=== PATIENT | male | born 1945 | race Caucasian/White ===

== ENCOUNTER 2019-11-30 15:22 | Observation (INO) | payer MEDICARE, OTHER ==
[~2019-11-30] VITALS: Ht 172.7 cm; Wt 75.8 kg
[~2019-11-30 15:22] MED LIST: ALLOPURINOL300 MG PO; ASPIRIN325 MG PO; DIOVAN HCT 1601 EAC1 PO; THERAGRAN-M PR1 EAC1 PO
--- NOTE | 2019-11-30 15:49 | Emergency Department Note ---
History of Present Illnes History of Present Illness Chief Complaint: Fever History of Present Illness This is a 74 year old male, with a history of hypertension, hyperlipidemia, history of hemorrhagic CVA with left hemiparesis, and gout who presents with a 2 day history of intermittent fevers. His last temp was 102 this morning, but patient nor his can recall whether or not he took any medication for the fever. His current temp is 99.2. Patient's , who is his primary caregiver, noted what appeared to be blood in his urine yesterday, on the diaper. However, patient has been taking OTC "Azo" daily for the past month, as he was having some inconvenient urinary incontinence, and the Azo seemed to help with the incontinence issue. He denies ever having had any dysuria, but he was having frequency and urgency. He has had no previous history of UTI, pyelonephritis, or nephrolithiasis. Patient denies any abdominal pain, chest pain, shortness of breath, cough, upper respiratory symptoms, diarrhea, nausea, or vomiting. He has had some decreased appetite for the past 2 days. He denies any known sick contacts or exposure to Covid 19. Historian: Patient, Family Member () Arrival Mode: Car History limited by: condition of the patient (Pt has dysarthria and speaks very slowly and somewhat difficult to understand; provides most of history;) Netbackup Administrator Required: No Onset (how long ago): day(s) (2) Location: general Quality: fever Radiation: Reports non-radiation Severity: moderate Onset quality: sudden Duration (how long): day(s) (2) Timing of current episode: constant Progression: waxing and waning Chronicity: new Context: Denies recent illness, Denies recent surgery, Denies trauma/injury Relieving factors: medication (He took Advil yesterday;) Exacerbating factors: none Associated symptoms: Reports fever/chills, Reports headaches (chronic, frequent headaches), Reports loss of appetite, Reports malaise; Denies confusion, Denies chest pain, Denies cough, Denies nausea/vomiting, Denies rash, Denies shortness of breath, Denies weakness Treatments prior to arrival: none Risk factors: age, general debility, due to hx of CVA with left hemiparesis Past Medical/Family History Physician Review I have reviewed the patient's past medical and family history. Any updates have been documented here. Past Medical History Recent Fever: Yes Clinical Suspicion of Infectio: Yes New/Unexplained Change in Ment: No Past Medical History: Hypertension, CVA (Hemorrhaghic CVA in 2016;), Hyperlipedemia Other Medical History: Gout Past Surgical History: Hernia Repair (Left inguinal ) Social History Smoking Cessation: Never Smoker Alcohol Use: None Any Illegal Drug Use: No TB Exposure/Symptoms: No Physically hurt or threatened: No Other Last Tetanus: < 5 years; Any Pre-Existing Lines (PICC,: No Is patient up to date on immun: Yes Review of Systems Review of Systems Constitutional: Reports chills, Reports fever, Reports malaise EENTM: Reports no symptoms Cardiovascular: Denies chest pain, Denies edema Respiratory: Denies chest congestion, Denies cough, Denies pain on inspiration, Denies dyspnea Gastrointestinal: Denies abdominal pain, Denies diarrhea, Denies nausea, Denies vomiting Genitourinary: Reports frequency, Reports hematuria; Denies dysuria, Denies pain Musculoskeletal: Denies back pain, Denies joint pain, Denies muscle pain, Denies neck pain Integumentary: Denies change in color, Denies rash Neurological: Reports headache (frequent, intermittent, no worse than usual;), Reports pre-existing deficit (Left hemiparesis;) Psychological: Reports no symptoms Hematological/Lymphatic: Reports no symptoms Review of other systems: All other systems negative Physical Exam Related Data Allergies: Coded Allergies: No Known Allergies (Unverified , 11/19/13) Vital signs reviewed: Yes Physical Exam CONSTITUTIONAL Constitutional: Present well-developed, Present well-nourished, Present other (LLE in a splint for foot drop; ); Absent ill appearing HENT HENT: Present normocephalic, Present atraumatic, Present oropharynx normal, Present mucosae dry, Present nose normal; Absent nasal congestion, Absent rhinorrhea, Absent oropharyngeal exudate HENT L/R: Present left ext ear normal, Present right ext ear normal EYES Eyes: Reports PERRL, Reports conjunctivae normal NECK Neck: Present ROM normal, Present supple; Absent cervical adenopathy PULMONARY Pulmonary: Present effort normal, Present breath sounds normal CARDIOVASCULAR Cardiovascular: Present regular rhythm, Present heart sounds normal, Present capillary refill normal, Present normal rate GASTROINTESTINAL Abdominal: Present soft, Present nontender, Present bowel sounds normal; Absent distension, Absent guarding, Absent rebound GENITOURINARY Genitourinary: Present exam deferred SKIN Skin: Present warm, Present dry; Absent erythema MUSCULOSKELETAL Musculoskeletal: Present deformity (LUE - contracted and unable to use much;); Absent edema, Absent tenderness, Absent swelling NEUROLOGICAL Neurological: Present alert, Present oriented x 3, Present abnormal coordination, Present abnormal gait, Present weakness (LUE/LLE hemiparesis; left facial droop; ) PSYCHOLOGICAL Psychological: Present mood/affect normal, Present behavior normal Results Laboratory Lab results reviewed: Yes Laboratory comments WBC = 12.3, no anemia, nl platelets' MetLac - glu = 167; Lactic Acid = 2.92; PT = 13.4, INR = 1.1; PTT - to be done at hospital, as cannot be run at [facility]. UA - blo - moderate, pro = 100 mg/dl, uro = 2.0, nit - neg., Leuk - Large; 2nd Lactic Acid 19:30 - 1.08; Blood cx x 2 - drawn and pend; Urine culture - pend; Imaging Imaging results reviewed: Yes Impressions [place] [address] Patient Name: KERLINE MORAN MR #: [id number] : 1945 Age/Sex: 74/M Req #: [id number] Adm Physician: Ordered by: AMBER GREY MD Report #: [id number] Location: [facility] Room/Bed: Procedure: [id number] HOPD/CXR 1 VEW - HOPD Exam Date: 11/30/19 Exam Time: 1637 REPORT STATUS: Signed EXAMINATION: CXR 1 VEW - HOPD INDICATION: fever COMPARISON: None FINDINGS: AP view TUBES and LINES: None. . LUNGS/PLEURA: Lungs are well inflated. There is no evidence of pneumonia or pulmonary edema.. There is no pleural effusion or pneumothorax. HEART AND MEDIASTINUM: The cardiomediastinal silhouette is unremarkable. BONES AND SOFT TISSUES: No acute osseous lesion. Soft tissues are unremarkable. UPPER ABDOMEN: No free air under the diaphragm. IMPRESSION: No acute thoracic abnormality. Signed by: Evgeny Avery MD on 11/30/2019 4:39 PM Dictated By: EVGENY AVERY MD 38 Transcribed By: SUDHEER on 11/30/191638 COPY TO: AMBER GREY MD~ Diagnostics Tests Diagnostic test(s) reviewed: Yes Assessment & Plan Medical Decision Making MDM - Discussed results with patient and , along with need for admission for treatment of Sepsis and UTI. They are agreeable. - Pt taking "Azo" DAILY x 1 month for urinary incontinence, which likely masked his symptoms for quite some time, until he developed fever 2 days ago. 17:50 - case discussed with Dr. Dax Centeno, who was agreeable to admission. He requested "Admit" status. 19:30 - second Lactic acid = 1.08, following 1L of IV NS; Vital Signs remain stable with NO evidence of septic shock. Bed assigned and awaiting transport to [facility], via EMS. Assessment & Plan Final Impression: (1) Sepsis (2) UTI (urinary tract infection) (3) Hypertension (4) Hyperlipidemia (5) History of CVA with residual deficit Depart Disposition: ADMITTED (to [facility] by Dr. Dax Centeno) Home Meds Reported Medications Aspirin (ASPIRIN) 325 Mg Tablet, 325 MG PO PRN, TAB 11/19/13 Valsartan/Hydrochlorothiazide (DIOVAN HCT 160-25 MG TABLET) 1 Each Tablet, MG PO DAILY 11/19/13 Allopurinol (ALLOPURINOL) 300 Mg Tablet, 300 MG PO DAILY, #30 TAB 11/19/13 AMBER GREY MD Nov 30, 2019 15:49
--- NOTE | 2019-11-30 16:43 | Diagnostic Imaging Report ---
EXAMINATION: CXR 1 VEW - HOP INDICATION: fever COMPARISON: None FINDINGS: AP view TUBES and LINES: None. . LUNGS/PLEURA: Lungs are well inflated. There is no evidence of pneumonia or pulmonary edema.. There is no pleural effusion or pneumothorax. HEART AND MEDIASTINUM: The cardiomediastinal silhouette is unremarkable. BONES AND SOFT TISSUES: No acute osseous lesion. Soft tissues are unremarkable. UPPER ABDOMEN: No free air under the diaphragm. IMPRESSION: No acute thoracic abnormality. Signed by: Evgeny Frederick MD on 11/30/2019 4:39 PM
[2019-11-30] MEDS ORDERED: SODIUM CHLORIDE 0.9% 1000ML 1,000 ML IV SCH (17:00)
[2019-11-30] MEDS ORDERED: CEFTRIAXONE SOD 1 GM VIAL ONE (17:10)
[2019-11-30] MEDS ORDERED: SODIUM CHLORIDE 0.9% 1000ML 1,000 ML ONE ×2 (17:10→20:32)
[2019-11-30] MEDS ORDERED: CEFTRIAXONE SOD 1 GM/NS 50 ML 50 ML IV ONE (17:10)
[2019-11-30] MEDS: CEFTRIAXONE SOD 2 GM/NS 100 ML 100 ML IV SCH (17:15)
[2019-11-30] MEDS ORDERED: ONDANSETRON HCL INJ 2MG/ML 2ML 2 MG/ML VIAL IV PRN (18:00)
[2019-11-30] MEDS ORDERED: SODIUM CHLORIDE FLUSH 10 ML SYR INJ PRN (18:00)
--- OUTSIDE RECORDS SUMMARY | 2019-11-30 18:06 | XMS REPORT | Continuity of Care Document ---
Author Author [facility] [employer] Jaramillo [employer] Address Unknown Phone Unavailable Care Team Providers Care Sheet Turner Name Role Phone [employer] Unavailable Un available Problems Problem Status Onset Date Classification Date Reported Comments Source G81.94 Active 10/05/2016 [facility] STROKE, LT SIDE Active 06/22/2016 [facility] STROKE LEFT SIDE Active 03/27/2016 [facility] LEFT LEG WEAKNESS Active 03/27/2016 [facility] CVA Active 0 09/17/2015 [facility] LEFT LEG/STROKE Active 08/13/2015 [facility] STROKE Active 2014 [facility] LIFE FLIGHT Active 2014 [facility] Foot-drop (finding) Active Problem 08/11/2017 [facility] Gout (disorder) Active Problem 08/11/2017 [facility] History of cerebrovascular accident with residual deficit (situation) Active Prob mandy 08/11/2017 [facility] Hypertensive disorder, systemic arterial (disorder) Active Problem 08/11/2017 [facility] Impaired fasting glycaemia (disorder) Active Problem [facility] Left hemiplegia (disorder) [facility] hyperlipidemia (disorder) Active Problem [facility] Recurrent major depressive episodes, mod erate (disorder) Active Prob mandy 08/11/2017 [facility] Shoulder pain (finding) Active Problem 08/11/2017 [facility] [place] CVA Active [facility] STROKE LT SIDE Active [facility] sadena Medications Medication Details Route Status Patient Instructions Ordering Provider Order Date Source Triamcinolone Acetonide 1 MG/ML Topical Cream See Instructions, APPLY EXTERNALLY TO THE AFFECTED AREA DAILY NEEDED, # 60 gm, 1 Refill(s), Pharmacy: [id number] Active 05/05/2017 [facility] Lisinopril 10 mg, Route: PO, D rug form: TAB, Daily, Dosing Weight 78.239, kg, Start date: 11/06/14 9:00:00, Duration: 30 day, Stop date: 12/05/14 9:00:00 No Longer Active 11/06/2014 [facility] losartan 25 mg oral tablet 25 mg = 1 tab, PO, Daily, # 90 tab, 0 Refill(s) Active 11/06/2014 [facility] lisinopril 20 mg oral tablet 2 0 mg, PO, Daily, # 90 tab, 2 Refill(s) Inactive 11/06/2014 [facility] Aspirin 81 MG Enteric Coated Tablet 81 mg = 1 tab, PO, Daily, # 30 tab, 0 Refill(s) Active 11/06/2014 [facility] lisinopril 10 mg oral tablet 1 0 mg = 1 tab, PO, Daily, # 30 tab, 0 Refill(s) Inactive 11/06/2014 [facility] atorvastatin 80 mg oral tablet 80 mg = 1 tab, PO, Bedtime, # 30 tab, 0 Refill(s) Active 11/06/2014 [facility] atorvastatin 80 mg, Route: PO, Drug form: TAB, Bedtime, Dosing Weight 78.239, kg, Start date: 11/05/14 21:00:00, Duration: 30 day, Stop date: 12/04/14 21:00:00 Inactive 11/06/2014 [facility] heparin Notes: porcine heparin No Longer Active 11/05/2014 [facility] Aspirin Notes: Do not crush or chew. (Same As: Ecotrin) No Longer Active 11/05/2014 [facility] Zyloprim Notes: (Same as: Zylo prim) No Longer Active 11/05/2014 [facility] Allopurinol Notes: (Same as: Z yloprim) Inactive 11/05/2014 [facility] Lisinopril Notes: (Same as: Pr inivil, Zestril) No Longer Active 11/05/2014 [facility] lansoprazole 30 mg, Route: NG, Drug form: SUSP, Daily, Dosing Weight 79.091, kg, Start date: 11/05/14 9:00:00, Duration: 30 day, Stop date: 12/04/14 9:00:00 No Longer Active 11/05/2014 [facility] pantoprazole 40 mg, Route: IVP , Drug form: INJ, Daily, Dosing Weight 79.091, kg, Start date: 11/05/14 9:00:00, Duration: 30 day, Stop date: 12/04/14 9:00:00 Inactiv e 11/05/2014 [facility] Folic Acid Notes: (Same as: Fo lvite) No Longer Active 11/05/2014 [facility] Thiamine Notes: (Same As: Mechelle min B1) No Longer Active 11/05/2014 [facility] multivitamin Notes: (Same as:T marcus) Take with food. No Longer Active 11/05/2014 [facility] Famotidine Notes: (Same as: Pe pcid) No Longer Active 11/05/2014 [facility] Docusate 100 mg, 1 cap, Route: PO, Drug form: CAP, Q12H, Dosing Weight 79.091, kg, Start date: 11/04/14 21:00:00, Duration: 30 day, Stop date: 12/04/14 9:00:00 No Longer Active 11/05/2014 [facility] Lipitor Notes: Same as Lipitor No Longer Active 11/05/2014 [facility] allopurinol 300 mg oral tablet 300 mg = 1 tab, PO, Daily, 0 Refill(s) Active 11/05/2014 [facility] Regular Insulin, Human 100 UNT/ML Injectable Solution 60 units) Stable for 28 days at room temperature Expires in days from Date No Longer Active 11/05/2014 [facility] Dextrose 50% Syringe 25 gm, 50 mL, Route: IVP, Drug Form: INJ, Dosing Weight 79.091, kg, PRN, PRN Abnormal Lab Result, Start date: 11/04/14 19:36:00, Duration: 30 day, Stop date: 12/04/14 19:35:00 No Longer Active 11/05/2014 [facility] iodixanol Special Instructions : Dose = 2.2ml/kg, Max dose = 150ml -- "To be infused by Radiology Staff ONLY" Inactive 11/05/2014 [facility] enalapril Notes: (Same as: Vas otec-IV) No Longer Active 11/05/2014 [facility] Labetalol 105 mmHg, Priority: Routine, Start date: 11/04/14 19:02:00, Duration: 3 doses or times, Stop date: Limited # of times No Longer Active 11/05/2014 [facility] Acetaminophen Notes: Do not ex ceed 4 gm/day. (Same as: Tylenol) No Longer Active 11/05/2014 [facility] Bisacodyl Notes: (Same As: Dul colax, Bisco-Lax) No Longer Active 11/05/2014 [facility] Saline Flush 0.9% Notes: (Same as: BD Posiflush) No Longer Active 2014 [facility] Allergies, Adverse Reactions, Alerts Substance Category Reaction Severity Reaction type Status Date Reported Comments Source REINA Inhibitors Assertion Drug allergy Active [facility] Immunizations Immunization Date Given Site Status Last Updated Comments Source influenza virus vaccine, inactivated<sup>1</sup> 11/17/2016 Right Deltoid completed Mikey Result Comment: patient waited 15 min with no reaction [facility] Hx influenza vaccine-unspecified 01/26/2016 completed C rfeeman [facility] Hx pneumococcal vaccine 2014 completed C freeman [facility] Results Order Name Results Value Reference Range Date Interpretation Comments Source LIPIDS LDL Direct 108 <=99 mg/dL 11/06/2014 [facility] SPECIAL CHEMISTRY Hgb A1C 5.8 <=5.6 % 11/06/2014 [facility] ELECTROLYTES AGAP 14.1 10.0 - 20.0 11/06/2014 [facility] ELECTROLYTES Bili Total 1.1 0.2 - 1.3 11/06/2014 [facility] ELECTROLYTES AST 57 0 - 37 11/06/2014 [facility] ELECTROLYTES ALT 26 0 - 65 11/06/2014 [facility] ELECTROLYTES Alk Phos 55 39 - 136 11/06/2014 [facility] ELECTROLYTES Albumin Lvl 4.0 3.5 - 5.0 11/06/2014 [facility] ELECTROLYTES Potassium Lvl 4.1 3.5 - 5.1 11/06/2014 [facility] ELECTROLYTES BUN 8 7 - 22 11/06/2014 [facility] ELECTROLYTES Glucose Lvl 104 70 - 99 11/06/2014 [facility] ELECTROLYTES Sodium Lvl 139 135 - 145 11/06/2014 [facility] ELECTROLYTES Creatinine Lvl 1.1 0.5 - 1.4 11/06/2014 [facility] ELECTROLYTES A/G Ratio 1.2 0.7 - 1.6 11/06/2014 [facility] ELECTROLYTES B/C Ratio 7 6 - 25 11/06/2014 [facility] ELECTROLYTES Globulin 3.2 2.0 - 4.0 11/06/2014 [facility] ELECTROLYTES CO2 27 24 - 32 11/06/2014 [facility] ELECTROLYTES Chloride Lvl 102 95 - 109 11/06/2014 [facility] ELECTROLYTES Total Protein 7.2 6.4 - 8.4 11/06/2014 [facility] ELECTROLYTES Calcium Lvl 8.9 8.5 - 10.5 11/06/2014 [facility] ELECTROLYTES eGFR 68 11/06/2014 Result Comment: The eGFR is calculated using the CKD-EPI formula. In most young, healthy individuals the eGFR will be >90 mL/min/1.73m2. The eGFR declines with age. An eGFR of 60-89 may be normal in some populations, particularly the elderly, for whom the CKD-EPI formula has not been extensively validated. Use of the eGFR is not recommended in the following populations:

Individuals with unstable creatinine concentrations, including patients and those with serious co-morbid conditions.

Patients with extremes in muscle mass or diet.

The data above are obtained from the National Kidney Disease Education Program (NKDEP) which additionally recommends that when the eGFR is used in patients with extremes of body mass index for purposes of drug dosing, the eGFR should be multiplied by the estimated BMI. [facility] CHEM PANEL eGFR 76 11/05/2014 Result Comment: The eGFR is calculated using the CKD-EPI formula. In most young, healthy individuals the eGFR will be >90 mL/min/1.73m2. The eGFR declines with age. An eGFR of 60-89 may be normal in some populations, particularly the elderly, for whom the CKD-EPI formula has not been extensively validated. Use of the eGFR is not recommended in the following populations:

Individuals with unstable creatinine concentrations, including patients and those with serious co-morbid conditions.

Patients with extremes in muscle mass or diet.

The data above are obtained from the National Kidney Disease Education Program (NKDEP) which additionally recommends that when the eGFR is used in patients with extremes of body mass index for purposes of drug dosing, the eGFR should be multiplied by the estimated BMI. [facility] CHEM PANEL Calcium Lvl 8.7 8.5 - 10.5 11/05/2014 [facility] CHEM PANEL CO2 20 24 - 32 11/05/2014 [facility] CHEM PANEL AGAP 16.7 10.0 - 20.0 11/05/2014 [facility] CHEM PANEL Creatinine Lvl 1.0 0.5 - 1.4 11/05/2014 [facility] CHEM PANEL Sodium Lvl 137 135 - 145 11/05/2014 [facility] CHEM PANEL B/C Ratio 6 6 - 25 11/05/2014 [facility] CHEM PANEL Total Protein 7.6 6.4 - 8.4 11/05/2014 [facility] CHEM PANEL Albumin Lvl 4.1 3.5 - 5.0 11/05/2014 [facility] CHEM PANEL Glucose Lvl 111 70 - 99 11/05/2014 [facility] CHEM PANEL BUN 6 7 - 22 11/05/2014 [facility] CHEM PANEL Potassium Lvl 3.7 3.5 - 5.1 11/05/2014 [facility] CHEM PANEL Chloride Lvl 104 95 - 109 11/05/2014 [facility] CHEM PANEL AST 44 0 - 37 11/05/2014 [facility] CHEM PANEL Alk Phos 53 39 - 136 11/05/2014 [facility] CHEM PANEL Bili Total 0.9 0.2 - 1.3 11/05/2014 [facility] CHEM PANEL ALT 31 0 - 65 11/05/2014 [facility] CHEM PANEL Globulin 3.5 2.0 - 4.0 11/05/2014 [facility] CHEM PANEL A/G Ratio 1.2 0.7 - 1.6 11/05/2014 [facility] CHEM PANEL Bili Direct 0.2 0.0 - 0.3 11/05/2014 [facility] HEMATOLOGY INR 1.83 0.85 - 1.17 11/05/2014 [facility] HEMATOLOGY PT 21.6 12.0 - 14.7 11/05/2014 [facility] HEMATOLOGY PTT 37.1 22.9 - 35.8 11/05/2014 [facility] HEMATOLOGY Hct 42.6 42.0 - 54.0 11/05/2014 [facility] HEMATOLOGY RBC 4.32 4.70 - 6.10 11/05/2014 [facility] HEMATOLOGY WBC 11.5 3.7 - 10.4 11/05/2014 [facility] HEMATOLOGY Hgb 14.1 14.0 - 18.0 11/05/2014 [facility] HEMATOLOGY RDW 13.0 11.5 - 14.5 11/05/2014 [facility] HEMATOLOGY MPV 7.6 7.4 - 10.4 11/05/2014 [facility] HEMATOLOGY Platelet 255 133 - 450 11/05/2014 [facility] HEMATOLOGY MCHC 33.1 32.0 - 36.0 11/05/2014 [facility] HEMATOLOGY MCH 32.6 27.0 - 31.0 11/05/2014 [facility] HEMATOLOGY MCV 98.6 80.0 - 94.0 11/05/2014 [facility] HEMATOLOGY Sed Rate 3 0 - 15 11/05/2014 [facility] HEMATOLOGY Monocytes # 1.1 0.0 - 0.8 11/05/2014 [facility] HEMATOLOGY Lymphocytes # 1.3 1.0 - 5.5 11/05/2014 [facility] HEMATOLOGY Segs-Bands # 9.1 1.5 - 8.1 11/05/2014 [facility] HEMATOLOGY Lymphocytes 11.0 20.0 - 40.0 11/05/2014 [facility] HEMATOLOGY Segs 79.2 45.0 - 75.0 11/05/2014 [facility] HEMATOLOGY Eosinophils 0.2 0.0 - 4.0 11/05/2014 [facility] HEMATOLOGY Basophils 0.3 0.0 - 1.0 11/05/2014 [facility] HEMATOLOGY Monocytes 9.3 2.0 - 12.0 11/05/2014 [facility] LIPIDS LDL (Calculated) 107 <=99 mg/dL 11/05/2014 [facility] LIPIDS VLDL 26 11/05/2014 [facility] LIPIDS HDL 72 >=61 mg/dL 11/05/2014 [facility] LIPIDS CHD Risk 2.85 4.00 - 7.30 11/05/2014 [facility] LIPIDS Chol 205 <=199 mg/dL 11/05/2014 [facility] LIPIDS Trig 132 <=149 mg/dL 11/05/2014 [facility] DRUG SCREEN U Cannab Scr Nega tive *NA* (11/04/14 9:27 PM) Negative 11/05/2014 [facility] DRUG SCREEN U Opiate Scr Nega tive *NA* (11/04/14 9:27 PM) Negative 11/05/2014 [facility] DRUG SCREEN U Phencyc Scr Nega tive *NA* (11/04/14 9:27 PM) Negative 11/05/2014 [facility] DRUG SCREEN UDS Note See Note (11/04/14 9:27 PM) 11/05/2014 [facility] DRUG SCREEN U Benzodia Scr Posi tive *ABN* (11/04/14 9:27 PM) Negative 11/05/2014 [facility] DRUG SCREEN U Cocaine Scr Nega tive *NA* (11/04/14 9:27 PM) Negative 11/05/2014 [facility] DRUG SCREEN U Amph Scr Nega tive *NA* (11/04/14 9:27 PM) Negative 11/05/2014 [facility] DRUG SCREEN U Ana Scr Nega tive *NA* (11/04/14 9:27 PM) Negative 11/05/2014 [facility] URINE AND STOOL UA Bacteria Rare 11/05/2014 [facility] URINE AND STOOL UA RBC 6-10 /HPF 0 - 2 11/05/2014 [facility] URINE AND STOOL UA Urobilinogen 0.2 0.1 - 1.0 11/05/2014 [facility] URINE AND STOOL UA Nitrite Negative (11/04/14 9:27 PM) Negative 11/05/2014 [facility] URINE AND STOOL UA Leuk Est Negative (11/04/14 9:27 PM) Negative 11/05/2014 [facility] URINE AND STOOL UA WBC 1 11/05/2014 [facility] URINE AND STOOL UA Sq Epi Rare /LPF Few /LPF 11/05/2014 [facility] URINE AND STOOL UA Color Yellow *NA* (11/04/14 9:27 PM) Yellow 11/05/2014 [facility] URINE AND STOOL UA Protein 100 mg/dL Negative mg/dL 11/05/2014 [facility] URINE AND STOOL UA pH 6.0 5.0 - 8.0 11/05/2014 [facility] URINE AND STOOL UA Spec Grav 1.010 <=1.030 11/05/2014 [facility] URINE AND STOOL UA Turbidity Clear (11/04/14 9:27 PM) Clear 11/05/2014 [facility] URINE AND STOOL UA Ketones Negative *NA* (11/04/14 9:27 PM) Negative 11/05/2014 [facility] URINE AND STOOL UA Blood Large *ABN* (11/04/14 9:27 PM) Negative 11/05/2014 [facility] URINE AND STOOL UA Bili Negative *NA* (11/04/14 9:27 PM) Negative 11/05/2014 [facility] URINE AND STOOL UA Glucose Negative (11/04/14 9:27 PM) Negative 11/05/2014 [facility] CHEM PANEL eGFR 76 11/05/2014 Result Comment: The eGFR is calculated using the CKD-EPI formula. In most young, healthy individuals the eGFR will be >90 mL/min/1.73m2. The eGFR declines with age. An eGFR of 60-89 may be normal in some populations, particularly the elderly, for whom the CKD-EPI formula has not been extensively validated. Use of the eGFR is not recommended in the following populations:

Individuals with unstable creatinine concentrations, including patients and those with serious co-morbid conditions.

Patients with extremes in muscle mass or diet.

The data above are obtained from the National Kidney Disease Education Program (NKDEP) which additionally recommends that when the eGFR is used in patients with extremes of body mass index for purposes of drug dosing, the eGFR should be multiplied by the estimated BMI. [facility] CHEM PANEL POC Creatinine 1.0 0.5 - 1.4 11/05/2014 [facility] CARDIAC ENZYMES CK MB Index 1.1 0.0 - 2.5 2014 [facility] CARDIAC ENZYMES CK MB 3.2 0.5 - 3.6 2014 [facility] CARDIAC ENZYMES Total CK 299 12 - 191 2014 [facility] CARDIAC ENZYMES Troponin-I <0.02 0.00 - 0.40 2014 [facility] ELECTROLYTES AGAP 22.1 10.0 - 20.0 2014 [facility] ELECTROLYTES Potassium Lvl 4.1 3.5 - 5.1 2014 [facility] ELECTROLYTES Calcium Lvl 9.2 8.5 - 10.5 2014 [facility] ELECTROLYTES Chloride Lvl 100 95 - 109 2014 [facility] ELECTROLYTES CO2 16 24 - 32 2014 [facility] ELECTROLYTES Glucose Lvl 207 70 - 99 2014 [facility] ELECTROLYTES BUN 7 7 - 22 2014 [facility] ELECTROLYTES Creatinine Lvl 1.3 0.5 - 1.4 2014 [facility] ELECTROLYTES Sodium Lvl 134 135 - 145 2014 [facility] HEMATOLOGY Eosinophils 0.3 0.0 - 4.0 2014 [facility] HEMATOLOGY Monocytes 3.7 2.0 - 12.0 2014 [facility] HEMATOLOGY Basophils 0.2 0.0 - 1.0 2014 [facility] HEMATOLOGY Segs-Bands # 12.5 1.5 - 8.1 2014 [facility] HEMATOLOGY Lymphocytes 5.7 20.0 - 40.0 2014 [facility] HEMATOLOGY Macrocyte 1+ *ABN* (11/04/14 6:50 PM) None Seen 2014 [facility] HEMATOLOGY Monocytes # 0.5 0.0 - 0.8 2014 [facility] HEMATOLOGY Lymphocytes # 0.8 1.0 - 5.5 2014 [facility] HEMATOLOGY Segs 90.1 45.0 - 75.0 2014 [facility] HEMATOLOGY PTT 23.5 22.9 - 35.8 2014 [facility] HEMATOLOGY INR 1.24 0.85 - 1.17 2014 [facility] HEMATOLOGY PT 15.7 12.0 - 14.7 2014 [facility] HEMATOLOGY Hct 43.1 42.0 - 54.0 2014 [facility] HEMATOLOGY MCV 100.2 80.0 - 94.0 2014 [facility] HEMATOLOGY MPV 7.4 7.4 - 10.4 2014 [facility] HEMATOLOGY Platelet 268 133 - 450 2014 [facility] HEMATOLOGY WBC 13.9 3.7 - 10.4 2014 [facility] HEMATOLOGY MCH 32.8 27.0 - 31.0 2014 [facility] HEMATOLOGY MCHC 32.8 32.0 - 36.0 2014 [facility] HEMATOLOGY RDW 13.1 11.5 - 14.5 2014 [facility] HEMATOLOGY RBC 4.30 4.70 - 6.10 2014 [facility] HEMATOLOGY Hgb 14.1 14.0 - 18.0 2014 [facility] Pathology Reports No Data Provided for This Section Diagnostic Reports Report Value Date Source Brain wo contrast CT EXAM: CT BRAIN WITHOUT CONTRAST DATE: Nov 05, 2014 08:30:00 PM INDICATION: Aphasia COMPARISON: November 05, 2014 4:16 a.m., brain MRI 2014 TECHNIQUE: Contiguous axial images of the brain are obtained from the skull base to the vertex without administration of intravenous contrast material. Bone and soft tissue algorithms are provided. FINDINGS: No recent cortical infarct is evident. There is no interval change in the remote lacunar infarcts involving the deep dailey matter nuclei specifically the thalami bilaterally and left putamen. Multiple white matter remote lacunar infarcts are present coexisting with patchy areas of diffuse white matter attenuation abnormality indicative of advanced chronic microvascular ischemia. The appearance of the remainder of the brain parenchyma is also unchanged. Incidental imaging of the orbits, paranasal sinuses, skull, and skull base also demonstrates no interval change. IMPRESSION: No recent cortical infarct or hemorrhage. CT examination of the brain is unchanged. 11/05/2014 [facility] Brain wo contrast CT EXAM: CT of the brain without contrast. DATE: 11/05/2014 CLINICAL HISTORY: Acute cognitive change. COMPARISON: MRI 2014. TECHNIQUE: Axial images of the brain were obtained in a helical scanner from the skullbase through the vertex without contrast material administration. DISCUSSION: Hyperintense T2 lesions in the supratentorial white matter consistent with small vessel disease. No acute intracranial hemorrhage, hydrocephalus or midline shift. Old lacunar infarcts in the thalami and basal ganglia bilaterally. No acute bony lesions and the paranasal sinuses are clear. IMPRESSION: No early signs of brain ischemia. 11/05/2014 [facility] Brain wo contrast MRI EXAM: MR I BRAIN WITHOUT CONTRAST DATE: Nov 05, 2014 12:10:00 AM INDICATION: Acute cognitive change TECHNIQUE: Multiplanar multisequence MRI images of the head were obtained without intravenous contrast administration. COMPARISON: CT angiogram the head and neck dated 2014 FINDINGS: Diffusion-weighted images do not demonstrate any evidence of ischemic change. There is generalized moderate cerebral volume loss causing [id number] ex vacuo dilatation of the ventricular system as well as prominence of extra-axial fluid spaces. Multiple confluent as well as scattered foci of T2 hyperintensity in periventricular, deep and subcortical white matter, likely related to sequela of chronic microvascular ischemic changes. Note is made of bilateral basal ganglia and thalamic lacunar infarcts with areas of susceptibility within them suggestive of old microhemorrhages. There is no evidence of mass effect or midline shift. No evidence of intracranial hemorrhage is seen. Basal cisterns are preserved. No pathological extra-axial fluid collection is seen. Visualized paranasal sinuses are clear. Bilateral mastoid air cells are clear. Both orbits appear unremarkable. IMPRESSION: 1. No acute intracranial abnormality. 2. Diffuse moderate cerebral volume loss with sequela of moderate chronic microvascular ischemic changes as detailed above. 3. Bilateral basal ganglia and thalamic lacunar infarcts with few areas of susceptibility within them suggestive of old microhemorrhages. These findings are in agreement with preliminary report made by appraiser irrigation tax Technical Operations Specialist. Creator:Ariana Connelly Date:Nov 05, 2014 01:36:56 Subject: No evidence of recent ischemia. 2014 [facility] Chest 1view DX EXAM: XR CHEST 1 VIEW DATE: 2014 07:31:00 PM. INDICATION: Weakness. COMPARISON: None available. TECHNIQUE: Single AP view of the chest. DISCUSSION: There is mild right basilar subsegmental atelectasis. There is no focal consolidation, pleural effusion, or pneumothorax. The cardiomediastinal silhouette is normal for technique. There is mild calcification of the aortic knob. No acute skeletal abnormality is identified. IMPRESSION: Mild right basilar subsegmental atelectasis, otherwise no acute abnormality. 2014 [facility] Brain/Neck Stroke perfusion CTA CT ANGIOGRAM OF THE HEAD AND NECK AND CT PERFUSION DATE: 2014 at 7:07 p.m. Comparison studies: Outside imaging from [facility] stroke team 2014 at 5:55 p.m. CLINICAL INFORMATION: Weakness. Aphasia. TECHNIQUE: Axial images were obtained from the vertex through the upper thorax at 1.5 mm intervals in the enhanced mode. 3-D maximum intensity projection, MIP images were also created. Dynamic images on limited area of the brain parenchyma are performed during bolus injection of iodinated contrast material. Cerebral perfusion analysis using computed tomography with contrast administration including post-processing of parametric maps with determination of cerebral blood flow, cerebral blood volume, time to peak and mean transit time. FINDINGS: Atherosclerotic calcification is noted within the wall of the aortic arch and proximal left subclavian artery without stenosis. There is normal contrast- enhancement of the aortic arch and proximal great vessels. The right innominate, left common carotid, and left subclavian arteries arise normal anatomic configuration. There are no proximal stenoses. Calcified atherosclerotic plaque is noted within the bilateral carotid bulbs without stenosis. There is normal contrast-enhancement of the bilateral common, internal, and external carotid arteries. There is normal contrast-enhancement of the bilateral vertebral arteries. Linear filling defects are noted within the made left vertebral artery at the approximate C4 to C6 level likely representing streak artifact and quantum mottle. Intracranially there is normal contrast-enhancement of the bilateral intracranial internal carotid arteries, the bilateral distal vertebral arteries, and the basilar artery. Atherosclerotic calcification is noted within the krishnan of the bilateral cavernous internal carotid arteries without stenosis.There is normal contrast enhancement of the bilateral anterior, middle, and posterior cerebral arteries. There is normal contrast-enhancement of the superior cerebellar, and posterior inferior cerebellar arteries bilaterally. There are no intracranial branch occlusions. There is normal contrast-enhancement of the venous structures. Perfusion imaging is limited due to poor contrast bolus. There is grossly no evidence of cerebral ischemia. IMPRESSION: 1. Calcified atherosclerotic plaque of t he aortic arch, proximal left subclavian artery, bilateral carotid bulbs, bilateral cavernous internal carotid arteries without stenosis. 2. No intracranial branch occlusions. 3. Limited perfusion study without evide nce of cerebral ischemia. Resident preliminary report by Dr. Ariana Connelly: * Irregular linear lucency within the left vertebral artery from approximately C4-C6 is thought to represent artifact (6/143-154), less likely dissection with intimal flap. * No major arterial occlusion or aneurysm is identified. * Atherosclerosis of the carotid siphons. Findings were discussed with Dr. Morales EC, @ 1940 hours. 2014 [facility] Consultation Notes No Data Provided for This Section Discharge Summaries No Data Provided for This Section History and Physicals No Data Provided for This Section Vital Signs Vital Sign Value Date Comments Source BMI Calculated 20.57 03/02/2017 [facility] Weight 61.364 03/02/2017 [facility] Respitory Rate 16 03/02/2017 [facility] Heart Rate 65 03/02/2017 [facility] Systolic (mm Hg) 114 03/02/2017 [facility] Diastolic (mm Hg) 68 03/02/2017 [facility] Temperature Oral (F) 98.2 F 03/02/2017 [facility] Height 172.72 cm 03/02/2017 [facility] Temperature Oral (F) 97.6 F 11/06/2014 [facility] Heart Rate 72 11/06/2014 [facility] Systolic (mm Hg) 143 11/06/2014 [facility] Diastolic (mm Hg) 75 11/06/2014 [facility] Respitory Rate 18 11/06/2014 [facility] Systolic (mm Hg) 147 11/06/2014 [facility] Diastolic (mm Hg) 83 11/06/2014 [facility] Heart Rate 68 11/06/2014 [facility] Respitory Rate 18 11/06/2014 [facility] Temperature Oral (F) 97.1 F 11/06/2014 [facility] Temperature Oral (F) 98.6 F 11/06/2014 [facility] Heart Rate 57 11/06/2014 [facility] Respitory Rate 17 11/06/2014 [facility] Systolic (mm Hg) 153 11/06/2014 [facility] Diastolic (mm Hg) 82 11/06/2014 [facility] Height 172.72 cm 11/05/2014 [facility] BMI Calculated 26.23 11/05/2014 [facility] Weight 78.239 11/05/2014 [facility] Weight 79.091 2014 [facility] Encounters Location Location Details Encounter Type Encounter Number Reason For Visit Attending Provider ADM Date DC Date Status Source [facility] Inpatient [id number] BaljitNichelle Taye 2014 11/06/2014 [facility] Outpatient [id number] WILLAM PETERSON 06/07/2016 Active [facility] [place] OP Therapy Patients [id number] Albinoihao Nicholas 06/22/2016 07/22/2016 [facility] [place] Outpatient [id number] ALBINOIHAO NICHOLAS 07/14/2016 Active [facility] [place] OP Therapy Patients [id number] Albinoihao Nicholas 07/22/2016 08/21/2016 [facility] [place] Outpatient [id number] WILLAM PETERSON 08/09/2016 Active [facility] Outpatient [id number] WILLAM PETERSON 09/08/2016 Active [facility] [place] OP Therapy Patients [id number] Zhihao Nicholas 10/05/2016 2016 [facility] [place] [facility] [id number] Albinoihao Nicholas 11/08/2016 12/08/2016 [facility] [place] Outpatient [id number] ALBINOIHAO NICHOLAS 11/17/2016 Active [facility] [place] OP Therapy Patients [id number] Albinoihao Nicholas 12/08/2016 01/07/2017 [facility] [place] Outpatient [id number] ALBINOIHAO NICHOLAS 01/31/2017 Active [facility] Outpatient [id number] ALBINOIHAO NICHOLAS 03/02/2017 Active [facility] Outpatient [id number] Albinoihjina Peterson 03/02/2017 03/03/2017 [facility] Outpatient [id number] WILLAM PETERSON 05/04/2017 Active [facility] Ambulatory Pre-Reg [id number] Willam Peterson 05/04/2017 05/04/2017 [facility] Primary [facility] Phone Message [id number] 05/04/2017 05/06/2017 [facility] Procedures Procedure Code Date Perfomer Comments Source Cataract surgery [id number] 03/27/2013 [facility] ,[facility] Angiogram [id number] 03/27/2009 [facility] Hernia repair [id number] [facility] Rotator cuff repair<sup>1</sup> [id number] aliviadamon tavarezsuzie benavides [facility] ,[facility] Assessment and Plan Assessment and Plan Date Source Extracted from:Title: Neurology Stroke P rogress Note Author: Gregg Kothari MD Date: 11/06/14 STROKE ATTENDING S: NO overnight events Exam: Normal Imaging: Initial CTA on 11/04/14: No sig stenosis of occlusion in neck or COW Follow up CTH on 11/05/14 : no hemorrhage, 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 The LV ejection fraction is estimated at 60%-65%. Abnormal left ventricular diastolic filling is observed, consistent with impaired LV relaxation. 2) Right ventricle is normal in size and systolic function. TAPSE is calculated at 1.7 cm. 3) Both atria are normal in size. 4) There is no interatrial shunt demonst rated by saline contrast study, at rest or during Valsalva maneuver/cough. EKG: NSR Labs: Trops: neg Coags: nl LDL: 108 HgbA1c: 5.8 Assessment: 69 yr old with pmh sig for gout, HTN, HLD p/w aphasia and seizure s/p TPA possible aborted stroke vs seizure Plan: Aborted Stroke Seizure 780.39 Current suspected etiology: to be determined Continue evaluation: Complted Treatment/Plan: ASA for stroke prevention Statin if LDL > 100, normalize BP, d/c home [facility] stroke clinic follow up I spent a total of 15 minutes time out of 25 minutes at the bedside evaluating the patient, reviewing data and discussing the plan of care with the teams and updating the family/patient on plan of care counseling and discussing the prognosis of ischemic stroke, and risk factor managment. Discuss philosophy of care with patient and family, reviewed and updated on plan of care and prognosis Other Diagnosis: Code: [id number] LindyLeslieNichelle (Todd) MD [employer] Clerk of Neurology Pager: [phone] Extracted from:Title: Clinical Document Author: Christine Leonard MD Date: 11/06/14 [place] DISCHARGE SUMMARY Name: Kerline Huang Date of Admission: 2014 Date of Discharge : 2014 Admit Diagnoses: gout, seizure, aborted stroke Discharge Diagnoses: aborted stroke, gout, seizure Consults Obtained: none Brief HPI: This patient is a 69 y/o year old R handed caucsasian male with relevant PMH of gout with no anticoagulation who presented with sudden onset of aphasia around 17:30 today. His LSN as 17:00. Patient called AMS, and he was tresbported via [facility], where he had seizure like activity. Fot this he was given 4 mg of versed and Tpa with initial NIHSS 5, bolus of tPA given at 18:06. Initial NHISS was 5 at admission with some improvement on his deficit and new NIHSS was 3. Stroke code called by Er at 18:30, resident at bedside 18:32. CT and CTA performed inmediatelly at 19:11 with L MCA compromise no major obstruction seen on CTA. Hospital Course: While in house he underwent EEG which was normal. Repeat CT did not show any area of hemorrhage or recent infarct. His SBP was mildly elevated during admission and he was given lisinopril. He did develop a cough which he had previously when on lisinopril. He was discharged on losartan for Bp control. His LDL was 108 and HbA1c was 5.8. Depression Screen Score: 0 Cognitive Screen Score: 0 Discharge Physical Examination: GENERAL: A and O x4 HEENT: - Normocephalic and atraumatic LUNGS - with no wheezes CV - equal pulses bilaterally. ABDOMEN - Soft, nontender. 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 - Intact light touch, no neglect Cerebellar signs: Intact FNT, HTS. Gait: defered NIH Stroke Scale (NIHSS) 0 1a. Level of Consciousness; 0-alert 1 -drowsy 2-stupor 0 1b. LOC Questions month and age; 0-b oth 1-one 2-neither 0 1c. LOC Commands open/close eyes, gr ip/release non-paretic hand; 0-both 1- one 2-neither 0 2. Best Gaze; 0-nl 1-partial 2-f orced gaze 0 3. Visual Go; 0-No visual loss. 1- Partial hemianopia 2-Complete 3- Bilateral 0 4. Facial Palsy; 0-none 1-minor 2-pa rtial 3-complete 0 5. Motor - R arm; 0-No drift 1-Drift 2-Some antigravity 3-No antigravity 4-No movement 0 6. Motor - R leg; 0-No drift 1-Drift 2-Some antigravity 3-No antigravity 4-No movement 0 7. Motor - L arm; 0-No drift 1-Drift 2-Some antigravity 3-No antigravity 4-No movement 0 8. Motor - L leg; 0-No drift 1-Drift 2-Some antigravity 3-No antigravity 4-No movement 0 9. Limb Ataxia; 0 absent 1 - 1limb 2 - 2 limbs 0 10. Sensory; 0-nl 1-partial loss 2-dense loss 0 11. Best Language; 0-nl 1-mild/mod 2-severe 3-mute 0 12. Dysarthria; 0-nl 1-mild/mod 2-severe x-untestable 0 13. Extinction and Inattention (former ly Neglect); 0-none 1-partial 2-complete TOTAL SCORE Etiology of stroke: cause unknown but MRI with moderate chronic microvascular changes Discharge Medications: See EMAR Discharged on ASA 81 mg and Atorvastatin 80 mg qhs Disposition: HOME Follow up : December 24, [address] [facility] #[phone] PCP in 1 week Discharge Instructions: The patient received stroke education regarding signs and symptoms of stroke. They were instructed to call 911 if similar symptoms occurred again. The list of their medications on discharged was reviewed with the patient and all questions were answered. Mention critical home meds such as ASA, Statin. No PT/OT/Speech Therapy needs. 11/06/2014 [facility] Plan of Care No Data Provided for This Section Social History Social History Date Source Social History TypeResponse Substance Abuse Use: None. Alcohol Past, Type Beer. Frequency: Daily. Previous treatment: None. Smoking Status Never smoker; Ready to change: No; Exposure to Tobacco Smoke None; Cigarette Smoking Last 365 Days No; Reg Smoking Cessation Counseling No entered on: 03/02/17 01/31/2017 [facility] Social History TypeResponse Substance Abuse Use: None. Alcohol Past, Type Beer. Frequency: Daily. Previous treatment: None. Alcohol use interferes with work or home: No. Drinks more than intended: Yes. Others hurt by drinking: No. Ready to change: No. Household alcohol concerns: No. Smoking Status Never smoker; Ready to change: No; Concerns about tobacco use in household: No; Exposure to Tobacco Smoke None; Cigarette Smoking Last 365 Days No; Reg Smoking Cessation Counseling No 09/08/2016 [facility] Social History TypeResponse Substance Abuse Use: None. Alcohol Current, Type Beer. Frequency: Daily. Previous treatment: None. Alcohol use interferes with work or home: No. Drinks more than intended: Yes. Others hurt by drinking: No. Ready to change: No. Household alcohol concerns: No. Smoking Status Never smoker; Ready to change: No; Concerns about tobacco use in household: No; Exposure to Tobacco Smoke None; Cigarette Smoking Last 365 Days No; Reg Smoking Cessation Counseling No 11/05/2014 [facility] Family History No Data Provided for This Section Advance Directives No Data Provided for This Section Functional Status No Data Provided for This Section
--- OUTSIDE RECORDS SUMMARY | 2019-11-30 18:06 | XMS REPORT | Continuity of Care Document ---
Author Author [facility] Organization [facility] Address [address] [place] [address] Phone Unavailable Care Team Providers Care Mail Distribution Clerk Name Role Phone Riaz GREY Attphys Unavailable Willam Robledo Attphys Gregg Kothari Attphys Gregg Kothari Admphys Problems Condition Name Condition Details Condition Category Status Onset Date Resolution Date Last Treatment Date Treating Clinician Comments Source G81.94 G81. 94 Active 10/05/2016 [facility] [place] Diagnosis Active 2016-10-05 08:00:00 2016-12-08 11:57:00 [facility] STROKE, LT SIDE STRO KE, LT SIDE Active 06/22/2016 [facility] [place] Diagnosis Active 2016-06-22 07:00:00 2016-07-29 10:43:00 [facility] STROKE LEFT SIDE STRO KE LEFT SIDE Active 03/27/2016 [facility] [place] Diagnosis Active 2016-03-27 08:00:00 2016-09-29 16:38:[address] [facility] LEFT LEG WEAKNESS LEFT LEG WEAKNESS Active 03/27/2016 [facility] [place] Diagnosis Active 2016-03-27 08:00:00 2016-10-05 12:53:00 [facility] CVA CVA Active 09/17/2015 [facility] Diagnosis Act brandon 2015-09-17 00:00:00 2016-06-14 23:12:00 [facility] LEFT LEG/STROKE LEFT LEG/STROKE Active 08/13/2015 [facility] [place] Diagnosis Active 2015-08-13 08:00:00 2016-11-08 12:03:00 [facility] STROKE STRO KE Active 2014 [facility] Diagnosis Active 2014 00:00:00 2014-11-06 08:21:00 Rufina Hopkins LIFE FLIGHT LIFE FLIGHT Active 2014 [facility] Diagnosis Active 2014 00:00:00 2014-11-14 10:05:00 Rufina Hopkins Foot-drop (finding) Foot -drop (finding) Active Problem 08/11/2017 [facility] [place] Problem Active 2017-08-11 14:16:14 Rufina Hopkins Gout (disorder) Gout (disorder) Active Problem 08/11/2017 [facility] [place] Problem Active 2017-08-11 14:16:14 Al Hopkins History of cerebrovascular accident with residual defi cit (situation) History of cerebrovascular accident with residual deficit (situation) Active Problem 08/11/2017 [facility] [place] Problem Active 2017-08-11 14:16:14 Al Hopkins Hypertensive disorder, systemic arterial (disorder) Hypertensive disorder, systemic arterial (disorder) [facility] [place] [facility] Active 2017-08-11 14:16:14 Rufina Hopkins 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) Active Problem 08/11/2017 Medical [facility] [place] Problem Active 2017-08-11 14:16:14 Rufina Hopkins Left hemiplegia (disorder) Lef t hemiplegia (disorder) Active Problem 08/11/2017 [facility] [place] Problem Active 2017-08-11 14:16:14 Rufina Hopkins Mixed hyperlipidemia (disorder) Mixed hyperlipidemia (disorder) Active Problem [facility]/11/2017 [facility] [place] Problem Active 2017-08-11 14:16:14 Al Hopkins Recurrent major depressive episodes, moderate (disorde r) Recurrent major depressive episodes, moderate (disorder) Active Problem 08/11/2017 [facility] [place] Problem Active 2017-08-11 14:16:14 Rufina Hopkins Shoulder pain (finding) Shou lder pain (finding) Active Problem 08/11/2017 [facility] [place] Problem Active 2017-08-11 14:16:14 Rufina Hopkins CVA CVA Active [facility] Diagnosis Active 2014-11-06 08:21:00 [facility] STROKE LT SIDE STRO KE LT SIDE Active [facility] [place] Diagnosis Active 2016-07-24 16 :17:00 [facility] Allergies, Adverse Reactions, Alerts Allergy Name Allergy Type Status Severity Reaction(s) Onset Date Inacti ve Date Treating Clinician Comments Source REINA Inhibitors REINA Inhibitors Active [facility] Social History Social Habit Start Date Stop Date Quantity Comments Source Social History 2014-11-05 06:14:25 2014-11-05 06:14:[address] [facility] Medications Ordered Medication Name Filled Medication Name Start Date Stop Da te Current Medication? Ordering Clinician Indication Dosage Frequency Signature (SIG) Comments Components Source Triamcinolone Acetonide 1 MG/ML Topical Cream 2017-05-05 06:31:1 7 Yes See Instructions, APPLY EXTERNALLY TO TH E AFFECTED AREA DAILY NEEDED, # 60 gm, 1 Refill(s), Pharmacy: [facility] [id number] [place] [address] [place] Lisinopril 2014-11-06 14:00:00 No 10 mg, Route: PO, Drug form: TAB, Daily, Dosing Weight 78.239, kg, Start date: 11/06/14 9:00:00, Duration: 30 day, Stop date: 12/05/14 9:00:00 Rufina gunter losartan 25 mg oral tablet 2014-11-06 13:44:00 Yes 25 mg = 1 tab, PO, Daily, # 90 tab, 0 Refill(s) Layo Hopkins lisinopril 20 mg oral tablet 2014-11-06 13:10:00 No 20 mg, PO, Daily, # 90 tab, 2 Refill(s) Rufina Marck ramon Aspirin 81 MG Enteric Coated Tablet 2014-11-06 12:11:00 Yes 81 mg = 1 tab, PO, Daily, # 30 tab, 0 Refill(s) [facility] [place] lisinopril 10 mg oral tablet 2014-11-06 12:11:00 No 10 mg = 1 tab, PO, Daily, # 30 tab, 0 Refill(s) Layo Hopkins atorvastatin 80 mg oral tablet 2014-11-06 12:11:00 Yes 80 mg = 1 tab, PO, Bedtime, # 30 tab, 0 Refill(s) [facility] atorvastatin 2014-11-06 02:00:00 No 80 mg, Route: PO, Drug form: TAB, Bedtime, Dosing Weight 78.239, kg, Start date: 11/05/14 21:00:00, Duration: 30 day, Stop date: 12/04/14 21:00:00 [facility] [place] heparin 2014-11-05 23:00:00 No Notes: porci ne heparin [facility] Aspirin 2014-11-05 23:00:00 No Notes: Do not crush or chew. (Same As: Ecotrin) [facility] Zyloprim 2014-11-05 22:04:00 No Notes: (Lukas e as: Zyloprim) [facility] Allopurinol 2014-11-05 19:12:00 No Notes: ( Same as: Zyloprim) [facility] Lisinopril 2014-11-05 15:33:00 No Notes: (Same as: Prinivil, Zestril) [facility] lansoprazole 2014-11-05 14:00:00 No 30 mg, Route: NG, Drug form: SUSP, Daily, Dosing Weight 79.091, kg, Start date: 11/05/14 9:00:00, Duration: 30 day, Stop date: 12/04/14 9:00:00 [facility] [place] pantoprazole 2014-11-05 14:00:00 No 40 mg, Route: IVP, Drug form: INJ, Daily, Dosing Weight 79.091, kg, Start date: 11/05/14 9:00:00, Duration: 30 day, Stop date: 12/04/14 9:00:00 Penelopeoria l [place] Folic Acid 2014-11-05 14:00:00 No Notes: (S arlene as: Folvite) [facility] Thiamine 2014-11-05 14:00:00 No Notes: (Lukas e As: Vitamin B1) [facility] multivitamin 2014-11-05 14:00:00 No Notes: (Same as:Thera) Take with food. [facility] Famotidine 2014-11-05 02:00:00 No Notes: (S arlene as: Pepcid) [facility] Docusate 2014-11-05 02:00:00 No 100 mg, 1 cap, Route: PO, Drug form: CAP, Q12H, Dosing Weight 79.091, kg, Start date: 11/04/14 21:00:00, Duration: 30 day, Stop date: 12/04/14 9:00:00 Layo Hopkins Lipitor 2014-11-05 02:00:00 No Notes: Same as Lipitor [facility] allopurinol 300 mg oral tablet 2014-11-05 01:01:00 Yes 300 mg = 1 tab, PO, Daily, 0 Refill(s) Rufina Her gunter Regular Insulin, Human 100 UNT/ML Injectable Solution 2014-11-05 00:36:00 No [address] units) [address] able for 28 days at room temperature Expires in days from Date [facility] Marck ramon Dextrose 50% Syringe 2014-11-05 00:36:00 No 25 gm, 50 mL, Route: IVP, Drug Form: INJ, Dosing Weight 79.091, kg, PRN, PRN Abnormal Lab Result, Start date: 11/04/14 19:36:00, Duration: 30 day, Stop date: 12/04/14 19:35:00 [facility] [place] iodixanol 2014-11-05 00:32:00 No Special Instructions: Dose = 2.2ml/kg, Max dose = 150ml -- "To be infused by Radiology Staff ONLY" [facility] enalapril 2014-11-05 00:02:00 No Notes: (Sa me as: Vasotec-IV) [facility] Labetalol 2014-11-05 00:02:00 No 105 mmHg, Priority: Routine, Start date: 11/04/14 19:02:00, Duration: 3 doses or times, Stop date: Limited # of times [facility] Acetaminophen 2014-11-05 00:02:00 No Notes: Do not exceed 4 gm/day. (Same as: Tylenol) [facility] Bisacodyl 2014-11-05 00:02:00 No Notes: (Same As: Dulcolax, Bisco-Lax) [facility] Saline Flush 0.9% 2014 23:42:00 No Notes: (Same as: BD Posiflush) [facility] Vital Signs Vital Name Observation Time Observation Value Comments Source BMI Calculated 2017-03-02 19:34:00 Erlinda Rasmussen Weight 2017-03-02 19:34:00 [facility] Respitory Rate 2017-03-02 19:34:00 [facility] Heart Rate 2017-03-02 19:34:00 [facility] [place] Systolic (mm Hg) 2017-03-02 19:34:00 [facility] [place] Diastolic (mm Hg) 2017-03-02 19:34:00 [facility] [place] Temperature Oral (F) 2017-03-02 19:34:00 98.2 F [facility] Height 2017-03-02 19:34:00 172.72 cm [facility] Temperature Oral (F) 2014-11-06 12:46:00 97.6 F [facility] Heart Rate 2014-11-06 12:46:00 [facility] Systolic (mm Hg) 2014-11-06 12:46:00 [facility] Diastolic (mm Hg) 2014-11-06 12:46:00 [facility] [place] Respitory Rate 2014-11-06 12:46:00 [facility] [place] Systolic (mm Hg) 2014-11-06 09:05:00 [facility] [place] Diastolic (mm Hg) 2014-11-06 09:05:00 [facility] [place] Heart Rate 2014-11-06 09:05:00 [facility] [place] Respitory Rate 2014-11-06 09:05:00 [facility] [place] Temperature Oral (F) 2014-11-06 09:05:00 97.1 F [facility] Temperature Oral (F) 2014-11-06 04:38:00 98.6 F [facility] Heart Rate 2014-11-06 04:38:00 [facility] Respitory Rate 2014-11-06 04:38:00 [facility] [place] Systolic (mm Hg) 2014-11-06 04:38:00 [facility] Diastolic (mm Hg) 2014-11-06 04:38:00 [facility] [place] Height 2014-11-05 06:00:00 172.72 cm [facility] [place] BMI Calculated 2014-11-05 06:00:00 [facility] [place] Weight 2014-11-05 06:00:00 [facility] Weight 2014 23:31:00 [facility] Procedures Procedure Date / Time Performed Performing Clinician [facility] Cataract surgery 2013-03-27 00:00:00 [facility] Angiogram 2009-03-27 00:00:00 Rufina gunter Hernia repair [facility] Rotator cuff repair<sup>1</sup> Rufina [place] Encounters Start Date/Time End Date/Time Encounter Type Admission Type [facility] Care Department Encounter ID Source 2017-05-04 16:31:00 2017-05-05 23:59:59 Outpatient [facility] [id number] 2017-05-04 11:00:00 2017-05-04 11:00:00 Outpatient Willam Robledo [facility] [id number] 2017-05-04 11:00:00 2017-05-04 11:00:00 Outpatient Willam Robledo [facility] [id number] 2017-03-02 13:30:00 2017-03-02 23:59:59 Outpatient Willam Robledo [facility] [id number] 2016-12-08 11:55:00 2017-01-06 23:59:00 Outpatient [place] Robledo nicoleao [id number] 2016-11-08 12:00:00 2016-12-07 23:59:00 Outpatient [place] Robledo nicoleao [id number] 2016-10-05 12:50:00 2016-11-03 23:59:00 Outpatient [place] Robledo nicoleao [id number] 2016-07-22 11:00:00 2016-08-20 23:59:00 Outpatient [place] Robledo nicoleao [id number] 2016-06-22 09:20:00 2016-07-21 23:59:00 Outpatient MeenaMontana nicoleao [id number] 2014 18:23:00 2014-11-06 11:40:00 Outpatient Gregg Kothari [facility] [id number] Results Test Description Test Time Test Comments Results Result Comments Source [facility] 2019-11-30 16:39:00 [place] [address] Patient Name: KERLINE MORAN MR #: [id number] : 1945 Age/Sex: 74/M Req #: [id number] Adm Physician: Ordered by: AMBER GREY MD Report #: [id number] Location: [facility] Room/Bed: Procedure: [id number] HOPD/CXR [address] [facility] Exam Date: 11/30/19 Exam Time: 1637 REPORT STATUS: Signed EXAMINATION: CXR [address] [facility] INDICATION: fever COMPARISON: None FINDINGS: AP view TUBES and LINES: None. . LUNGS/PLEURA: Lungs are well inflated. There is no evidence of pneumonia or pulmonary edema.. There is no pleural effusion or pneumothorax. HEART AND MEDIASTINUM: The cardiomediastinal silhouette is unremarkable. BONES AND SOFT TISSUES: No acute osseous lesion. Soft tissues are unremarkable. UPPER ABDOMEN: No free air under the diaphragm. IMPRESSION: No acute thoracic abnormality. Signed by: Evgeny Avery MD on 11/30/2019 4:39 PM Dictated By: EVGENY AVERY MD [id number] Transcribed By: SUDHEER on 11/30/19 1639 COPY TO: AMBER GREY MD LIPIDS 2014-11-06 13:15:00 108 [facility] SPECIAL CHEMISTRY 2014-11-06 13:15:00 5.8 [facility] [place] ELECTROLYTES 2014-11-06 08:55:00 14.1 [facility] [place] ELECTROLYTES 2014-11-06 08:55:00 1.1 [facility] ELECTROLYTES 2014-11-06 08:55:00 57 [facility] [place] ELECTROLYTES 2014-11-06 08:55:00 26 [facility] [place] ELECTROLYTES 2014-11-06 08:55:00 55 [facility] [place] ELECTROLYTES 2014-11-06 08:55:00 4.0 [facility] [place] ELECTROLYTES 2014-11-06 08:55:00 4.1 [facility] [place] ELECTROLYTES 2014-11-06 08:55:00 8 [facility] ELECTROLYTES 2014-11-06 08:55:00 104 [facility] [place] ELECTROLYTES 2014-11-06 08:55:00 139 [facility] [place] ELECTROLYTES 2014-11-06 08:55:00 1.1 [facility] [place] ELECTROLYTES 2014-11-06 08:55:00 1.2 [facility] ELECTROLYTES 2014-11-06 08:55:00 7 [facility] [place] ELECTROLYTES 2014-11-06 08:55:00 3.2 [facility] [place] ELECTROLYTES 2014-11-06 08:55:00 27 [facility] [place] ELECTROLYTES 2014-11-06 08:55:00 102 [facility] [place] ELECTROLYTES 2014-11-06 08:55:00 7.2 [facility] [place] ELECTROLYTES 2014-11-06 08:55:00 8.9 [facility] ELECTROLYTES 2014-11-06 08:55:00 68 [facility] [place] CHEM PANEL 2014-11-05 08:17:00 76 [facility] CHEM PANEL 2014-11-05 08:17:00 8.7 [facility] [place] CHEM PANEL 2014-11-05 08:17:00 20 [facility] [place] CHEM PANEL 2014-11-05 08:17:00 16.7 [facility] CHEM PANEL 2014-11-05 08:17:00 1.0 [facility] [place] CHEM PANEL 2014-11-05 08:17:00 137 [facility] [place] CHEM PANEL 2014-11-05 08:17:00 6 [facility] CHEM PANEL 2014-11-05 08:17:00 7.6 [facility] [place] CHEM PANEL 2014-11-05 08:17:00 4.1 [facility] CHEM PANEL 2014-11-05 08:17:00 111 [facility] [place] CHEM PANEL 2014-11-05 08:17:00 6 [facility] [place] CHEM PANEL 2014-11-05 08:17:00 3.7 [facility] [place] CHEM PANEL 2014-11-05 08:17:00 104 [facility] [place] CHEM PANEL 2014-11-05 08:17:00 44 [facility] [place] CHEM PANEL 2014-11-05 08:17:00 53 [facility] [place] CHEM PANEL 2014-11-05 08:17:00 0.9 [facility] [place] CHEM PANEL 2014-11-05 08:17:00 31 [facility] [place] CHEM PANEL 2014-11-05 08:17:00 3.5 [facility] [place] CHEM PANEL 2014-11-05 08:17:00 1.2 [facility] [place] [facility]EL 2014-11-05 08[facility]17[facility] 2014-11-05 08:17[facility] 2014-11-05 08:17:00 Test Item PT (test code = PT) 21.6 s 12.0-14.7 [facility] FdgzskdKPDHSEGJLI3714-01-59 08:17:00* Test Item Value Reference Range Interpretation Comments PTT (test code = PTT) 37.1 s 22.9-35.8 [facility] NgwemqxHJNNWIUVOF7420-69-60 08:17:0042.6[facility]ann[facility]MATOLOGY 2014-11-05 08:17:004.32[facility] YgyzdiqWNCFWWWVXM2617-30-98 08:17:0011.5[facility] XbikwetJLWPBSSEDS5339-90-50 08:17:0014.1[facility] EvcfgmqKSIUJUWKHI1674-28-30 08:17:0013.0[facility] GlglehfMRBQSHRIIM8855-76-12 08:17:007.6[facility] HZOPVYURFB6399-72-32 08:17:06361Depfmkvi QoehixsGGIBVFRQHD4717-61-11 08:17:00 33.1[facility] UldvfbyXOGOOMHBQP5008-90-45 08:17:00* Test Item Value Reference Range Interpretation Comments MCH (test code = MCH) 32.6 pg 27.0-31.0 [facility] DvbzspjSCRSYWFVYX1096-50-10 08:17:0098.6[facility] HermannHEMATOLOGY 2014-11-05 08:17:003[facility] ViuolkdQUTDKSBBJI9042-75-37 08:17:001.1[facility] YqjpxjtCCICUWHYXT6100-10-62 08:17:001.3[facility] BzvxxzbKLAJVQUOHV4896-44-48 08:17:009.1[facility] DwrggteRFKSVDGDWG7506-57-15 08:17:0011.0[facility] SYVUCZUWTO0444-29-57 08:17:0079.2[facility] WlpbyhaZEIFJDBLNQ0236-03-88 08:17:00 0.2[facility] FesnsxvVNEEYHJQUU3967-22-23 08:17:000.3[facility]annHEMATOLOGY 2014-11-05 08:17:009.3[facility] QtmfudoHLVHPW7467-25-27 06:25:53765Aqbdcvld GmjagmtORZFAM2203-77-28 06:25:0026[facility] RcddidfEJYEHO3412-44-57 06:25:0072 [facility] XxyjypiOBGYZZ7678-97-47 06:25:002.85[facility] MiqdxooOOPTGY4671-56-78 06:25:51680Bvienvkr YykcyceAZKNLD1240-59-74 06:25:37224Qgjjhgus HermannDRUG HUMNTU6793-19-37 02:27:00Negative *NA*(11/04/14 9:27 PM)[facility]ann[facility] SFHEUH0619-39-31 02:27:00Negative *NA*(11/04/14 9:27 PM)[facility]ann[facility] SBROQC0283-86-12 02:27:00Negative *NA*(11/04/14 9:27 PM)[facility]ann[facility] SUYDOC9774-57-26 02:27:00See Note (11/04/14 9:27 PM)[facility]ann[facility] SCREEN 2014-11-05 02:27:00Positive *ABN*(11/04/14 9:27 PM)[facility]ann[facility] SCREEN 2014-11-05 02:27:00Negative *NA*(11/04/14 9:27 PM)[facility]ann[facility] SCREEN 2014-11-05 02:27:00Negative *NA*(11/04/14 9:27 PM)[facility]ann[facility] SCREEN 2014-11-05 02:27:00Negative *NA*(11/04/14 9:27 PM)[facility]ann[facility]INE AND STOOL 2014-11-05 02:27:000.2[facility]ann[facility] AND SZLHF0479-29-96 02:27:00Negative (11/04/14 9:27 PM)[facility] AFOKT2255-70-74 02:27:00Negative (11/04/14 9:27 PM)[facility] XBRHD9273-97-84 02:27:001[facility]ann[facility] AND DTYGE8170-90-77 02:27:00Yellow *NA*(11/04/14 9:27 PM)[facility] NLWZC5718-63-58 02:27:00* Test Item Value Reference Range Interpretation Comments UA pH (test code = UA pH) 6.0 1 5.0-8.0 [facility] [id number] 02:27:00* Test Item Value Reference Range Interpretation Comments UA Spec Grav (test code = UA Spec Grav) 1.010 1 [facility] WFRLB9294-71-73 02:27:00Clear (11/04/14 9:27 PM) [facility] SIQHE0162-37-90 02:27:00Negative *NA*(11/04/14 9:27 PM) [facility] WVDFU6980-24-29 02:27:00Large *ABN*(11/04/14 9:27 PM) [facility] MLRHQ8251-43-84 02:27:00Negative *NA*(11/04/14 9:27 PM) [facility] RKEMD1567-82-89 02:27:00Negative (11/04/14 9:27 PM) [facility]annCHEM PZOGF4052-74-18 00:01:0076[facility] HermannCHEM PANEL 2014-11-05 00:01:001.0[facility] HermannCARDIAC NLKKPDY0943-63-73 23:50:001.1 [facility]annCARDIAC TJWHYBU4563-17-27 23:50:003.2[facility] HermannCARDIAC PQSZGUK5217-88-06 23:50:97416Lxrmcycm HermannCARDIAC JFYWXQE3196-05-63 23:50:00< 0.02[facility] DpfmthtYPHQLQKUZCOI5763-33-96 23:50:0022.1[facility] VFYRGCXOZXIM7878-62-56 23:50:004.1[facility] BegaudwETNPJGSCRLNL1188-09-98 23:50:009.2[facility] OnzbthbKWDZIVKPEHNK9612-85-37 23:50:33112Pseppbiy [facility] GUYBWZYWFCMU3425-78-13 23:50:0016[facility] KggrirsRKCAOIHLVYTE3129-18-40 23:50:00 207[facility] NeqnwueANLXORFVUVCH0366-86-54 23:50:007[facility] HermannELECTROLYTES 2014 23:50:001.3[facility] RmdkazePTBAAHHYAHUB7094-25-80 23:50:18321Iiefqjmv LtetkotOOBIVLJHWM6617-04-06 23:50:000.3[facility] IwvrntpAHCCAFPGUR3072-13-32 23:50:003.7[facility] YiexqekYQHPTOIYJP9792-98-14 23:50:000.2[facility] [place] DZSLFSHAWY5604-44-32 23:50:0012.5[facility] KmwbmxtELSRMFHDHB2551-95-10 23:50:00 5.7[facility] EgxojwgJNXKHFWCMG8073-92-11 23:50:001+ *ABN*(11/04/14 6:50 PM) [facility] NrdhwldAIFFHRVZQD2584-41-49 23:50:000.5[facility] HermannHEMATOLOGY 2014 23:50:000.8[facility] YlqjryqYCWSVOTLWF7906-22-81 23:50:0090.1[facility] JzsibnrDRAOKODZAA3965-05-62 23:50:00* Test Item Value Reference Range Interpretation Comments PTT (test code = PTT) 23.5 s 22.9-35.8 [facility] VipnegoORAYIDAGBL4294-88-31 23:50:001.24[facility] HermannHEMATOLOGY 2014 23:50:00* Test Item Value Reference Range Interpretation Comments PT (test code = PT) 15.7 s 12.0-14.7 [facility] CiesmzwJRGZRUNTSH0481-44-56 23:50:0043.1[facility] HermannHEMATOLOGY 2014 23:50:62937.2[facility] TesdzqgJPPXNFRKDQ1251-43-21 23:50:007.4[facility] MmytapoGZDBDGJDOL6055-00-77 23:50:16124Lwkjjeyj HkrzmxqRKWZQVHGFO8809-12-66 23:50:0013.9[facility] SnkulcmCHOWFLDTKC4800-77-35 23:50:00* Test Item Value Reference Range Interpretation Comments MCH (test code = MCH) 32.8 pg 27.0-31.0 [facility] XsdumzhTHFGSNRUOK0789-70-72 23:50:0032.8[facility] HermannHEMATOLOGY 2014 23:50:0013.1[facility] FehhaplFNJGNFPMGA2834-62-40 23:50:004.30[facility] QyhixvpLSIJCQHJLK4077-97-54 23:50:0014.1[facility]
--- OUTSIDE RECORDS SUMMARY | 2019-11-30 18:28 | XMS REPORT | Continuity of Care Document ---
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 STROKE LEFT SIDE Active 03/27/2016 [facility] LEFT LEG WEAKNESS Active 03/27/2016 [facility] CVA Active 0 09/17/2015 [facility] LEFT LEG/STROKE Active 08/13/2015 [facility] STROKE Active 2014 [facility] LIFE FLIGHT Active 2014 [facility] Foot-drop (finding) Active Problem 08/11/2017 [facility] Gout (disorder) Active Problem 08/11/2017 [facility] History of cerebrovascular accident with residual deficit (situation) Active Prob mandy 08/11/2017 [facility] Hypertensive disorder, systemic arterial (disorder) [facility] fasting glycaemia (disorder) Active Problem [facility] Left hemiplegia (disorder) Act brandon [facility] Mixed hyperlipidemia (disorder) Active Problem [facility] Recurrent major depressive episodes, mod erate (disorder) Active Prob mandy [facility]2017 [facility] Shoulder pain (finding) Active Problem 08/11/2017 [facility] CVA Active [facility] STROKE LT SIDE Active [facility] Pa sadena Medications Medication Details Route Status Patient Instructions Ordering Provider Order Date Source Triamcinolone Acetonide 1 MG/ML Topical Cream See Instructions, APPLY EXTERNALLY TO THE AFFECTED AREA DAILY NEEDED, # 60 gm, 1 Refill(s), Pharmacy: [facility] [id number] Active 05/05/2017 [facility] Lisinopril 10 mg, Route: PO, D rug form: TAB, Daily, Dosing Weight 78.239, kg, Start date: 11/06/14 9:00:00, Duration: 30 day, Stop date: 12/05/14 9:00:00 No Longer Active 11/06/2014 [facility] losartan 25 mg oral tablet 25 mg = 1 tab, PO, Daily, # 90 tab, 0 Refill(s) Active 11/06/2014 [facility] lisinopril 20 mg oral tablet 2 0 mg, PO, Daily, # 90 tab, 2 Refill(s) Inactive 11/06/2014 [facility] Aspirin 81 MG Enteric Coated Tablet 81 mg = 1 tab, PO, Daily, # 30 tab, 0 Refill(s) Active 11/06/2014 [facility] lisinopril 10 mg oral tablet 1 0 mg = 1 tab, PO, Daily, # 30 tab, 0 Refill(s) Inactive 11/06/2014 [facility] atorvastatin 80 mg oral tablet 80 mg = 1 tab, PO, Bedtime, # 30 tab, 0 Refill(s) Active 11/06/2014 [facility] atorvastatin 80 mg, Route: PO, Drug form: TAB, Bedtime, Dosing Weight 78.239, kg, Start date: 11/05/14 21:00:00, Duration: 30 day, Stop date: 12/04/14 21:00:00 Inactive 11/06/2014 [facility] heparin Notes: porcine heparin No Longer Active 11/05/2014 [facility] Aspirin Notes: Do not crush or chew. (Same As: Ecotrin) No Longer Active 11/05/2014 [facility] Zyloprim Notes: (Same as: Zylo prim) No Longer Active 11/05/2014 [facility] Allopurinol Notes: (Same as: Z yloprim) Inactive 11/05/2014 [facility] Lisinopril Notes: (Same as: Pr inivil, Zestril) No Longer Active 11/05/2014 [facility] lansoprazole 30 mg, Route: NG, Drug form: SUSP, Daily, Dosing Weight 79.091, kg, Start date: 11/05/14 9:00:00, Duration: 30 day, Stop date: 12/04/14 9:00:00 No Longer Active 11/05/2014 [facility] pantoprazole 40 mg, Route: IVP , Drug form: INJ, Daily, Dosing Weight 79.091, kg, Start date: 11/05/14 9:00:00, Duration: 30 day, Stop date: 12/04/14 9:00:00 Inactiv e 11/05/2014 [facility] Folic Acid Notes: (Same as: Fo lvite) No Longer Active 11/05/2014 [facility] Thiamine Notes: (Same As: Mechelle min B1) No Longer Active 11/05/2014 [facility] multivitamin Notes: (Same as:T marcus) Take with food. No Longer Active 11/05/2014 [facility] Famotidine Notes: (Same as: Pe pcid) No Longer Active 11/05/2014 [facility] Docusate 100 mg, 1 cap, Route: PO, Drug form: CAP, Q12H, Dosing Weight 79.091, kg, Start date: 11/04/14 21:00:00, Duration: 30 day, Stop date: 12/04/14 9:00:00 No Longer Active 11/05/2014 [facility] Lipitor Notes: Same as Lipitor No Longer Active 11/05/2014 [facility] allopurinol 300 mg oral tablet 300 mg = 1 tab, PO, Daily, 0 Refill(s) Active 11/05/2014 [facility] Regular Insulin, Human 100 UNT/ML Injectable Solution 60 units) Stable for 28 days at room temperature Expires in days from Date No Longer Active 11/05/2014 [facility] Dextrose 50% Syringe 25 gm, 50 mL, Route: IVP, Drug Form: INJ, Dosing Weight 79.091, kg, PRN, PRN Abnormal Lab Result, Start date: 11/04/14 19:36:00, Duration: 30 day, Stop date: 12/04/14 19:35:00 No Longer Active 11/05/2014 [facility] iodixanol Special Instructions : Dose = 2.2ml/kg, Max dose = 150ml -- "To be infused by Radiology Staff ONLY" Inactive 11/05/2014 [facility] enalapril Notes: (Same as: Vas otec-IV) No Longer Active 11/05/2014 [facility] Labetalol 105 mmHg, Priority: Routine, Start date: 11/04/14 19:02:00, Duration: 3 doses or times, Stop date: Limited # of times No Longer Active 11/05/2014 [facility] Acetaminophen Notes: Do not ex ceed 4 gm/day. (Same as: Tylenol) No Longer Active 11/05/2014 [facility] Bisacodyl Notes: (Same As: Dul colax, Bisco-Lax) No Longer Active 11/05/2014 [facility] Saline Flush 0.9% Notes: (Same as: BD Posiflush) No Longer Active 2014 [facility] Allergies, Adverse Reactions, Alerts Substance Category Reaction Severity Reaction type Status Date Reported Comments Source REINA Inhibitors Assertion Drug allergy Active [facility] Immunizations Immunization Date Given Site Status Last Updated Comments Source influenza virus vaccine, inactivated<sup>1</sup> 11/17/2016 Right Deltoid completed Mikey Result Comment: patient waited 15 min with no reaction [facility] Hx influenza vaccine-unspecified 01/26/2016 completed C freeman [facility] Hx pneumococcal vaccine 2014 completed C freeman [facility] Results Order Name Results Value Reference Range Date Interpretation Comments Source LIPIDS LDL Direct 108 <=99 mg/dL 11/06/2014 [facility] SPECIAL CHEMISTRY Hgb A1C 5.8 <=5.6 % 11/06/2014 [facility] ELECTROLYTES AGAP 14.1 10.0 - 20.0 11/06/2014 [facility] ELECTROLYTES Bili Total 1.1 0.2 - 1.3 11/06/2014 [facility] ELECTROLYTES AST 57 0 - 37 11/06/2014 [facility] ELECTROLYTES ALT 26 0 - 65 11/06/2014 [facility] ELECTROLYTES Alk Phos 55 39 - 136 11/06/2014 [facility] ELECTROLYTES Albumin Lvl 4.0 3.5 - 5.0 11/06/2014 [facility] ELECTROLYTES Potassium Lvl 4.1 3.5 - 5.1 11/06/2014 [facility] ELECTROLYTES BUN 8 7 - 22 11/06/2014 [facility] ELECTROLYTES Glucose Lvl 104 70 - 99 11/06/2014 [facility] ELECTROLYTES Sodium Lvl 139 135 - 145 11/06/2014 [facility] ELECTROLYTES Creatinine Lvl 1.1 0.5 - 1.4 11/06/2014 [facility] ELECTROLYTES A/G Ratio 1.2 0.7 - 1.6 11/06/2014 [facility] ELECTROLYTES B/C Ratio 7 6 - 25 11/06/2014 [facility] ELECTROLYTES Globulin 3.2 2.0 - 4.0 11/06/2014 [facility] ELECTROLYTES CO2 27 24 - 32 11/06/2014 [facility] ELECTROLYTES Chloride Lvl 102 95 - 109 11/06/2014 [facility] ELECTROLYTES Total Protein 7.2 6.4 - 8.4 11/06/2014 [facility] ELECTROLYTES Calcium Lvl 8.9 8.5 - 10.5 11/06/2014 [facility] ELECTROLYTES eGFR 68 11/06/2014 Result Comment: The [...] should be multiplied by the estimated BMI. [facility] CHEM PANEL eGFR 76 11/05/2014 Result Comment: [...] should be multiplied by the estimated BMI. [facility] CHEM PANEL Calcium Lvl 8.7 8.5 - 10.5 11/05/2014 [facility] CHEM PANEL CO2 20 24 - 32 11/05/2014 [facility] CHEM PANEL AGAP 16.7 10.0 - 20.0 11/05/2014 [facility] CHEM PANEL Creatinine Lvl 1.0 0.5 - 1.4 11/05/2014 [facility] CHEM PANEL Sodium Lvl 137 135 - 145 11/05/2014 [facility] CHEM PANEL B/C Ratio 6 6 - 25 11/05/2014 [facility] CHEM PANEL Total Protein 7.6 6.4 - 8.4 11/05/2014 [facility] CHEM PANEL Albumin Lvl 4.1 3.5 - 5.0 11/05/2014 [facility] CHEM PANEL Glucose Lvl 111 70 - 99 11/05/2014 [facility] CHEM PANEL BUN 6 7 - 22 11/05/2014 [facility] CHEM PANEL Potassium Lvl 3.7 3.5 - 5.1 11/05/2014 [facility] CHEM PANEL Chloride Lvl 104 95 - 109 11/05/2014 [facility] CHEM PANEL AST 44 0 - 37 11/05/2014 [facility] CHEM PANEL Alk Phos 53 39 - 136 11/05/2014 [facility] CHEM PANEL Bili Total 0.9 0.2 - 1.3 11/05/2014 [facility] CHEM PANEL ALT 31 0 - 65 11/05/2014 [facility] CHEM PANEL Globulin 3.5 2.0 - 4.0 11/05/2014 [facility] CHEM PANEL A/G Ratio 1.2 0.7 - 1.6 11/05/2014 [facility] CHEM PANEL Bili Direct 0.2 0.0 - 0.3 11/05/2014 [facility] HEMATOLOGY INR 1.83 0.85 - 1.17 11/05/2014 [facility] HEMATOLOGY PT 21.6 12.0 - 14.7 11/05/2014 [facility] HEMATOLOGY PTT 37.1 22.9 - 35.8 11/05/2014 [facility] HEMATOLOGY Hct 42.6 42.0 - 54.0 11/05/2014 [facility] HEMATOLOGY RBC 4.32 4.70 - 6.10 11/05/2014 [facility] HEMATOLOGY WBC 11.5 3.7 - 10.4 11/05/2014 [facility] HEMATOLOGY Hgb 14.1 14.0 - 18.0 11/05/2014 [facility] HEMATOLOGY RDW 13.0 11.5 - 14.5 11/05/2014 [facility] HEMATOLOGY MPV 7.6 7.4 - 10.4 11/05/2014 [facility] HEMATOLOGY Platelet 255 133 - 450 11/05/2014 [facility] HEMATOLOGY MCHC 33.1 32.0 - 36.0 11/05/2014 [facility] HEMATOLOGY MCH 32.6 27.0 - 31.0 11/05/2014 [facility] HEMATOLOGY MCV 98.6 80.0 - 94.0 11/05/2014 [facility] HEMATOLOGY Sed Rate 3 0 - 15 11/05/2014 [facility] HEMATOLOGY Monocytes # 1.1 0.0 - 0.8 11/05/2014 [facility] HEMATOLOGY Lymphocytes # 1.3 1.0 - 5.5 11/05/2014 [facility] HEMATOLOGY Segs-Bands # 9.1 1.5 - 8.1 11/05/2014 [facility] HEMATOLOGY Lymphocytes 11.0 20.0 - 40.0 11/05/2014 [facility] HEMATOLOGY Segs 79.2 45.0 - 75.0 11/05/2014 [facility] HEMATOLOGY Eosinophils 0.2 0.0 - 4.0 11/05/2014 [facility] HEMATOLOGY Basophils 0.3 0.0 - 1.0 11/05/2014 [facility] HEMATOLOGY Monocytes 9.3 2.0 - 12.0 11/05/2014 [facility] LIPIDS LDL (Calculated) 107 <=99 mg/dL 11/05/2014 [facility] LIPIDS VLDL 26 11/05/2014 [facility] LIPIDS HDL 72 >=61 mg/dL 11/05/2014 [facility] LIPIDS CHD Risk 2.85 4.00 - 7.30 11/05/2014 [facility] LIPIDS Chol 205 <=199 mg/dL 11/05/2014 [facility] LIPIDS Trig 132 <=149 mg/dL 11/05/2014 [facility] DRUG SCREEN U Cannab Scr Nega tive *NA* (11/04/14 9:27 PM) Negative 11/05/2014 [facility] DRUG SCREEN U Opiate Scr Nega tive *NA* (11/04/14 9:27 PM) Negative 11/05/2014 [facility] DRUG SCREEN U Phencyc Scr Nega tive *NA* (11/04/14 9:27 PM) Negative 11/05/2014 [facility] DRUG SCREEN UDS Note See Note (11/04/14 9:27 PM) 11/05/2014 [facility] DRUG SCREEN U Benzodia Scr Posi tive *ABN* (11/04/14 9:27 PM) Negative 11/05/2014 [facility] DRUG SCREEN U Cocaine Scr Nega tive *NA* (11/04/14 9:27 PM) Negative 11/05/2014 [facility] DRUG SCREEN U Amph Scr Nega tive *NA* (11/04/14 9:27 PM) Negative 11/05/2014 [facility] DRUG SCREEN U Ana Scr Nega tive *NA* (11/04/14 9:27 PM) Negative 11/05/2014 [facility] URINE AND STOOL UA Bacteria Rare 11/05/2014 [facility] URINE AND STOOL UA RBC 6-10 /HPF 0 - 2 11/05/2014 [facility] URINE AND STOOL UA Urobilinogen 0.2 0.1 - 1.0 11/05/2014 [facility] URINE AND STOOL UA Nitrite Negative (11/04/14 9:27 PM) Negative 11/05/2014 [facility] URINE AND STOOL UA Leuk Est Negative (11/04/14 9:27 PM) Negative 11/05/2014 [facility] URINE AND STOOL UA WBC 1 11/05/2014 [facility] URINE AND STOOL UA Sq Epi Rare /LPF Few /LPF 11/05/2014 [facility] URINE AND STOOL UA Color Yellow *NA* (11/04/14 9:27 PM) Yellow 11/05/2014 [facility] URINE AND STOOL UA Protein 100 mg/dL Negative mg/dL 11/05/2014 [facility] URINE AND STOOL UA pH 6.0 5.0 - 8.0 11/05/2014 [facility] URINE AND STOOL UA Spec Grav 1.010 <=1.030 11/05/2014 [facility] URINE AND STOOL UA Turbidity Clear (11/04/14 9:27 PM) Clear 11/05/2014 [facility] URINE AND STOOL UA Ketones Negative *NA* (11/04/14 9:27 PM) Negative 11/05/2014 [facility] URINE AND STOOL UA Blood Large *ABN* (11/04/14 9:27 PM) Negative 11/05/2014 [facility] URINE AND STOOL UA Bili Negative *NA* (11/04/14 9:27 PM) Negative 11/05/2014 [facility] URINE AND STOOL UA Glucose Negative (11/04/14 9:27 PM) Negative 11/05/2014 [facility] CHEM PANEL eGFR 76 11/05/2014 Result Comment: [...] should be multiplied by the estimated BMI. [facility] CHEM PANEL POC Creatinine 1.0 0.5 - 1.4 11/05/2014 [facility] CARDIAC ENZYMES CK MB Index 1.1 0.0 - 2.5 2014 [facility] CARDIAC ENZYMES CK MB 3.2 0.5 - 3.6 2014 [facility] CARDIAC ENZYMES Total CK 299 12 - 191 2014 [facility] CARDIAC ENZYMES Troponin-I <0.02 0.00 - 0.40 2014 [facility] ELECTROLYTES AGAP 22.1 10.0 - 20.0 2014 [facility] ELECTROLYTES Potassium Lvl 4.1 3.5 - 5.1 2014 [facility] ELECTROLYTES Calcium Lvl 9.2 8.5 - 10.5 2014 [facility] ELECTROLYTES Chloride Lvl 100 95 - 109 2014 [facility] ELECTROLYTES CO2 16 24 - 32 2014 [facility] ELECTROLYTES Glucose Lvl 207 70 - 99 2014 [facility] ELECTROLYTES BUN 7 7 - 22 2014 [facility] ELECTROLYTES Creatinine Lvl 1.3 0.5 - 1.4 2014 [facility] ELECTROLYTES Sodium Lvl 134 135 - 145 2014 [facility] HEMATOLOGY Eosinophils 0.3 0.0 - 4.0 2014 [facility] HEMATOLOGY Monocytes 3.7 2.0 - 12.0 2014 [facility] HEMATOLOGY Basophils 0.2 0.0 - 1.0 2014 [facility] HEMATOLOGY Segs-Bands # 12.5 1.5 - 8.1 2014 [facility] HEMATOLOGY Lymphocytes 5.7 20.0 - 40.0 2014 [facility] HEMATOLOGY Macrocyte 1+ *ABN* (11/04/14 6:50 PM) None Seen 2014 [facility] HEMATOLOGY Monocytes # 0.5 0.0 - 0.8 2014 [facility] HEMATOLOGY Lymphocytes # 0.8 1.0 - 5.5 2014 [facility] HEMATOLOGY Segs 90.1 45.0 - 75.0 2014 [facility] HEMATOLOGY PTT 23.5 22.9 - 35.8 2014 [facility] HEMATOLOGY INR 1.24 0.85 - 1.17 2014 [facility] HEMATOLOGY PT 15.7 12.0 - 14.7 2014 [facility] HEMATOLOGY Hct 43.1 42.0 - 54.0 2014 [facility] HEMATOLOGY MCV 100.2 80.0 - 94.0 2014 [facility] HEMATOLOGY MPV 7.4 7.4 - 10.4 2014 [facility] HEMATOLOGY Platelet 268 133 - 450 2014 [facility] HEMATOLOGY WBC 13.9 3.7 - 10.4 2014 [facility] HEMATOLOGY MCH 32.8 27.0 - 31.0 2014 [facility] HEMATOLOGY MCHC 32.8 32.0 - 36.0 2014 [facility] HEMATOLOGY RDW 13.1 11.5 - 14.5 2014 [facility] HEMATOLOGY RBC 4.30 4.70 - 6.10 2014 [facility] HEMATOLOGY Hgb 14.1 14.0 - 18.0 2014 [facility] Pathology Reports No Data Provided for This [...] examination of the brain is unchanged. 11/05/2014 [facility] Brain wo contrast CT EXAM: CT of [...] No early signs of brain ischemia. 11/05/2014 [facility] Brain wo contrast MRI EXAM: MR I BRAIN WITHOUT CONTRAST DATE: Nov 05, 2014 12:10:00 AM INDICATION: Acute cognitive change TECHNIQUE: Multiplanar multisequence MRI images of the head were obtained without intravenous contrast administration. COMPARISON: CT angiogram the head and neck dated 2014 FINDINGS: Diffusion-weighted images do not demonstrate any evidence of ischemic change. 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 Creator:Ariana Connelly Date:Nov 05, 2014 01:36:56 Subject: No evidence of recent ischemia. 2014 [facility] Chest 1view DX EXAM: XR CHEST 1 [...] subsegmental atelectasis, otherwise no acute abnormality. 2014 [facility] Brain/Neck Stroke perfusion CTA CT ANGIOGRAM OF THE HEAD AND NECK AND CT PERFUSION DATE: 2014 at 7:07 p.m. Comparison studies: Outside imaging from [facility] stroke team 2014 at 5:55 p.m. [...] Dr. Morales EC, @ 1940 hours. 2014 [facility] Consultation Notes No Data Provided for This Section Discharge Summaries No Data Provided for This Section History and Physicals No Data Provided for This Section Vital Signs Vital Sign Value Date Comments Source BMI Calculated 20.57 03/02/2017 Medical [facility] Weight 61.364 03/02/2017 [facility] Respitory Rate 16 03/02/2017 [facility] Heart Rate 65 03/02/2017 [facility] Systolic (mm Hg) 114 03/02/2017 [facility] Diastolic (mm Hg) 68 03/02/2017 [facility] Temperature Oral (F) 98.2 F 03/02/2017 [facility] Height 172.72 cm 03/02/2017 [facility] Temperature Oral (F) 97.6 F 11/06/2014 [facility] Heart Rate 72 11/06/2014 [facility] Systolic (mm Hg) 143 11/06/2014 [facility] Diastolic (mm Hg) 75 11/06/2014 [facility] Respitory Rate 18 11/06/2014 [facility] Systolic (mm Hg) 147 11/06/2014 [facility] Diastolic (mm Hg) 83 11/06/2014 [facility] Heart Rate 68 11/06/2014 [facility] Respitory Rate 18 11/06/2014 [facility] Temperature Oral (F) 97.1 F 11/06/2014 [facility] Temperature Oral (F) 98.6 F 11/06/2014 [facility] Heart Rate 57 11/06/2014 [facility] Respitory Rate 17 11/06/2014 [facility] Systolic (mm Hg) 153 11/06/2014 [facility] Diastolic (mm Hg) 82 11/06/2014 [facility] Height 172.72 cm 11/05/2014 [facility] BMI Calculated 26.23 11/05/2014 [facility] Weight 78.239 11/05/2014 [facility] Weight 79.091 2014 [facility] Encounters Location Location Details Encounter Type Encounter Number Reason For Visit Attending Provider ADM Date DC Date Status Source [facility] Inpatient [id number] BaljitNichelle Taye 2014 11/06/2014 [facility] Outpatient [id number] WILLAM PETERSON 06/07/2016 Active [facility] Patients [id number] Albinoihao Nicholas 06/22/2016 07/22/2016 [facility] Outpatient [id number] ALBINOIHAO NICHOLAS 07/14/2016 Active [facility] OP Therapy Patients [id number] Albinoihao Nicholas 07/22/2016 08/21/2016 [facility] Outpatient [id number] WILLAM PETERSON 08/09/2016 Active [facility] Outpatient [id number] WILLAM PETERSON 09/08/2016 Active [facility] OP Therapy Patients [id number] Zhihao Nicholas 10/05/2016 [facility] [id number] Albinoihao Nicholas 11/08/2016 12/08/2016 [facility] Outpatient [id number] ALBINOIHAO NICHOLAS 11/17/2016 Active [facility] OP Therapy Patients [id number] Albinoihao Nicholas 12/08/2016 01/07/2017 [facility] Outpatient [id number] ALBINOIHAO NICHOLAS 01/31/2017 Active [facility] Outpatient [id number] ALBINOIHAO NICHOLAS 03/02/2017 Active [facility] Outpatient [id number] Albinoihjina Peterson 03/02/2017 03/03/2017 [facility] Outpatient [id number] WILLAM PETERSON 05/04/2017 Active [facility] Ambulatory Pre-Reg [id number] Willam Peterson 05/04/2017 05/04/2017 [facility] Phone Message [id number] 05/04/2017 05/06/2017 [facility] Procedures Procedure Code Date Perfomer Comments Source Cataract surgery [id number] 03/27/2013 [facility] ,[facility] Angiogram [id number] 03/27/2009 [facility] Hernia repair [id number] [facility] Rotator cuff repair<sup>1</sup> [id number] aliviadamon tavarezsuzie benavides [facility] ,[facility] Assessment and Plan Assessment and Plan Date [...] LDL > 100, normalize BP, d/c home [facility] stroke clinic follow up I spent [...] of care and prognosis Other Diagnosis: Code: [id number] LindyLeslieNichelle (Todd) MD Taye [facility] Pager: [phone] Extracted from:Title: Clinical Document Author: Christine Leonard [...] fluent, comprehension compromised, repetition preserved, naming preserved production 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 [facility] #[phone] PCP in 1 week Discharge Instructions: The patient received stroke education regarding signs and symptoms of stroke. They were instructed to call 911 if similar symptoms occurred again. The list of their medications on discharged was reviewed with the patient and all questions were answered. Mention critical home meds such as ASA, Statin. No PT/OT/Speech Therapy needs. 11/06/2014 [facility] Plan of Care No Data Provided for [...] No; Reg Smoking Cessation Counseling No 09/08/2016 [facility] Social History TypeResponse Substance Abuse Use: None. [...] No; Reg Smoking Cessation Counseling No 11/05/2014 [facility] Family History No Data Provided for This Section Advance Directives No Data Provided for This Section Functional Status No Data Provided for This Section
--- OUTSIDE RECORDS SUMMARY | 2019-11-30 18:29 | XMS REPORT | Continuity of Care Document ---
Author Author [facility] Organization [facility] Address [address] [place] [address] Phone Unavailable Care Team Providers Care Insurance Office Manager Name Role Phone Riaz GREY Attphys Unavailable Willam Robledo Attphys Gregg Kothari Attphys Gregg Kothari Admphys Problems Condition Name Condition Details Condition Category Status Onset Date Resolution Date Last Treatment Date Treating Clinician Comments Source G81.94 G81. 94 Active 10/05/2016 [facility] [place] Diagnosis Active 2016-10-05 08:00:00 2016-12-08 11:57:00 [facility] STROKE, LT SIDE STRO KE, LT SIDE Active 06/22/2016 [facility] [place] Diagnosis Active 2016-06-22 07:00:00 2016-07-29 10:43:00 [facility] [place] STROKE LEFT SIDE STRO KE LEFT SIDE Active 03/27/2016 [facility] [place] Diagnosis Active 2016-03-27 08:00:00 2016-09-29 16:38:00 [facility] LEFT LEG WEAKNESS LEFT LEG WEAKNESS Active 03/27/2016 [facility] [place] Diagnosis Active 2016-03-27 08:00:00 2016-10-05 12:53:00 [facility] [place] CVA CVA Active 09/17/2015 [facility] Diagnosis Act brandon 2015-09-17 00:00:00 2016-06-14 23:12:00 [facility] [place] LEFT LEG/STROKE LEFT LEG/STROKE Active 08/13/2015 [facility] [place] Diagnosis Active 2015-08-13 08:00:00 2016-11-08 12:03:00 [facility] STROKE STRO KE Active 2014 [facility] Diagnosis Active 2014 00:00:00 2014-11-06 08:21:00 Rufina Hopkins LIFE FLIGHT LIFE FLIGHT Active 2014 [facility] Diagnosis Active 2014 00:00:00 2014-11-14 10:05:00 Rufina Hopkins Foot-drop (finding) Foot -drop (finding) Active Problem 08/11/2017 [facility] [place] Problem Active 2017-08-11 14:16:14 Rufina Hopkins Gout (disorder) Gout (disorder) Active Problem 08/11/2017 [facility] [place] Problem Active 2017-08-11 14:16:14 Al Hopkins History of cerebrovascular accident with residual defi cit (situation) History of cerebrovascular accident with residual deficit (situation) Active Problem 08/11/2017 [facility] [place] Problem Active 2017-08-11 14:16:14 Al Hopkins Hypertensive disorder, systemic arterial (disorder) Hypertensive disorder, systemic arterial (disorder) Active Problem [facility]11[facility] [place] [facility] Active 2017-08-11 14:16:14 Rufina Hopkins 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) Active Problem 08/11/2017 [facility] [place] Problem Active 2017-08-11 14:16:14 Rufina Hopkins Left hemiplegia (disorder) Lef t hemiplegia (disorder) Active Problem 08/11/2017 [facility] [place] Problem Active 2017-08-11 14:16:14 Rufina Hopkins Mixed hyperlipidemia (disorder) Mixed hyperlipidemia (disorder) Active Problem 08/11/2017 [facility] [place] Problem Active 2017-08-11 14:16:14 Al Hopkins Recurrent major depressive episodes, moderate (disorde r) Recurrent major depressive episodes, moderate (disorder) Active Problem 08/11/2017 [facility] [place] Problem Active 2017-08-11 14:16:14 Rufina Hopkins Shoulder pain (finding) Shou lder pain (finding) Active Problem 08/11/2017 [facility] [place] Problem Active 2017-08-11 14:16:14 Rufina Hopkins CVA CVA Active [facility] Diagnosis Active 2014-11-06 08:21:00 [facility] [place] STROKE LT SIDE STRO KE LT SIDE Active [facility] [place] Diagnosis Active 2016-07-24 16 :17:00 [facility] [place] Allergies, Adverse Reactions, Alerts Allergy Name Allergy Type Status Severity Reaction(s) Onset Date Inacti ve Date Treating Clinician Comments Source REINA Inhibitors REINA Inhibitors Active [facility] Social History Social Habit Start Date Stop Date Quantity Comments Source Social History 2014-11-05 06:14:25 2014-11-05 06:14:25 [facility] Medications Ordered Medication Name Filled Medication Name Start Date Stop Da te Current Medication? Ordering Clinician Indication Dosage Frequency Signature (SIG) Comments Components Source Triamcinolone Acetonide 1 MG/ML Topical Cream 2017-05-05 06:31:1 7 Yes See Instructions, APPLY EXTERNALLY TO TH E AFFECTED AREA DAILY NEEDED, # 60 gm, 1 Refill(s), Pharmacy: [facility] [id number] [place] [address] [place] Lisinopril 2014-11-06 14:00:00 No 10 mg, Route: [...] PO, Daily, # 30 tab, 0 Refill(s) [facility] [place] lisinopril 10 mg oral tablet 2014-11-06 12:11:00 No 10 mg = 1 tab, PO, Daily, # 30 tab, 0 Refill(s) Layo Hopkins atorvastatin 80 mg oral tablet 2014-11-06 12:11:00 Yes 80 mg = 1 tab, PO, Bedtime, # 30 tab, 0 Refill(s) [facility] atorvastatin 2014-11-06 02:00:00 No 80 mg, Route: PO, Drug form: TAB, Bedtime, Dosing Weight 78.239, kg, Start date: 11/05/14 21:00:00, Duration: 30 day, Stop date: 12/04/14 21:00:00 [facility] [place] heparin 2014-11-05 23:00:00 No Notes: porci ne heparin [facility] Aspirin 2014-11-05 23:00:00 No Notes: Do not crush or chew. (Same As: Ecotrin) [facility] Zyloprim 2014-11-05 22:04:00 No Notes: (Lukas e as: Zyloprim) [facility] Allopurinol 2014-11-05 19:12:00 No Notes: ( Same as: Zyloprim) [facility] Lisinopril 2014-11-05 15:33:00 No Notes: (Same as: Prinivil, Zestril) [facility] lansoprazole 2014-11-05 14:00:00 No 30 mg, Route: NG, Drug form: SUSP, Daily, Dosing Weight 79.091, kg, Start date: 11/05/14 9:00:00, Duration: 30 day, Stop date: 12/04/14 9:00:00 [facility] [place] pantoprazole 2014-11-05 14:00:00 No 40 mg, Route: IVP, Drug form: INJ, Daily, Dosing Weight 79.091, kg, Start date: 11/05/14 9:00:00, Duration: 30 day, Stop date: 12/04/14 9:00:00 Penelopeoria l [place] Folic Acid 2014-11-05 14:00:00 No Notes: (S arlene as: Folvite) [facility] Thiamine 2014-11-05 14:00:00 No Notes: (Lukas e As: Vitamin B1) [facility] multivitamin 2014-11-05 14:00:00 No Notes: (Same as:Thera) Take with food. [facility] Famotidine 2014-11-05 02:00:00 No Notes: (S arlene as: Pepcid) [facility] Docusate 2014-11-05 02:00:00 No 100 mg, 1 cap, Route: PO, Drug form: CAP, Q12H, Dosing Weight 79.091, kg, Start date: 11/04/14 21:00:00, Duration: 30 day, Stop date: 12/04/14 9:00:00 Layo Hopkins Lipitor 2014-11-05 02:00:00 No Notes: Same as Lipitor [facility] [place] allopurinol 300 mg oral tablet 2014-11-05 01:01:00 Yes 300 mg = 1 tab, PO, Daily, 0 Refill(s) Rufina Her gunter Regular Insulin, Human 100 UNT/ML Injectable Solution 2014-11-05 00:36:00 No [address] units) [address] able for 28 days at room temperature Expires in days from Date [facility] Marck ramon Dextrose 50% Syringe 2014-11-05 00:36:00 No 25 gm, 50 mL, Route: IVP, Drug Form: INJ, Dosing Weight 79.091, kg, PRN, PRN Abnormal Lab Result, Start date: 11/04/14 19:36:00, Duration: 30 day, Stop date: 12/04/14 19:35:00 [facility] [place] iodixanol 2014-11-05 00:32:00 No Special Instructions: Dose = 2.2ml/kg, Max dose = 150ml -- "To be infused by Radiology Staff ONLY" [facility] [place] enalapril 2014-11-05 00:02:00 No Notes: (Sa me as: Vasotec-IV) [facility] Labetalol 2014-11-05 00:02:00 No 105 mmHg, Priority: Routine, Start date: 11/04/14 19:02:00, Duration: 3 doses or times, Stop date: Limited # of times [facility] Acetaminophen 2014-11-05 00:02:00 No Notes: Do not exceed 4 gm/day. (Same as: Tylenol) [facility] Bisacodyl 2014-11-05 00:02:00 No Notes: (Same As: Dulcolax, Bisco-Lax) [facility] Saline Flush 0.9% 2014 23:42:00 No Notes: (Same as: BD Posiflush) [facility] Vital Signs Vital Name Observation Time Observation Value Comments Source BMI Calculated 2017-03-02 19:34:00 Erlinda Rasmussen Weight 2017-03-02 19:34:00 [facility] Respitory Rate 2017-03-02 19:34:00 [facility] [place] Heart Rate 2017-03-02 19:34:00 [facility] [place] Systolic (mm Hg) 2017-03-02 19:34:00 [facility] [place] Diastolic (mm Hg) 2017-03-02 19:34:00 [facility] [place] Temperature Oral (F) 2017-03-02 19:34:00 98.2 F [facility] Height 2017-03-02 19:34:00 172.72 cm [facility] Temperature Oral (F) 2014-11-06 12:46:00 97.6 F [facility] Heart Rate 2014-11-06 12:46:00 [facility] Systolic (mm Hg) 2014-11-06 12:46:00 [facility] [place] Diastolic (mm Hg) 2014-11-06 12:46:00 [facility] [place] Respitory Rate 2014-11-06 12:46:00 [facility] [place] Systolic (mm Hg) 2014-11-06 09:05:00 [facility] [place] Diastolic (mm Hg) 2014-11-06 09:05:00 [facility] [place] Heart Rate 2014-11-06 09:05:00 [facility] [place] Respitory Rate 2014-11-06 09:05:00 [facility] [place] Temperature Oral (F) 2014-11-06 09:05:00 97.1 F [facility] Temperature Oral (F) 2014-11-06 04:38:00 98.6 F [facility] Heart Rate 2014-11-06 04:38:00 [facility] Respitory Rate 2014-11-06 04:38:00 [facility] [place] Systolic (mm Hg) 2014-11-06 04:38:00 [facility] [place] Diastolic (mm Hg) 2014-11-06 04:38:00 [facility] [place] Height 2014-11-05 06:00:00 172.72 cm [facility] [place] BMI Calculated 2014-11-05 06:00:00 [facility] [place] Weight 2014-11-05 06:00:00 [facility] Weight 2014 23:31:00 [facility] [place] Procedures Procedure Date / Time Performed Performing Clinician [facility] e Cataract surgery 2013-03-27 00:00:00 [facility] Angiogram 2009-03-27 00:00:00 Rufina gunter Hernia repair [facility] [place] Rotator cuff repair<sup>1</sup> Rufina [place] Encounters Start Date/Time End Date/Time Encounter Type Admission Type [facility] Care Department Encounter ID Source 2017-05-04 16:31:00 2017-05-05 23:59:59 Outpatient [facility] [id number] 2017-05-04 11:00:00 2017-05-04 11:00:00 Outpatient Willam Robledo [facility] [id number] 2017-05-04 11:00:00 2017-05-04 11:00:00 Outpatient Willam Robledo [facility] [id number] 2017-03-02 13:30:00 2017-03-02 23:59:59 Outpatient Willam Robledo [facility] [id number] 2016-12-08 11:55:00 2017-01-06 23:59:00 Outpatient [place] Robledo nicoleao [id number] 2016-11-08 12:00:00 2016-12-07 23:59:00 Outpatient Montana Robledo nicoleao [id number] 2016-10-05 12:50:00 2016-11-03 23:59:00 Outpatient Montana Robledo incoleao [id number] 2016-07-22 11:00:00 2016-08-20 23:59:00 Outpatient Montana Robledo nicoleao [id number] 2016-06-22 09:20:00 2016-07-21 23:59:00 Outpatient MeenaMontana nicoleao [id number] 2014 18:23:00 2014-11-06 11:40:00 Outpatient Gregg Kothari [facility] [id number] Results Test Description Test Time Test Comments Results Result Comments Source CXR 1 [facility] 2019-11-30 16:39:00 [place] [address] Patient Name: KERLINE MORAN MR #: [id number] : 1945 Age/Sex: 74/M Req #: [id number] Adm Physician: Ordered by: AMBER GREY MD Report #: [id number] Location: [facility] Room/Bed: Procedure: [id number] HOPD/CXR 1 VE - [facility] Exam Date: 11/30/19 Exam Time: 1637 REPORT STATUS: Signed EXAMINATION: CXR 1 [facility] INDICATION: fever COMPARISON: None FINDINGS: AP view [...] [facility] SPECIAL CHEMISTRY 2014-11-06 13:15:00 5.8 [facility] [place] ELECTROLYTES 2014-11-06 08:55:00 14.1 [facility] [place] ELECTROLYTES 2014-11-06 08:55:00 1.1 [facility] [place] ELECTROLYTES 2014-11-06 08:55:00 57 [facility] [place] ELECTROLYTES 2014-11-06 08:55:00 26 [facility] [place] ELECTROLYTES 2014-11-06 08:55:00 55 [facility] [place] ELECTROLYTES 2014-11-06 08:55:00 4.0 [facility] [place] ELECTROLYTES 2014-11-06 08:55:00 4.1 [facility] [place] ELECTROLYTES 2014-11-06 08:55:00 8 [facility] [place] ELECTROLYTES 2014-11-06 08:55:00 104 [facility] [place] ELECTROLYTES 2014-11-06 08:55:00 139 [facility] [place] ELECTROLYTES 2014-11-06 08:55:00 1.1 [facility] [place] ELECTROLYTES 2014-11-06 08:55:00 1.2 [facility] [place] ELECTROLYTES 2014-11-06 08:55:00 7 [facility] [place] ELECTROLYTES 2014-11-06 08:55:00 3.2 [facility] [place] ELECTROLYTES 2014-11-06 08:55:00 27 [facility] [place] ELECTROLYTES 2014-11-06 08:55:00 102 [facility] [place] ELECTROLYTES 2014-11-06 08:55:00 7.2 [facility] [place] ELECTROLYTES 2014-11-06 08:55:00 8.9 [facility] [place] ELECTROLYTES 2014-11-06 08:55:00 68 [facility] [place] CHEM PANEL 2014-11-05 08:17:00 76 [facility] [place] CHEM PANEL 2014-11-05 08:17:00 8.7 [facility] [place] CHEM PANEL 2014-11-05 08:17:00 20 [facility] [place] CHEM PANEL 2014-11-05 08:17:00 16.7 [facility] [place] CHEM PANEL 2014-11-05 08:17:00 1.0 [facility] [place] CHEM PANEL 2014-11-05 08:17:00 137 [facility] [place] CHEM PANEL 2014-11-05 08:17:00 6 [facility] [place] CHEM PANEL 2014-11-05 08:17:00 7.6 [facility] [place] CHEM PANEL 2014-11-05 08:17:00 4.1 [facility] [place] CHEM PANEL 2014-11-05 08:17:00 111 [facility] [place] CHEM PANEL 2014-11-05 08:17:00 6 [facility] [place] CHEM PANEL 2014-11-05 08:17:00 3.7 [facility] [place] CHEM PANEL 2014-11-05 08:17:00 104 [facility] [place] CHEM PANEL 2014-11-05 08:17:00 44 [facility] [place] CHEM PANEL 2014-11-05 08:17:00 53 [facility] [place] CHEM PANEL 2014-11-05 08:17:00 0.9 [facility] [place] CHEM PANEL 2014-11-05 08:17:00 31 [facility] [place] CHEM PANEL 2014-11-05 08:17:00 3.5 [facility] [place] CHEM PANEL 2014-11-05 08:17:00 1.2 [facility] [place] CHEM PANEL 2014-11-05 08:17:[facility] 2014-11-05 08:17:00 [facility] H[facility] 2014-11-05 08:17:00 Test Item PT (test code = PT) 21.6 s 12.0-14.7 [facility] EwlsmkvIXDFTVTRGG0942-53-23 08:17:00* Test Item Value Reference Range Interpretation Comments PTT (test code = PTT) 37.1 s 22.9-35.8 [facility] YacqucgLGIIPYSRJY0597-43-93 08:17:0042.6[facility]ann[facility]MATOLOGY 2014-11-05 08:17:004.32[facility] VolfdroHSQBODWKYJ6810-11-38 08:17:0011.5[facility] MozizwvDVMKHBCBTL0497-23-56 08:17:0014.1[facility] HutharpKRVNGOZEYO3305-84-14 08:17:0013.0[facility] EidikseVRZMDGJFGF9941-43-99 08:17:007.6[facility] [place] SKNJQUVZWQ9701-66-74 08:17:46650Xqvmemzy FckdizjBDABNVWSSH7428-52-67 08:17:00 33.1[facility] OcswabeBIPLTKSPAU8819-39-36 08:17:00* Test Item Value Reference Range Interpretation Comments MCH (test code = MCH) 32.6 pg 27.0-31.0 [facility] GdhsudjJHRQHVXKCK8028-34-97 08:17:0098.6[facility] HermannHEMATOLOGY 2014-11-05 08:17:003[facility] FlnciorQHJFCZBVYJ5001-75-33 08:17:001.1[facility] LgjeobyVUHMANLOUM3085-32-97 08:17:001.3[facility] YlgzccqSVFFXTZLAB4512-65-95 08:17:009.1[facility] GjjprjrIBILENLKZC7846-25-58 08:17:0011.0[facility] [place] APHOKOPELW5367-10-57 08:17:0079.2[facility] XjiifevZDSEWHBYBR1045-47-82 08:17:00 0.2[facility] ZpdnaihPMDTZYJUYH9320-96-08 08:17:000.3[facility]annHEMATOLOGY 2014-11-05 08:17:009.3[facility] CyjhnrwNIVKGK8713-62-03 06:25:15216Ustbsiqd McjjzrvIPYWGI6551-94-45 06:25:0026[facility] JzxzmghTRUEKJ9585-79-10 06:25:0072 [facility] AiwcvfaAAUKNR3945-28-08 06:25:002.85[facility] BnoqtxeYMROHV7234-85-95 06:25:99768Topfdmtu JeabvtcCSWWEC8780-15-04 06:25:42578Tduywzhq HermannDRUG EHWPFU9878-61-72 02:27:00Negative *NA*(11/04/14 9:27 PM)[facility] CWDJMV9080-07-52 02:27:00Negative *NA*(11/04/14 9:27 PM)[facility] IXWKDX1511-79-52 02:27:00Negative *NA*(11/04/14 9:27 PM)[facility] VZBHMB1402-13-04 02:27:00See Note (11/04/14 9:27 PM)[facility] SCREEN 2014-11-05 02:27:00Positive *ABN*(11/04/14 9:27 PM)[facility] SCREEN 2014-11-05 02:27:00Negative *NA*(11/04/14 9:27 PM)[facility] SCREEN 2014-11-05 02:27:00Negative *NA*(11/04/14 9:27 PM)[facility] SCREEN 2014-11-05 02:27:00Negative *NA*(11/04/14 9:27 PM)[facility] STOOL 2014-11-05 02:27:000.2[facility] BECMG2792-73-65 02:27:00Negative (11/04/14 9:27 PM)[facility] KVGMR0893-64-04 02:27:00Negative (11/04/14 9:27 PM)[facility] LARQW1576-71-95 02:27:001[facility] HFYMZ3649-49-24 02:27:00Yellow *NA*(11/04/14 9:27 PM)[facility] QHXAX8658-96-47 02:27:00* Test Item Value Reference Range Interpretation Comments UA pH (test code = UA pH) 6.0 1 5.0-8.0 [facility] YBOGI1763-55-70 02:27:00* Test Item Value Reference Range Interpretation Comments UA Spec Grav (test code = UA Spec Grav) 1.010 1 [facility] PSLHU7886-27-22 02:27:00Clear (11/04/14 9:27 PM) [facility] SNLPF4302-56-40 02:27:00Negative *NA*(11/04/14 9:27 PM) [facility] APPXH2371-71-53 02:27:00Large *ABN*(11/04/14 9:27 PM) [facility] RUKFJ4815-52-04 02:27:00Negative *NA*(11/04/14 9:27 PM) [facility] CKEYV0948-41-32 02:27:00Negative (11/04/14 9:27 PM) [facility]annCHEM PRRLU7503-56-26 00:01:0076[facility] HermannCHEM PANEL 2014-11-05 00:01:001.0[facility] HermannCARDIAC GRZARHV5013-58-45 23:50:001.1 [facility]annCARDIAC BEOKKJU5721-31-61 23:50:003.2[facility] HermannCARDIAC BSGQSPA3929-08-53 23:50:49838Piuwmquj HermannCARDIAC LCSUDQZ9217-35-00 23:50:00< 0.02[facility] OhdiylzCKMKLDCCFVVN2687-22-20 23:50:0022.1[facility] JKXOCIMWAUID8816-24-93 23:50:004.1[facility] AoqechkOBSZUJERVXEH9775-04-14 23:50:009.2[facility] GmhrvwbXSQEXTFTUNWH1608-48-88 23:50:39643Ubxuvwkf [facility] FAQTWQAPSQQE7608-24-97 23:50:0016[facility] ZjqlmneNZCLPGNELCNJ2668-17-21 23:50:00 207[facility] NjxrslgXLDRHRLJLWEE1930-13-29 23:50:007[facility] HermannELECTROLYTES 2014 23:50:001.3[facility] HintxbuHHLOBMDDUJBD6817-57-16 23:50:85218Nkdovtao TtqzrtpECMVRJIWMF1449-84-49 23:50:000.3[facility] RsrzbtgUKLSSENEHE3558-78-08 23:50:003.7[facility] XybusxeATTETCAJDQ1618-47-62 23:50:000.2[facility] [place] CCQEXIQWCB9326-83-22 23:50:0012.5[facility] EtrngbeKLKHPVUYUR2102-56-53 23:50:00 5.7[facility] NkjcaogRYIXCDOYOA2053-94-87 23:50:001+ *ABN*(11/04/14 6:50 PM) [facility] MerhlgxSTSKXOAFVR9074-69-72 23:50:000.5[facility] HermannHEMATOLOGY 2014 23:50:000.8[facility] SkrumhvBCQMATJCLL5311-48-85 23:50:0090.1[facility] LypxgwsWFAOMSRZUZ4272-22-51 23:50:00* Test Item Value Reference Range Interpretation Comments PTT (test code = PTT) 23.5 s 22.9-35.8 [facility] IthytxpZYXWYWGSPP5755-85-75 23:50:001.24[facility] HermannHEMATOLOGY 2014 23:50:00* Test Item Value Reference Range Interpretation Comments PT (test code = PT) 15.7 s 12.0-14.7 [facility] JhflitzDVSXUXSHXH9727-43-16 23:50:0043.1[facility] HermannHEMATOLOGY 2014 23:50:67067.2[facility] RdkclhnTLXVDSFDKV7779-96-89 23:50:007.4[facility] GtncaojQZPUXYQSTD6129-18-07 23:50:86363Mdpljnvw AltwhpzCKSGHTLXMN3879-37-16 23:50:0013.9[facility] EziauywVLROGMTVOI4061-69-55 23:50:00* Test Item Value Reference Range Interpretation Comments MCH (test code = MCH) 32.8 pg 27.0-31.0 [facility] IgenwpzOTFINEJQUY1965-53-28 23:50:0032.8[facility] HermannHEMATOLOGY 2014 23:50:0013.1[facility] RxbgbldZJYTIRMWOT7328-41-22 23:50:004.30[facility] DviqznuKCUMCGKXIF5312-49-15 23:50:0014.1[facility] [place]
--- NOTE | 2019-11-30 18:49 | NUR ---
Report attempted to room 284, would not take it as the nurse was in the middle of shift report
--- NOTE | 2019-11-30 18:51 | NUR ---
[facility] called to transport pt to room 284
--- NOTE | 2019-11-30 19:21 | NUR ---
Report to YAJAIRA Joseph
--- NOTE | 2019-11-30 19:25 | NUR ---
Report given to YAJAIRA Gtz
[2019-11-30] MEDS: SODIUM CHLORIDE 0.9% 1000ML 1,000 ML IV SCH (19:52)
--- NOTE | 2019-11-30 21:12 | NUR ---
H&P cc: fever HPI: 74yoM, PCP Dr.R. Jurado, developed right mid abdominal pain and fever, found to have UTI. PMH: HTN, stroke, abnormal gait with walker, left hemiparesis PSHx: hernia Allergies; see emr Fh/SH; ; no cigs; meds; see MAR ROS: no f/c/s/N/V/D/MONTEIRO/cp/sob/skin rash/confusion/dizziness/leg pain v/s; revd PE tired appearing anicteric ns1s2 mod bs soft nt nd no e/t skin dry n. affect a&ox3; mack labs/meds revd A/P: 74yoM UTI- IV ceftriaxone Sepsis- IV abx; IVF as needed HTN- restart home meds Physical deconditioning- PT Prop: scd DIspo; f/u labs CLARENCE MILLER MD, PHD
[2019-11-30] MEDS ORDERED: ZOLPIDEM TARTRATE 5 MG TAB PO PRN (21:15)
[2019-11-30] MEDS ORDERED: DOCUSATE SODIUM 100 MG CAP PO PRN (21:15)
[2019-11-30 21:40] VITALS: BP 99/60
--- NOTE | 2019-11-30 21:40 | NUR ---
PT RECEIVED FROM [facility]. ARRIVED VIA STRETCHER WITH EMT. PT ALERT, AWAKE, AND ORIENTED X 3. VITALS STABLE. #20 IN RIGHT AC DRESSING CLEAN, DRY, AND INTACT. NS INFUSING UPON ARRIVAL. PT UNAWARE OF MEDICATIONS TAKEN AT HOME. WILL CALL AND ASK FOR LIST OF MEDICATIONS. NO NEEDS AT THIS TIME. SCD'S APPLIED PER MD ORDERS. CALL LIGHT AND PERSONAL BELONGINGS WITHIN REACH. WILL CONTINUE TO MONITOR.
[2019-11-30 21:50] VITALS: BP 99/60
--- NOTE | 2019-11-30 22:00 | NUR ---
Spoke to pt's , Leilani, via phone. Updated home medication list received and updated in chart.
[2019-11-30] MEDS ORDERED: FLUOXETINE HCL20 MG PO (23:26)
[2019-11-30] MEDS ORDERED: ASPIRIN81 MG PO (23:26)
[2019-11-30] MEDS ORDERED: ATORVASTATIN CA20 MG PO (23:26)
[2019-11-30] MEDS ORDERED: BACLOFEN10 MG PO (23:26)
[2019-11-30] MEDS ORDERED: DONEPEZIL HCL10 MG PO (23:26)
[2019-11-30] MEDS ORDERED: CARVEDILOL6.25 MG (23:26)
[2019-12-01] VITALS (8 sets, daily range): BP systolic 100–123; BP diastolic 60–72
[2019-12-01] MEDS: SODIUM CHLORIDE 0.9% 1000ML 1,000 ML IV SCH ×2 (04:00→17:00)
[2019-12-01] MEDS: ACETAMINOPHEN 325 MG TAB PO PRN ×2 (04:22→19:41)
--- NOTE | 2019-12-01 06:40 | NUR ---
RECEIVED BEDSIDE SHIFT REPORT FROM OFF GOING NURSE. PATIENT IS RESTING IN BED, NO ACUTE DISTRESS NOTED. CALL LIGHT WITHIN REACH. BED IN THE LOWEST POSITION.
[2019-12-01 08:33] LABS: BASOPHILS % 0.2 % (0.0-1.0); EOSINOPHILS # (AUTO) 0.1 (0.0-0.4); HEMATOCRIT 34.6 % (38.2-49.6); LYMPHOCYTES # (AUTO) 1.3 (1.0-3.2); LYMPHOCYTES % 14.9 % (18.0-39.1); MEAN CORPUSCULAR HEMOGLOBIN 31.1 pg (28-32); MEAN CORPUSCULAR HGB CONC 31.8 g/dL (31-35); MEAN CORPUSCULAR VOLUME 97.7 fL (81-99); MONOCYTES # (AUTO) 0.7 (0.2-0.8); MONOCYTES % 8.5 % (4.4-11.3); NEUTROPHILS # (AUTO) 6.5 (2.1-6.9); NEUTROPHILS % 75.2 % (38.7-80.0); PLATELET COUNT 185 x10e3/uL (140-360); RED BLOOD COUNT 3.54 x10e6/uL (4.3-5.7); RED CELL DISTRIBUTION WIDTH 13.9 % (11.7-14.4)
[2019-12-01 08:44] LABS: ALANINE AMINOTRANSFERASE 17 IU/L (0-55); ALBUMIN 3.4 g/dL (3.5-5.0); ALBUMIN/GLOBULIN RATIO 1.3 (0.8-2.0); ALKALINE PHOSPHATASE 71 IU/L (40-150); ANION GAP 14.4 mmol/L (8-16); BLOOD UREA NITROGEN 17 mg/dL (7-26); BUN/CREATININE RATIO 19 (6-25); CALCIUM 8.2 mg/dL (8.4-10.2); CARBON DIOXIDE 21 mmol/L (22-29); CHLORIDE 108 mmol/L (98-107); CREATININE, SERUM 0.88 mg/dL (0.72-1.25); EST GLOMERULAR FILTRATION RATE > 60 ML/MIN (60-); GLUCOSE 93 mg/dL (74-118); POTASSIUM 3.4 mmol/L (3.5-5.1); SODIUM 140 mmol/L (136-145)
--- NOTE | 2019-12-01 09:25 | NUR ---
APPLIED AIR PUMP TO MATTRESS AT THIS TIME.
[2019-12-01] MEDS: ALLOPURINOL 300 MG TAB PO SCH (09:27)
[2019-12-01] MEDS: VALSARTAN 80 MG TAB PO SCH (09:27)
[2019-12-01] MEDS: HYDROCHLOROTHIAZIDE 25 MG TAB PO SCH (09:27)
--- NOTE | 2019-12-01 10:18 | NUR ---
IM- progress note O/N see below ROS: no f/c/s/N/V/D/MONTEIRO/cp/sob/skin rash/confusion/dizziness/leg pain v/s; revd PE tired appearing anicteric ns1s2 mod bs soft nt nd no e/t skin dry n. affect a&ox3; mack labs/meds revd A/P: 74yoM UTI- IV ceftriaxone HTN- restart home meds Physical deconditioning- PT Prop: scd DIspo; f/u labs 9-6 Hypokalemia- replace; cont care; Sepsis was NOT present on admission. CLARENCE MILLER MD, PHD
[2019-12-01 11:09] LABS: CLARITY,URINE SL CLOUDY (CLEAR); COLOR,URINE YELLOW (YELLOW)
[2019-12-01 11:10] LABS: KETONES,URINE NEGATIVE (NEGATIVE); LEUKOCYTE ESTERASE ,URINE SMALL (NEGATIVE); NITRITE,URINE NEGATIVE (NEGATIVE); PROTEIN,URINE DIPSTICK NEGATIVE (NEGATIVE)
[2019-12-01 11:11] LABS: BILIRUBIN,URINE NEGATIVE (NEGATIVE)
[2019-12-01 11:48] LABS: BACTERIA,URINE RARE /HPF; EPITHELIAL CELLS,URINE FEW /LPF; RBC,URINE 21-50 /HPF (0-5); WBC,URINE (MAN) >50 /HPF (0-5)
[2019-12-01 12:19] LABS: PARTIAL THROMBOPLASTIN TIME 29.9 seconds (23.8-35.5); PROTHROMBIN TIME 13.7 seconds (11.9-14.5)
[2019-12-01] MEDS ORDERED: POTASSIUM CHLORIDE 20 MEQ TAB CR PO NR (16:30)
[2019-12-01] MEDS: CEFTRIAXONE SOD 2 GM/NS 100 ML 100 ML IV SCH (17:00)
--- NOTE | 2019-12-01 19:00 | NUR ---
Resumed care of patient. Patient awake and resting in bed, respirations even and unlabored on room air, no s/s of distress at this time. Bed locked and in lowest position, side rails upx3, alarm on, call light placed within reach. Patient instructed to call for assistance if needed, verbalized understanding. All safety measures in place.
--- NOTE | 2019-12-01 19:16 | NUR ---
BEDSIDE SHIFT REPORT GIVEN TO ONCOMING NURSE. PATIENT IS RESTING IN BED, NO ACUTE DISTRESS NOTED. CALL LIGHT WITHIN REACH. BED IN THE LOWEST POSITION. BED ALARM ON.
--- NOTE | 2019-12-01 20:31 | NUR ---
Handoff report given to oncoming nurse. Patient in stable condition, no s/s of distress at this time. All safety measures in place.
[2019-12-02] VITALS (7 sets, daily range): BP systolic 126–141; BP diastolic 62–87
[2019-12-02] MEDS: SODIUM CHLORIDE 0.9% 1000ML 1,000 ML IV SCH ×2 (04:59→12:18)
--- NOTE | 2019-12-02 07:05 | NUR ---
REPORT GIVEN TO DAY NURSE. PATIENT IS RESTING IN BED. BED IS IN LOWEST POSITION AND CALL LIGHT IS WITHIN REACH.
[2019-12-02] MEDS: HYDROCHLOROTHIAZIDE 25 MG TAB PO SCH (08:17)
[2019-12-02] MEDS: ALLOPURINOL 300 MG TAB PO SCH (08:17)
[2019-12-02] MEDS: VALSARTAN 80 MG TAB PO SCH (08:17)
[2019-12-02 08:41] LABS: ANION GAP 15.8 mmol/L (8-16); BLOOD UREA NITROGEN 13 mg/dL (7-26); BUN/CREATININE RATIO 17 (6-25); CALCIUM 8.5 mg/dL (8.4-10.2); CARBON DIOXIDE 19 mmol/L (22-29); CHLORIDE 106 mmol/L (98-107); CREATININE, SERUM 0.78 mg/dL (0.72-1.25); EST GLOMERULAR FILTRATION RATE > 60 ML/MIN (60-); GLUCOSE 74 mg/dL (74-118); POTASSIUM 3.8 mmol/L (3.5-5.1); SODIUM 137 mmol/L (136-145)
--- NOTE | 2019-12-02 11:04 | NUR ---
IM- progress note O/N see below ROS: no f/c/s/N/V/D/MONTEIRO/cp/sob/skin rash/confusion/dizziness/leg pain v/s; revd PE tired appearing anicteric ns1s2 mod bs soft nt nd no e/t skin dry n. affect a&ox3; mack labs/meds revd A/P: 74yoM UTI- IV ceftriaxone HTN- restart home meds Physical deconditioning- PT Prop: scd DIspo; f/u labs 9-6 Hypokalemia- replace; cont care; Sepsis was NOT present on admission. 9-7 GNR UTI- f/u cx; cont antibiotics; Severe physical deconditioning- SNF eval. CLARENCE MILLER MD, PHD
--- NOTE | 2019-12-02 13:47 | NUR ---
SIGNED CHOICE FOR [facility], FILED IN CHART, COMPLETED RTF, COVID FORM AND PASRR. FAXED CLINICALS AND PUT PACKET AT [facility]URSES [facility].
[2019-12-02] MEDS: CEFTRIAXONE SOD 2 GM/NS 100 ML 100 ML IV SCH (15:59)
[2019-12-02] MEDS: ACETAMINOPHEN 325 MG TAB PO PRN (20:50)
[2019-12-03 00:03] VITALS: BP 140/77
[2019-12-03 00:14] VITALS: BP 140/77
[2019-12-03] MEDS: SODIUM CHLORIDE 0.9% 1000ML 1,000 ML IV SCH ×2 (01:37→06:00)
[2019-12-03 05:15] VITALS: BP 147/75
[2019-12-03 07:57] VITALS: BP 150/88
--- NOTE | 2019-12-03 08:36 | NUR ---
NURSE NOTIFIED ME THAT CALLED AND STATED HER WILL NOT GO TO A SNF, SHE WILL TAKE HIM HOME. CALLED AND NOTIFIED CM AND DOCTOR. STATES TO SET UP HOME HEALTH AND PT AT HOME, NOTIFIED CM.
[2019-12-03] MEDS: VALSARTAN 80 MG TAB PO SCH (08:47)
[2019-12-03] MEDS: HYDROCHLOROTHIAZIDE 25 MG TAB PO SCH (08:47)
[2019-12-03] MEDS: ALLOPURINOL 300 MG TAB PO SCH (08:47)
[2019-12-03 09:00] VITALS: BP 150/88
[2019-12-03] MEDS ORDERED: ESIDRIX25 MG PO (09:07)
[2019-12-03] MEDS ORDERED: DIOVAN80 MG PO (09:07)
[2019-12-03] MEDS ORDERED: KEFLEX500 MG PO (09:07)
--- NOTE | 2019-12-03 09:10 | NUR ---
D/C summary Principal Dx: E.coli UTI- IV ceftriaxone PHysical deconditioning SEcondary Dx: HTN- restart home meds Physical deconditioning- PT Prop: scd DIspo; f/u labs 9-6 Hypokalemia- replace; cont care; Sepsis was NOT present on admission. 9-7 GNR UTI- f/u cx; cont antibiotics; Severe physical deconditioning- SNF eval. d/c home on keflex and HH/PT stable d/c>35mins f/u pcp 2 days CLARENCE MILLER MD, PHD
--- NOTE | 2019-12-03 09:48 | NUR ---
CALL RECEIVED FROM DELISA COSTELLO STATING REFUSED TO SEND THE PT TO MED RESORT, BECAUSE SHE WOULD NOT BE ABLE TO STAY W HIM. ORDER RECEIVED FOR HOME HEALTH. CALL TO THE PT FOR CHOICE. PT ASKED THAT I CALL HIS TO ARRANGE HH. CALL TO PT'S ; SIDNEY MORAN @ [phone]. STATES PT IS ALREADY ON SERVICE W [facility]. STATES THE PT HAS A HOSPITAL BED AND OTHER DME. STATES SHE WOULD LIKE HELP W THE PT'S BATHS. CM ADDED THE REQUEST TO THE ORDER. REFERRAL WAS FAXED TO [facility] @ OFF: [phone] / FAX: [phone]. IMM LETTER WAS EXPLAINED. VERBALIZED UNDERSTANDING. IMM LETTER WAS SIGNED. COPY TO THE CHART AND COPY TO THE PT.
[2019-12-03 11:50] VITALS: BP 108/68
== END 2019-12-03 15:46 | disposition home or self-care (01) ==
LOC: FSED 15:55 → ERHOLD 17:53 → INTOOBSV 17:53 → MED/SURG3 21:01
PROVIDERS: ADMIT Internal Medicine; ATTEND Internal Medicine
DX: N39.0 Urinary tract infection, site not specified (principal); A41.9 Sepsis, unspecified organism; I10 Essential (primary) hypertension; Z74.09 Other reduced mobility; Z11.59 Encounter for screening for other viral diseases; E87.6 Hypokalemia; B96.20 Unspecified Escherichia coli [E. coli] as the cause of diseases classified elsewhere
CPT/HCPCS: 36415 ×2; 71045; 80048 ×2; 80053; 80076; 81001; 81003; 85025 ×2; 85610; 85730; 87040; 87071; 87086; 87186; 87205; 96361; 97110; 97116 ×2; 97139 ×2; 97162; 97530 ×2; 99284; G0378 ×4; J0696 ×5; J2405; J7030 ×3; U0002

== ENCOUNTER 2020-02-28 13:35 | Emergency (ER) | payer MEDICARE, OTHER ==
[~2020-02-28] VITALS: Ht 172.7 cm; Wt 75.7 kg
[~2020-02-28 13:35] MED LIST changes: +ASPIRIN81 MG PO; +ATORVASTATIN CA20 MG PO; +BACLOFEN10 MG PO; +CARVEDILOL6.25 MG; +DIOVAN80 MG PO; +DONEPEZIL HCL10 MG PO; +ESIDRIX25 MG PO; +FLUOXETINE HCL20 MG PO; +KEFLEX500 MG PO
--- NOTE | 2020-02-28 13:38 | Emergency Department Note ---
History of Present Illnes History of Present Illness Chief Complaint: General Medicine Complaints History of Present Illness This is a 74 year old male s/p fall 2 days prior after he suffered a mechanical fall onto his face. Denies LOC or n/v. Patient presents to the ED for evaluation of head injury and wrist pain . Historian: Patient, Family Member Arrival Mode: Car Onset (how long ago): day(s) (2) Location: L wrist Radiation: Reports extremity Severity: moderate Onset quality: sudden Duration (how long): day(s) (2) Timing of current episode: constant Progression: partially resolved Chronicity: new Context: Reports trauma/injury Relieving factors: none Exacerbating factors: none Associated symptoms: Denies denies other symptoms, Denies confusion, Denies chest pain, Denies cough, Denies diaphoresis, Denies fever/chills, Denies headaches, Denies loss of appetite, Denies malaise, Denies nausea/vomiting, Denies rash, Denies seizure, Denies shortness of breath, Denies syncope, Denies weakness, Denies other Past Medical/Family History Physician Review I have reviewed the patient's past medical and family history. Any updates have been documented here. Past Medical History Recent Fever: No Clinical Suspicion of Infectio: No New/Unexplained Change in Ment: No Past Medical History: Hypertension, CVA, Hyperlipedemia Other Medical History: Gout Past Surgical History: Hernia Repair Other Surgery: Left Inguinal hernia Bilateral Rotator cuff surgery Social History Smoking Cessation: Never Smoker Alcohol Use: None Any Illegal Drug Use: No Other Last Tetanus: < 5 years; Review of Systems Review of Systems Constitutional: Reports no symptoms EENTM: Reports no symptoms Cardiovascular: Reports no symptoms Respiratory: Reports no symptoms Gastrointestinal: Reports no symptoms Genitourinary: Reports no symptoms Musculoskeletal: Reports joint pain Integumentary: Reports no symptoms Neurological: Reports no symptoms Psychological: Reports no symptoms Endocrine: Reports no symptoms Hematological/Lymphatic: Reports no symptoms Physical Exam Related Data Allergies: Coded Allergies: No Known Allergies (Unverified , 11/19/13) Vital signs reviewed: Yes Physical Exam CONSTITUTIONAL Constitutional: Present well-developed, Present well-nourished HENT HENT: Present other (cephalohematoma L forehead) HENT L/R: Present left ext ear normal, Present right ext ear normal EYES Eyes: Reports PERRL, Reports conjunctivae normal NECK Neck: Present ROM normal PULMONARY Pulmonary: Present effort normal, Present breath sounds normal CARDIOVASCULAR Cardiovascular: Present regular rhythm, Present heart sounds normal, Present capillary refill normal, Present normal rate GASTROINTESTINAL Abdominal: Present soft, Present nontender, Present bowel sounds normal GENITOURINARY Genitourinary: Present exam deferred SKIN Skin: Present warm, Present dry MUSCULOSKELETAL Musculoskeletal: Present deformity (left wrist) NEUROLOGICAL Neurological: Present alert, Present oriented x 3, Present no gross motor or sensory deficits PSYCHOLOGICAL Psychological: Present mood/affect normal, Present judgement normal Results Imaging Imaging results reviewed: Yes Impressions [place] [address] Patient Name: KERLINE MORAN MR #: [id number] : 1945 Age/Sex: 74/M Req #: [id number] Adm Physician: Ordered by: SINDY TORRES DO Report #: [id number] Location: Room/Bed: Procedure: [id number] CT/CT BRAIN WO Exam Date: 02/28/20 Exam Time: 1355 REPORT STATUS: Signed Examination: CT BRAIN WO History:Fall Comparison studies:None Technique: Axial images were obtained from the skull base to the vertex. Coronal and sagittal images reconstructed from the axial data. Dose modulation, iterative reconstruction, and/or weight based adjustment of the mA/kV was utilized to reduce the radiation dose to as low as reasonably achievable. Intravenous contrast: None Findings: Scalp: No abnormalities. Bones: No fractures, blastic or lytic lesions. Brain sulci: Generalized volume loss for age. Ventricles: No hydrocephalus. Extra-axial space: No abnormalities. Parenchyma: There are confluent (right worse on left) areas of hypoattenuation in the periventricular and subcortical white matter, nonspecific . Chronic lacunar infarcts are demonstrated in the anterior left thalamus, left putamen. There is an encephalomalacic cavity in the right subinsular region that could be from prior vascular insult and results in Wallerian degeneration of the right cerebral peduncle. No masses, hemorrhage, or acute or chronic cortical based vascular insults. Sellar/suprasellar region: No abnormalities. Craniocervical junction: Patent foramen magnum. No Chiari one malformation. Incidental findings: None. Impression: No acute intracranial abnormality. Chronic vascular insults/infarcts, as above. Chronic microvascular ischemic change. Generalized volume loss. Signed by: Dr. Marine Ring M.D. on 02/28/2020 2:40 PM Dictated By: MARINE PAREDES MD 1440 Transcribed By: SUDHEER on 02/28/20 1440 COPY TO: SINDY TORRES DO~ [place] [address] Patient Name: KERLINE MORAN MR #: [id number] : 1945 Age/Sex: 74/M Req #: [id number] Adm Physician: Ordered by: SINDY TORRES DO Report #: [id number] Location: ER Room/Bed: Procedure: [id number] CT/CT MAXIO FAC/SONIA LAURENT Exam Date: 02/28/20 Exam Time: 1355 REPORT STATUS: Signed Examination: CT Face without Contrast History:Face injury Comparison studies: None Technique: Axial images were obtained through the maxillofacial region. Coronal and sagittal reconstructions obtained from the axial data. Dose modulation, iterative reconstruction, and/or weight based adjustment of the mA/kV was utilized to reduce the radiation dose to as low as reasonably achievable. Intravenous contrast: None Findings: Soft tissues: No abnormalities. Bones: No fractures or bony abnormalities. Orbits: Globes: Intact. Bilateral slitlike orbital lenses Extra or intraconal abnormalities: None. Paranasal sinuses: Clear. IMPRESSION: No acute facial fracture. Signed by: Dr. Marine Ring M.D. on 02/28/2020 2:42 PM Dictated By: MARINE PAREDES MD 144 Transcribed By: SUDHEER on 02/28/20 144 COPY TO: SINDY TORRES DO~ [place] [address] Patient Name: KERLINE MORAN MR #: [id number] : 1945 Age/Sex: 74/M Req #: [id number] Adm Physician: Ordered by: SINDY TORRES DO Report #: [id number] Location: ER Room/Bed: Procedure: [id number] DX/WRIST COMPLETE LEFT Exam Date: 02/28/20 Exam Time: 1411 REPORT STATUS: Signed Exam: FOREARM LEFT 2 VIEW, WRIST COMPLETE LEFT History: Fall Comparison: None. Findings: Evaluation is partially limited by positioning, especially wrist evaluation. No acute displaced fracture visualized given exam limitations with marked flexion at the wrist and diffuse osseous demineralization. No gross joint dislocation. Degenerative arthrosis is mild at the radiocarpal joint and moderate at the triscaphe joint. Soft tissues are unremarkable. Impression: 1. No acute displaced fracture visualized given exam limitations with marked flexion of the wrist and diffuse osseous demineralization. 2. 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 Signed by: Dr. Jacob Ocasio M.D. on 02/28/2020 2:44 PM Dictated By: JACOB OCASIO MD 43 Transcribed By: SUDHEER on 02/28/201443 COPY TO: SINDY TORRES DO~ [place] [address] Patient Name: KERLINE MORAN MR #: [id number] : 1945 Age/Sex: 74/M Req #: [id number] Adm Physician: Ordered by: SINDY TORRES DO Report #: [id number] Location: ER Room/Bed: Procedure: [id number] DX/FOREARM LEFT 2 VIEW Exam Date: 02/28/20 Exam Time: 1411 REPORT STATUS: Signed Exam: FOREARM LEFT 2 VIEW, WRIST COMPLETE LEFT History: Fall Comparison: None. Findings: Evaluation is partially limited by positioning, especially wrist evaluation. No acute displaced fracture visualized given exam limitations with marked flexion at the wrist and diffuse osseous demineralization. No gross joint dislocation. Degenerative arthrosis is mild at the radiocarpal joint and moderate at the triscaphe joint. Soft tissues are unremarkable. Impression: 1. No acute displaced fracture visualized given exam limitations with marked flexion of the wrist and diffuse osseous demineralization. 2. 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 Signed by: Dr. Jacob Ocasio M.D. on 02/28/2020 2:44 PM Dictated By: JACOB OCASIO MD 43 Transcribed By: SUDHEER on 02/28/201443 COPY TO: SINDY TORRES DO~ [facility] [address] [place] [address] Patient Name: KERLINE MORAN MR #: [id number] : 1945 Age/Sex: 74/M Req #: [id number] Adm Physician: Ordered by: SINDY TORRES DO Report #: [id number] Location: ER Room/Bed: Procedure: [id number] CT/CT CERVICAL SPINE WO Exam Date: 02/28/20 Exam Time: 1355 REPORT STATUS: Signed Examination: CT CERVICAL SPINE WO HISTORY:Fall. COMPARISON:None. TECHNIQUE: Multidetector helical axial images were obtained without contrast from the foramen magnum to T1. Coronal and sagittal reformatted images were done. Bone and soft tissue windows were evaluated. Dose modulation, iterative reconstruction, and/or weight based adjustment of the mA/kV was utilized to reduce the radiation dose to as low as reasonably achievable. FINDINGS: Alignment:Normal alignment and lordosis. Vertebrae: Normal height and density. No acute fracture, infection or neoplasm. Disc space heights: Normal height. Caliber of spinal canal: Developmentally normal. Posterior fossa and craniocervical junction: Foramen magnum patent. No Chiari 1 malformation. Soft tissues: No abnormality. Degenerative changes: C2-C3: Bilateral uncovertebral and facet arthropathy result in mild bilateral neural foraminal narrowing. No canal stenosis. C3-C4: Asymmetric to the left disc osteophyte complex and bilateral uncovertebral and facet arthropathy result in mild right and severe left neural foraminal narrowing. No canal stenosis. C4-C5: Diffuse disc osteophyte complex and bilateral uncovertebral and facet arthropathy result in moderate bilateral neural foraminal narrowing. No canal stenosis. C5-C6: Diffuse disc osteophyte complex and bilateral uncovertebral and facet arthropathy result in mild bilateral neural foraminal narrowing. No canal stenosis. C6-C7: Diffuse disc osteophyte complex and bilateral uncovertebral arthropathy result in moderate bilateral neural foraminal narrowing. No canal stenosis. Visualized lung apices: No abnormalities. IMPRESSION: 1. No acute abnormality, specifically, no acute fracture. 2. Degenerative changes as above. Signed by: Dr. Marine Ring M.D. on 02/28/2020 2:45 PM Dictated By: MARINE PAREDES MD 44 Transcribed By: SUDHEER on 02/28/201444 COPY TO: SINDY TORRES DO~ Assessment & Plan Medical Decision Making MDM diff dx: skull fx, traumatic intracranial brain injury, UE fx, UE msc sprain/strain Assessment & Plan Final Impression: (1) Facial contusion (2) Head injury (3) Left wrist sprain Depart Disposition: HOME, SELF-prison Meds Active Scripts Cephalexin Monohydrate (KEFLEX) 500 Mg Capsule, 500 MG PO Q12H, #6 Prov:CLARENCE MILLER MD 12/03/19 Hydrochlorothiazide* (ESIDRIX*) 25 Mg Tab, 25 MG PO DAILY for 30 Days, TAB Prov:CLARENCE MILLER MD 12/03/19 Valsartan (DIOVAN) 80 Mg Tab, 160 MG PO DAILY for 30 Days, TAB Prov:CLARENCE MILLER MD 12/03/19 Reported Medications Donepezil Hcl (DONEPEZIL HCL) 10 Mg Tablet, 10 MG PO DAILY 11/30/19 Fluoxetine Hcl (FLUOXETINE HCL) 20 Mg Capsule, 20 MG PO DAILY, #30 CAP 11/30/19 Aspirin (ASPIRIN) 81 Mg Tab.chew, 81 MG PO DAILY 11/30/19 Atorvastatin Calcium (ATORVASTATIN CALCIUM) 20 Mg Tablet, 40 MG PO HS, #30 TAB 11/30/19 Baclofen (BACLOFEN) 10 Mg Tablet, 10 MG PO BID, TAB 11/30/19 Carvedilol (CARVEDILOL) 6.25 Mg Tablet, 6.25 MG HS 11/30/19 Allopurinol (ALLOPURINOL) 300 Mg Tablet, 300 MG PO HS, #30 TAB 11/19/13 SINDY TORRES DO Feb 28, 2020 13:38
--- OUTSIDE RECORDS SUMMARY | 2020-02-28 13:41 | XMS REPORT | Continuity of Care Document ---
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.94 Active 10/05/2016 STROKE, LT SIDE Active 06/22/2016 [facility] STROKE LEFT SIDE Active 03/27/2016 [facility] LEFT LEG WEAKNESS Active 03/27/2016 [facility] za CVA Active 0 09/17/2015 [facility] LEFT LEG/STROKE Active 08/13/2015 [facility] STROKE Active 2014 [facility] LIFE FLIGHT Active 2014 [facility] Foot-drop (finding) Active Problem 08/11/2017 Medical Group,[facility] Gout (disorder) Active Problem 08/11/2017 Medical Group,[facility], History of cerebrovascular accident with residual deficit (situation) Active Prob mandy 08/11/2017 Medical Group, Hypertensive disorder, systemic arterial (disorder) [facility] Problem [facility]11/[address] Impaired fasting glycaemia (disorder) Active Problem Medical Group, Left hemiplegia (disorder) Act brandon [facility] Mixed hyperlipidemia (disorder) Active Problem Medical Group,[facility] Recurrent major depressive episodes, mod erate (disorder) Active Prob mandy 08/11/[address] [facility] Shoulder pain (finding) Active Problem 08/11/2017 Medical Group,[facility] [place] CVA Active [facility] STROKE LT SIDE Active ,[facility] sadena Medications Medication Details Route Status Patient Instructions Ordering Provider Order Date Source Triamcinolone Acetonide 1 MG/ML Topical Cream See Instructions, APPLY EXTERNALLY TO THE AFFECTED AREA DAILY NEEDED, # 60 gm, 1 Refill(s), Pharmacy: [facility] [id number] Active 05/05/2017 Medical Group Lisinopril 10 mg, Route: PO, D rug form: TAB, Daily, Dosing Weight 78.239, kg, Start date: 11/06/14 9:00:00, Duration: 30 day, Stop date: 12/05/14 9:00:00 No Longer Active 11/06/2014 [facility] nter losartan 25 mg oral tablet 25 mg = 1 tab, PO, Daily, # 90 tab, 0 Refill(s) Active 11/06/2014 [facility] lisinopril 20 mg oral tablet 2 0 mg, PO, Daily, # 90 tab, 2 Refill(s) Inactive 11/06/2014 [facility] Aspirin 81 MG Enteric Coated Tablet 81 mg = 1 tab, PO, Daily, # 30 tab, 0 Refill(s) Active 11/06/2014 [facility] nter lisinopril 10 mg oral tablet 1 0 mg = 1 tab, PO, Daily, # 30 tab, 0 Refill(s) Inactive 11/06/2014 [facility] atorvastatin 80 mg oral tablet 80 mg = 1 tab, PO, Bedtime, # 30 tab, 0 Refill(s) Active 11/06/2014 [facility] nter atorvastatin 80 mg, Route: PO, Drug form: TAB, Bedtime, Dosing Weight 78.239, kg, Start date: 11/05/14 21:00:00, Duration: 30 day, Stop date: 12/04/14 21:00:00 Inactive 11/06/2014 [facility] nter heparin Notes: porcine heparin No Longer Active 11/05/2014 [facility] Aspirin Notes: Do not crush or chew. (Same As: Ecotrin) No Longer Active 11/05/2014 [facility] Zyloprim Notes: (Same as: Zylo prim) No Longer Active 11/05/2014 [facility] Allopurinol Notes: (Same as: Z yloprim) Inactive 11/05/2014 [facility] Lisinopril Notes: (Same as: Pr inivil, Zestril) No Longer Active 11/05/2014 [facility] lansoprazole 30 mg, Route: NG, Drug form: SUSP, Daily, Dosing Weight 79.091, kg, Start date: 11/05/14 9:00:00, Duration: 30 day, Stop date: 12/04/14 9:00:00 No Longer Active 11/05/2014 [facility] nter pantoprazole 40 mg, Route: IVP , Drug form: INJ, Daily, Dosing Weight 79.091, kg, Start date: 11/05/14 9:00:00, Duration: 30 day, Stop date: 12/04/14 9:00:00 Inactiv e 11/05/2014 [facility] Folic Acid Notes: (Same as: Fo lvite) No Longer Active 11/05/2014 [facility] Thiamine Notes: (Same As: Mechelle min B1) No Longer Active 11/05/2014 [facility] multivitamin Notes: (Same as:T marcus) Take with food. No Longer Active 11/05/2014 [facility] Famotidine Notes: (Same as: Pe pcid) No Longer Active 11/05/2014 [facility] Docusate 100 mg, 1 cap, Route: PO, Drug form: CAP, Q12H, Dosing Weight 79.091, kg, Start date: 11/04/14 21:00:00, Duration: 30 day, Stop date: 12/04/14 9:00:00 No Longer Active 11/05/2014 [facility] nter Lipitor Notes: Same as Lipitor No Longer Active 11/05/2014 [facility] allopurinol 300 mg oral tablet 300 mg = 1 tab, PO, Daily, 0 Refill(s) Active 11/05/2014 [facility] Regular Insulin, Human 100 UNT/ML Injectable Solution 60 units) Stable for 28 days at room temperature Expires in days from Date No Longer Active 11/05/2014 [facility] nter Dextrose 50% Syringe 25 gm, 50 mL, Route: IVP, Drug Form: INJ, Dosing Weight 79.091, kg, PRN, PRN Abnormal Lab Result, Start date: 11/04/14 19:36:00, Duration: 30 day, Stop date: 12/04/14 19:35:00 No Longer Active 11/05/2014 [facility] iodixanol Special Instructions : Dose = 2.2ml/kg, Max dose = 150ml -- "To be infused by Radiology Staff ONLY" Inactive 11/05/2014 [facility] enalapril Notes: (Same as: Vas otec-IV) No Longer Active 11/05/2014 [facility] Labetalol 105 mmHg, Priority: Routine, Start date: 11/04/14 19:02:00, Duration: 3 doses or times, Stop date: Limited # of times No Longer Active 11/05/2014 [facility] Acetaminophen Notes: Do not ex ceed 4 gm/day. (Same as: Tylenol) No Longer Active 11/05/2014 [facility] Bisacodyl Notes: (Same As: Dul colax, Bisco-Lax) No Longer Active 11/05/2014 [facility] Saline Flush 0.9% Notes: (Same as: BD Posiflush) No Longer Active 2014 [facility] Allergies, Adverse Reactions, Alerts Substance Category Reaction Severity Reaction type Status Date Reported Comments Source REINA Inhibitors Assertion Drug allergy Active [facility] Immunizations Immunization Date Given Site Status Last Updated Comments Source influenza virus vaccine, inactivated<sup>1</sup> 11/17/2016 Right Deltoid completed Mikey Result Comment: patient waited 15 min with no reaction [facility], Hx influenza vaccine-unspecified 01/26/2016 completed C freeman [facility] Hx pneumococcal vaccine 2014 completed C freeman [facility] Results Order Name Results Value Reference Range Date Interpretation Comments Source LIPIDS LDL Direct 108 <=99 mg/dL 11/06/2014 [facility] SPECIAL CHEMISTRY Hgb A1C 5.8 <=5.6 % 11/06/2014 [facility] ELECTROLYTES AGAP 14.1 10.0 - 20.0 11/06/2014 [facility] ELECTROLYTES Bili Total 1.1 0.2 - 1.3 11/06/2014 [facility] ELECTROLYTES AST 57 0 - 37 11/06/2014 [facility] ELECTROLYTES ALT 26 0 - 65 11/06/2014 [facility] ELECTROLYTES Alk Phos 55 39 - 136 11/06/2014 [facility] ELECTROLYTES Albumin Lvl 4.0 3.5 - 5.0 11/06/2014 [facility] ELECTROLYTES Potassium Lvl 4.1 3.5 - 5.1 11/06/2014 [facility] ELECTROLYTES BUN 8 7 - 22 11/06/2014 [facility] ELECTROLYTES Glucose Lvl 104 70 - 99 11/06/2014 [facility] ELECTROLYTES Sodium Lvl 139 135 - 145 11/06/2014 [facility] ELECTROLYTES Creatinine Lvl 1.1 0.5 - 1.4 11/06/2014 [facility] ELECTROLYTES A/G Ratio 1.2 0.7 - 1.6 11/06/2014 [facility] ELECTROLYTES B/C Ratio 7 6 - 25 11/06/2014 [facility] ELECTROLYTES Globulin 3.2 2.0 - 4.0 11/06/2014 [facility] ELECTROLYTES CO2 27 24 - 32 11/06/2014 [facility] ELECTROLYTES Chloride Lvl 102 95 - 109 11/06/2014 [facility] ELECTROLYTES Total Protein 7.2 6.4 - 8.4 11/06/2014 [facility] ELECTROLYTES Calcium Lvl 8.9 8.5 - 10.5 11/06/2014 [facility] ELECTROLYTES eGFR 68 11/06/2014 Result Comment: The [...] should be multiplied by the estimated BMI. [facility] CHEM PANEL eGFR 76 11/05/2014 Result Comment: [...] should be multiplied by the estimated BMI. [facility] CHEM PANEL Calcium Lvl 8.7 8.5 - 10.5 11/05/2014 [facility] CHEM PANEL CO2 20 24 - 32 11/05/2014 [facility] CHEM PANEL AGAP 16.7 10.0 - 20.0 11/05/2014 [facility] CHEM PANEL Creatinine Lvl 1.0 0.5 - 1.4 11/05/2014 [facility] CHEM PANEL Sodium Lvl 137 135 - 145 11/05/2014 [facility] CHEM PANEL B/C Ratio 6 6 - 25 11/05/2014 [facility] CHEM PANEL Total Protein 7.6 6.4 - 8.4 11/05/2014 [facility] CHEM PANEL Albumin Lvl 4.1 3.5 - 5.0 11/05/2014 [facility] CHEM PANEL Glucose Lvl 111 70 - 99 11/05/2014 [facility] CHEM PANEL BUN 6 7 - 22 11/05/2014 [facility] CHEM PANEL Potassium Lvl 3.7 3.5 - 5.1 11/05/2014 [facility] CHEM PANEL Chloride Lvl 104 95 - 109 11/05/2014 [facility] CHEM PANEL AST 44 0 - 37 11/05/2014 [facility] CHEM PANEL Alk Phos 53 39 - 136 11/05/2014 [facility] CHEM PANEL Bili Total 0.9 0.2 - 1.3 11/05/2014 [facility] CHEM PANEL ALT 31 0 - 65 11/05/2014 [facility] CHEM PANEL Globulin 3.5 2.0 - 4.0 11/05/2014 [facility] CHEM PANEL A/G Ratio 1.2 0.7 - 1.6 11/05/2014 [facility] CHEM PANEL Bili Direct 0.2 0.0 - 0.3 11/05/2014 [facility] HEMATOLOGY INR 1.83 0.85 - 1.17 11/05/2014 [facility] HEMATOLOGY PT 21.6 12.0 - 14.7 11/05/2014 [facility] HEMATOLOGY PTT 37.1 22.9 - 35.8 11/05/2014 [facility] HEMATOLOGY Hct 42.6 42.0 - 54.0 11/05/2014 [facility] HEMATOLOGY RBC 4.32 4.70 - 6.10 11/05/2014 [facility] HEMATOLOGY WBC 11.5 3.7 - 10.4 11/05/2014 [facility] HEMATOLOGY Hgb 14.1 14.0 - 18.0 11/05/2014 [facility] HEMATOLOGY RDW 13.0 11.5 - 14.5 11/05/2014 [facility] HEMATOLOGY MPV 7.6 7.4 - 10.4 11/05/2014 [facility] HEMATOLOGY Platelet 255 133 - 450 11/05/2014 [facility] HEMATOLOGY MCHC 33.1 32.0 - 36.0 11/05/2014 [facility] HEMATOLOGY MCH 32.6 27.0 - 31.0 11/05/2014 [facility] HEMATOLOGY MCV 98.6 80.0 - 94.0 11/05/2014 [facility] HEMATOLOGY Sed Rate 3 0 - 15 11/05/2014 [facility] HEMATOLOGY Monocytes # 1.1 0.0 - 0.8 11/05/2014 [facility] HEMATOLOGY Lymphocytes # 1.3 1.0 - 5.5 11/05/2014 [facility] HEMATOLOGY Segs-Bands # 9.1 1.5 - 8.1 11/05/2014 [facility] HEMATOLOGY Lymphocytes 11.0 20.0 - 40.0 11/05/2014 [facility] HEMATOLOGY Segs 79.2 45.0 - 75.0 11/05/2014 [facility] HEMATOLOGY Eosinophils 0.2 0.0 - 4.0 11/05/2014 [facility] HEMATOLOGY Basophils 0.3 0.0 - 1.0 11/05/2014 [facility] HEMATOLOGY Monocytes 9.3 2.0 - 12.0 11/05/2014 [facility] LIPIDS LDL (Calculated) 107 <=99 mg/dL 11/05/2014 [facility] LIPIDS VLDL 26 11/05/2014 [facility] LIPIDS HDL 72 >=61 mg/dL 11/05/2014 [facility] LIPIDS CHD Risk 2.85 4.00 - 7.30 11/05/2014 [facility] LIPIDS Chol 205 <=199 mg/dL 11/05/2014 [facility] LIPIDS Trig 132 <=149 mg/dL 11/05/2014 [facility] DRUG SCREEN U Cannab Scr Nega tive *NA* (11/04/14 9:27 PM) Negative 11/05/2014 [facility] DRUG SCREEN U Opiate Scr Nega tive *NA* (11/04/14 9:27 PM) Negative 11/05/2014 [facility] DRUG SCREEN U Phencyc Scr Nega tive *NA* (11/04/14 9:27 PM) Negative 11/05/2014 [facility] DRUG SCREEN UDS Note See Note (11/04/14 9:27 PM) 11/05/2014 [facility] DRUG SCREEN U Benzodia Scr Posi tive *ABN* (11/04/14 9:27 PM) Negative 11/05/2014 [facility] DRUG SCREEN U Cocaine Scr Nega tive *NA* (11/04/14 9:27 PM) Negative 11/05/2014 [facility] DRUG SCREEN U Amph Scr Nega tive *NA* (11/04/14 9:27 PM) Negative 11/05/2014 [facility] DRUG SCREEN U Ana Scr Nega tive *NA* (11/04/14 9:27 PM) Negative 11/05/2014 [facility] URINE AND STOOL UA Bacteria Rare 11/05/2014 [facility] URINE AND STOOL UA RBC 6-10 /HPF 0 - 2 11/05/2014 [facility] URINE AND STOOL UA Urobilinogen 0.2 0.1 - 1.0 11/05/2014 [facility] URINE AND STOOL UA Nitrite Negative (11/04/14 9:27 PM) Negative 11/05/2014 [facility] URINE AND STOOL UA Leuk Est Negative (11/04/14 9:27 PM) Negative 11/05/2014 [facility] URINE AND STOOL UA WBC 1 11/05/2014 [facility] URINE AND STOOL UA Sq Epi Rare /LPF Few /LPF 11/05/2014 [facility] URINE AND STOOL UA Color Yellow *NA* (11/04/14 9:27 PM) Yellow 11/05/2014 [facility] URINE AND STOOL UA Protein 100 mg/dL Negative mg/dL 11/05/2014 [facility] URINE AND STOOL UA pH 6.0 5.0 - 8.0 11/05/2014 [facility] URINE AND STOOL UA Spec Grav 1.010 <=1.030 11/05/2014 [facility] URINE AND STOOL UA Turbidity Clear (11/04/14 9:27 PM) Clear 11/05/2014 [facility] URINE AND STOOL UA Ketones Negative *NA* (11/04/14 9:27 PM) Negative 11/05/2014 [facility] URINE AND STOOL UA Blood Large *ABN* (11/04/14 9:27 PM) Negative 11/05/2014 [facility] URINE AND STOOL UA Bili Negative *NA* (11/04/14 9:27 PM) Negative 11/05/2014 [facility] URINE AND STOOL UA Glucose Negative (11/04/14 9:27 PM) Negative 11/05/2014 [facility] CHEM PANEL eGFR 76 11/05/2014 Result Comment: [...] should be multiplied by the estimated BMI. [facility] CHEM PANEL POC Creatinine 1.0 0.5 - 1.4 11/05/2014 [facility] CARDIAC ENZYMES CK MB Index 1.1 0.0 - 2.5 2014 [facility] CARDIAC ENZYMES CK MB 3.2 0.5 - 3.6 2014 [facility] CARDIAC ENZYMES Total CK 299 12 - 191 2014 [facility] CARDIAC ENZYMES Troponin-I <0.02 0.00 - 0.40 2014 [facility] ELECTROLYTES AGAP 22.1 10.0 - 20.0 2014 [facility] ELECTROLYTES Potassium Lvl 4.1 3.5 - 5.1 2014 [facility] ELECTROLYTES Calcium Lvl 9.2 8.5 - 10.5 2014 [facility] ELECTROLYTES Chloride Lvl 100 95 - 109 2014 [facility] ELECTROLYTES CO2 16 24 - 32 2014 [facility] ELECTROLYTES Glucose Lvl 207 70 - 99 2014 [facility] ELECTROLYTES BUN 7 7 - 22 2014 [facility] ELECTROLYTES Creatinine Lvl 1.3 0.5 - 1.4 2014 [facility] ELECTROLYTES Sodium Lvl 134 135 - 145 2014 [facility] HEMATOLOGY Eosinophils 0.3 0.0 - 4.0 2014 [facility] HEMATOLOGY Monocytes 3.7 2.0 - 12.0 2014 [facility] HEMATOLOGY Basophils 0.2 0.0 - 1.0 2014 [facility] HEMATOLOGY Segs-Bands # 12.5 1.5 - 8.1 2014 [facility] HEMATOLOGY Lymphocytes 5.7 20.0 - 40.0 2014 [facility] HEMATOLOGY Macrocyte 1+ *ABN* (11/04/14 6:50 PM) None Seen 2014 [facility] HEMATOLOGY Monocytes # 0.5 0.0 - 0.8 2014 [facility] HEMATOLOGY Lymphocytes # 0.8 1.0 - 5.5 2014 [facility] HEMATOLOGY Segs 90.1 45.0 - 75.0 2014 [facility] HEMATOLOGY PTT 23.5 22.9 - 35.8 2014 [facility] HEMATOLOGY INR 1.24 0.85 - 1.17 2014 [facility] HEMATOLOGY PT 15.7 12.0 - 14.7 2014 [facility] HEMATOLOGY Hct 43.1 42.0 - 54.0 2014 [facility] HEMATOLOGY MCV 100.2 80.0 - 94.0 2014 [facility] HEMATOLOGY MPV 7.4 7.4 - 10.4 2014 [facility] HEMATOLOGY Platelet 268 133 - 450 2014 [facility] HEMATOLOGY WBC 13.9 3.7 - 10.4 2014 [facility] HEMATOLOGY MCH 32.8 27.0 - 31.0 2014 [facility] HEMATOLOGY MCHC 32.8 32.0 - 36.0 2014 [facility] HEMATOLOGY RDW 13.1 11.5 - 14.5 2014 [facility] HEMATOLOGY RBC 4.30 4.70 - 6.10 2014 [facility] HEMATOLOGY Hgb 14.1 14.0 - 18.0 2014 [facility] Pathology Reports No Data Provided for This [...] examination of the brain is unchanged. 11/05/2014 [facility] Brain wo contrast CT EXAM: CT of [...] No early signs of brain ischemia. 11/05/2014 [facility] Brain wo contrast MRI EXAM: MR I BRAIN WITHOUT CONTRAST DATE: Nov 05, 2014 12:10:00 AM INDICATION: Acute cognitive change TECHNIQUE: Multiplanar multisequence MRI images of the head were obtained without intravenous contrast administration. COMPARISON: CT angiogram the head and neck dated 2014 FINDINGS: Diffusion-weighted images do not demonstrate any evidence of ischemic change. There is generalized moderate cerebral volume loss causing [id number] ex vacuo dilatation of the ventricular system [...] in agreement with preliminary report made by electronic gluer [employer] Work[employer]. Creator:Ariana Connelly Date:Nov 05, 2014 01:36:56 Subject: No evidence of recent ischemia. 2014 [facility] Chest 1view DX EXAM: XR CHEST 1 [...] subsegmental atelectasis, otherwise no acute abnormality. 2014 [facility] Brain/Neck Stroke perfusion CTA CT ANGIOGRAM OF THE HEAD AND NECK AND CT PERFUSION DATE: 2014 at 7:07 p.m. Comparison studies: Outside imaging from [facility] stroke team 2014 at 5:55 p.m. [...] Dr. Morales EC, @ 1940 hours. 2014 [facility] Consultation Notes No Data Provided for This Section Discharge Summaries No Data Provided for This Section History and Physicals No Data Provided for This Section Vital Signs Vital Sign Value Date Comments Source BMI Calculated 20.57 03/02/2017 [facility] Weight 61.364 03/02/2017 [facility] Respitory Rate 16 03/02/2017 [facility] Heart Rate 65 03/02/2017 [facility] Systolic (mm Hg) 114 03/02/2017 [facility] Diastolic (mm Hg) 68 03/02/2017 [facility] Temperature Oral (F) 98.2 F 03/02/2017 [facility] Height 172.72 cm 03/02/2017 [facility] Temperature Oral (F) 97.6 F 11/06/2014 [facility] Heart Rate 72 11/06/2014 [facility] Systolic (mm Hg) 143 11/06/2014 [facility] Diastolic (mm Hg) 75 11/06/2014 [facility] Respitory Rate 18 11/06/2014 [facility] Systolic (mm Hg) 147 11/06/2014 [facility] Diastolic (mm Hg) 83 11/06/2014 [facility] Heart Rate 68 11/06/2014 [facility] Respitory Rate 18 11/06/2014 [facility] Temperature Oral (F) 97.1 F 11/06/2014 [facility] Temperature Oral (F) 98.6 F 11/06/2014 [facility] Heart Rate 57 11/06/2014 [facility] Respitory Rate 17 11/06/2014 [facility] Systolic (mm Hg) 153 11/06/2014 [facility] Diastolic (mm Hg) 82 11/06/2014 [facility] Height 172.72 cm 11/05/2014 [facility] BMI Calculated 26.23 11/05/2014 [facility] Weight 78.239 11/05/2014 [facility] Weight 79.091 2014 [facility] Encounters Location Location Details Encounter Type Encounter Number Reason For Visit Attending Provider ADM Date DC Date Status Source [facility] Inpatient [id number] BaljitNichelle Taye 2014 11/06/2014 [facility] Outpatient [id number] WILLAM PETERSON 06/07/2016 Active [facility] [place] OP Therapy Patients [id number] Albinoihao Nicholas 06/22/2016 07/22/2016 [facility] [place] Outpatient [id number] ALBINOIHAO NICHOLAS 07/14/2016 Active [facility] [place] OP Therapy Patients [id number] Albinoihao Nicholas 07/22/2016 08/21/2016 [facility] [place] Outpatient [id number] WILLAM PETERSON 08/09/2016 Active [facility] Outpatient [id number] WILLAM PETERSON 09/08/2016 Active [facility] [place] OP Therapy Patients [id number] Zhihao Nicholas 10/05/2016 2016 [facility] [place] [facility] [id number] Albinoihao Nicholas 11/08/2016 12/08/2016 [facility] [place] Outpatient [id number] ALBINOIHAO NICHOLAS 11/17/2016 Active [facility] [place] OP Therapy Patients [id number] Albinoihao Nicholas 12/08/2016 01/07/2017 [facility] [place] Outpatient [id number] ALBINOIHAO NICHOLAS 01/31/2017 Active [facility] Outpatient [id number] ALBINOIHAO NICHOLAS 03/02/2017 Active [facility] Outpatient [id number] Albinoihjina Peterson 03/02/2017 03/03/2017 [facility] Outpatient [id number] WILLAM PETERSON 05/04/2017 Active [facility] Primary Care [facility] Ambulatory Pre-Reg [id number] Willam Peterson 05/04/2017 05/04/2017 Medical Group [facility] Primary Care [facility] Phone Message [id number] 05/04/2017 05/06/2017 [facility] Procedures Procedure Code Date Perfomer Comments Source Cataract surgery [id number] 03/27/2013 [facility] , Angiogram [id number] 03/27/2009 [facility], Hernia repair [id number] [facility], Rotator cuff repair<sup>1</sup> [id number] aliviadamon tavarezsuzie benavides [facility] , Assessment and Plan Assessment and Plan Date [...] LDL > 100, normalize BP, d/c home [facility] stroke clinic follow up I [...] of care and prognosis Other Diagnosis: Code: 47200 LindyLeslieNichelle (Todd) MD [employer] Neurology Pager: [phone] Extracted from:Title: Clinical Document Author: Christine Leonard MD Date: 11/06/14 [facility]-STROKE NEUROLOGY DISCHARGE SUMMARY Name: Kerline Huang Date [...] fluent, comprehension compromised, repetition preserved, naming preserved 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 [facility] #[phone] PCP in 1 week Discharge Instructions: The patient received stroke education regarding signs and symptoms of stroke. They were instructed to call 911 if similar symptoms occurred again. The list of their medications on discharged was reviewed with the patient and all questions were answered. Mention critical home meds such as ASA, Statin. No PT/OT/Speech Therapy needs. 11/06/2014 [facility] Plan of Care No Data Provided for [...] No; Reg Smoking Cessation Counseling No 09/08/2016 Social History TypeResponse Substance Abuse Use: None. [...] No; Reg Smoking Cessation Counseling No 11/05/2014 [facility] Family History No Data Provided for This Section Advance Directives No Data Provided for This Section Functional Status No Data Provided for This Section
--- OUTSIDE RECORDS SUMMARY | 2020-02-28 13:41 | XMS REPORT | Continuity of Care Document ---
Author Author [facility] t Organization [facility] Address [address] [place] [address] Phone Unavailable Care Team Providers Care Clean Energy Policy Analyst Name Role Phone DO DWIGHT CABRAL PCP Riaz GREY Attphys Unavailable Willam Robledo Attphys Gregg Kothari Attphys Gregg Kothari Admphys Payers Payer Name Policy Type Policy Number Effective Date Expiration Date Cruz Lara Ppo [id number] 2005 00:00:00 [facility] Problems Condition Name Condition Details Condition Category Status Onset Date Resolution Date Last Treatment Date Treating Clinician Comments Source G81.94 G81. 94 Active 10/05/2016 [facility] [place] Diagnosis Active 2016-10-05 08:00:00 2016-12-08 11:57:00 Rufina Hopkins STROKE, LT SIDE STRO KE, LT SIDE Active 06/22/2016 [facility] [place] Diagnosis Active 2016-06-22 07:00:00 2016-07-29 10:43:00 Rufina Hopkins STROKE LEFT SIDE STRO KE LEFT SIDE Active 03/27/2016 [facility] [place] Diagnosis Active 2016-03-27 08:00:00 2016-09-29 16:38:00 Rufina Hopkins LEFT LEG WEAKNESS LEFT LEG WEAKNESS Active 03/27/2016 [facility] [place] Diagnosis Active 2016-03-27 08:00:00 2016-10-05 12:53:00 Rufina Hopkins CVA CVA Active 09/17/2015 [facility] Diagnosis Act brandon 2015-09-17 00:00:00 2016-06-14 23:12:00 M tyshawn Hopkins LEFT LEG/STROKE LEFT LEG/STROKE Active 08/13/2015 [facility] [place] Diagnosis Active 2015-08-13 08:00:00 2016-11-08 12:03:00 [facility] STROKE STRO KE Active 2014 [facility] Diagnosis Active 2014 00:00:00 2014-11-06 08:21:00 [facility] LIFE FLIGHT LIFE FLIGHT Active 2014 [facility] Diagnosis Active 2014 00:00:00 2014-11-14 10:05:00 [facility] Sepsis Problem Active [facility] Problem Active [facility] Hypertension Problem Active [facility] History of cerebrovascular accident (CVA) with residual deficit Problem Active [facility] Hyperlipidemia Problem Active [facility] Foot-drop (finding) Foot -drop (finding) Active Problem 08/11/2017 [facility] [place] Problem Active 2017-08-11 14:16:14 Rufina Hopkins Gout (disorder) Gout (disorder) Active [facility] [place] [facility] Active 2017-08-11 14:16:14 Al Hopkins 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) Active Problem 08/11/2017 [facility] Active 2017-08-11 14:16:14 Rufina Hopkins Left hemiplegia (disorder) Lef t hemiplegia (disorder) Active Problem 08/11/2017 [facility] [place] Problem Active 2017-08-11 14:16:14 Rufina Hopkins Mixed hyperlipidemia (disorder) Mixed hyperlipidemia (disorder) Active Problem 08/11/2017 [facility] [place] Problem Active 2017-08-11 14:16:14 Al Hopkins Recurrent major depressive episodes, moderate (disorde r) Recurrent major depressive episodes, moderate (disorder) Active Problem 08/11/2017 [facility] [place] Problem Active 2017-08-11 14:16:14 Rufina Hopkins Shoulder pain (finding) Shou lder pain (finding) Active Problem 08/11/2017 [facility] Problem Active 2017-08-11 14:16:14 Rufina Hopkins CVA CVA Active [facility] Diagnosis Active 2014-11-06 08:21:00 Rufina Hopkins STROKE LT SIDE STRO KE LT SIDE Active [facility] [place] Diagnosis Active 2016-07-24 16 :17:00 Rufina Hopkins Allergies, Adverse Reactions, Alerts Allergy Name Allergy Type Status Severity Reaction(s) Onset Date Inacti ve Date Treating Clinician Comments Source REINA Inhibitors REINA Inhibitors Active [facility] Social History Social Habit Start Date Stop Date Quantity Comments Source Social History 2014-11-05 06:14:25 2014-11-05 06:14:25 Rufina Hopkins Sex Ass[birth year] At [birth year] 00[birth year]:00 Male [facility] Medications Ordered Medication Name Filled Medication Name Start Date Stop Da te Current Medication? Ordering Clinician Indication Dosage Frequency Signature (SIG) Comments Components Source Cephalexin Monohydrate (Keflex) 500 Mg CAPSULE Cephale nathaly Monohydrate (Keflex) 500 Mg CAPSULE 2019-12-03 09:07:00 Yes 500 Every 12 Hours [facility] Hydrochlorothiazide (Esidrix*) 25 Mg TAB Hydrochloroth iazide (Esidrix*) 25 Mg TAB 2019-12-03 09:07:00 Yes 25 Daily [facility] Valsartan (Diovan) 80 Mg TAB Valsartan (Diovan) 80 Mg TAB 8 09:07:00 Yes 160 Daily [facility] Triamcinolone Acetonide 1 MG/ML Topical Cream 2017-05-05 06:31:1 7 Yes See Instructions, APPLY EXTERNALLY TO TH E AFFECTED AREA DAILY NEEDED, # 60 gm, 1 Refill(s), Pharmacy: [facility] [id number] [facility] Lisinopril 2014-11-06 14:00:00 No 10 mg, Route: PO, Drug form: TAB, Daily, Dosing Weight 78.239, kg, Start date: 11/06/14 9:00:00, Duration: 30 day, Stop date: 12/05/14 9:00:00 [facility] Her gunter losartan 25 mg oral tablet 2014-11-06 13:44:00 Yes 25 mg = 1 tab, PO, Daily, # 90 tab, 0 Refill(s) Layo Hopkins lisinopril 20 mg oral tablet 2014-11-06 13:10:00 No 20 mg, PO, Daily, # 90 tab, 2 Refill(s) Rufina navarro Aspirin 81 MG Enteric Coated Tablet 2014-11-06 12:11:00 Yes 81 mg = 1 tab, PO, Daily, # 30 tab, 0 [facility]ill[facility]) [facility] mg oral tablet 2014-11-06 12:11:00 No 10 mg = 1 tab, PO, Daily, # 30 tab, 0 Refill(s) Layo Hopkins atorvastatin 80 mg oral tablet 2014-11-06 12:11:00 Yes 80 mg = 1 tab, PO, Bedtime, # 30 tab, 0 Refill(s) [facility] atorvastatin 2014-11-06 02:00:00 No 80 mg, Route: PO, Drug form: TAB, Bedtime, Dosing Weight 78.239, kg, Start date: 11/05/14 21:00:00, Duration: 30 day, Stop date: 12/04/14 21:00:00 [facility] orial Banks heparin 2014-11-05 23:00:00 No Notes: porci ne heparin [facility] Aspirin 2014-11-05 23:00:00 No Notes: Do not crush or chew. (Same As: Ecotrin) [facility] Zyloprim 2014-11-05 22:04:00 No Notes: (Lukas e as: Zyloprim) [facility] Allopurinol 2014-11-05 19:12:00 No Notes: ( Same as: Zyloprim) [facility] Lisinopril 2014-11-05 15:33:00 No Notes: (Same as: Prinivil, Zestril) [facility] lansoprazole 2014-11-05 14:00:00 No 30 mg, Route: NG, Drug form: SUSP, Daily, Dosing Weight 79.091, kg, Start date: 11/05/14 9:00:00, Duration: 30 day, Stop date: 12/04/14 9:00:00 Al cisneros Banks pantoprazole 2014-11-05 14:00:00 No 40 mg, Route: IVP, Drug form: INJ, Daily, Dosing Weight 79.091, kg, Start date: 11/05/14 9:00:00, Duration: 30 day, Stop date: 12/04/14 9:00:00 Layo capps [address] Folic Acid 2014-11-05 14:00:00 No Notes: (S arlene as: Folvite) [facility] Thiamine 2014-11-05 14:00:00 No Notes: (Lukas e As: Vitamin B1) [facility] multivitamin 2014-11-05 14:00:00 No Notes: (Same as:Thera) Take with food. [facility] Famotidine 2014-11-05 02:00:00 No Notes: (S arlene as: Pepcid) [facility] Docusate 2014-11-05 02:00:00 No 100 mg, 1 cap, Route: PO, Drug form: CAP, Q12H, Dosing Weight 79.091, kg, Start date: 11/04/14 21:00:00, Duration: 30 day, Stop date: 12/04/14 9:00:00 Layo Hopkins Lipitor 2014-11-05 02:00:00 No Notes: Same as Lipitor [facility] allopurinol 300 mg oral tablet 2014-11-05 01:01:00 Yes 300 mg = 1 tab, PO, Daily, 0 Refill(s) [facility] Her gunter Regular Insulin, Human 100 UNT/ML Injectable Solution 2014-11-05 00:36:00 No 60 units) [address] able for 28 days at room temperature Expires in days from [facility]% Syringe 2014-11-05 00:36:00 No 25 gm, 50 mL, Route: IVP, Drug Form: INJ, Dosing Weight 79.091, kg, PRN, PRN Abnormal Lab Result, Start date: 11/04/14 19:36:00, Duration: 30 day, Stop date: 12/04/14 19:35:00 [facility] iodixanol 2014-11-05 00:32:00 No Special Instructions: Dose = 2.2ml/kg, Max dose = 150ml -- "To be infused by Radiology Staff ONLY" [facility] enalapril 2014-11-05 00:02:00 No Notes: (Sa me as: Vasotec-IV) [facility] Labetalol 2014-11-05 00:02:00 No 105 mmHg, Priority: Routine, Start date: 11/04/14 19:02:00, Duration: 3 doses or times, Stop date: Limited # of times [facility] Acetaminophen 2014-11-05 00:02:00 No Notes: Do not exceed 4 gm/day. (Same as: Tylenol) [facility] Bisacodyl 2014-11-05 00:02:00 No Notes: (Same As: Dulcolax, Bisco-Lax) [facility] Saline Flush 0.9% 2014 23:42:00 No Notes: (Same as: BD Posiflush) [facility] Allopurinol Allopurinol Yes 300 Bedtime [facility] Aspirin Aspirin Yes 81 Daily [facility] Atorvastatin Calcium Atorvastatin Calcium Yes 40 Bedtime [facility] Baclofen Baclofen Yes 10 Twice A Day [facility] Carvedilol Carvedilol Yes 6.25 Bedtime [facility] Donepezil Hcl Donepezil Hcl Yes 10 Daily [facility] Fluoxetine Hcl Fluoxetine Hcl Yes 20 Daily [facility] Valsartan/Hydrochlorothiazide (Diovan Hct 160-25 Mg Ta blet) 1 Each TABLET Valsartan/Hydrochlorothiazide (Diovan Hct 160-25 Mg Tablet) 1 Each TABLET 2019-11-30 00:00:00 No Daily [facility] Mv-Mn/Fa/Coq10/Lycopene/Lutein (Theragran-M Premier 50 + Caplet) 1 Each TABLET Mv-Mn/Fa/Coq10/Lycopene/Lutein (Theragran-M Premier 50+ Caplet) 1 Each TABLET 2013-11-26 00:00:[address] No [address] [facility] Vital Signs Vital Name Observation Time Observation Value Comments Source Body Temperature 2019-12-03 11:50:00 97.4 [degF] [facility] Weight 2019-12-02 00:40:00 167.13 [lb_av] [facility] BMI (Body Mass Index) 2019-12-02 00:40:00 25.4 kg/m2 [facility] BMI Calculated 2017-03-02 19:34:00 [facility] Weight 2017-03-02 19:34:00 [facility] Respitory Rate 2017-03-02 19:34:00 [facility] Heart Rate 2017-03-02 19:34:00 [facility] Systolic (mm Hg) 2017-03-02 19:34:00 Al rial Banks Diastolic (mm Hg) 2017-03-02 19:34:00 [facility] Temperature Oral (F) 2017-03-02 19:34:00 98.2 F [facility] Height 2017-03-02 19:34:00 172.72 cm [facility] Temperature Oral (F) 2014-11-06 12:46:00 97.6 F [facility] Heart Rate 2014-11-06 12:46:00 [facility] Systolic (mm Hg) 2014-11-06 12:46:00 Al [facility] Diastolic (mm Hg) 2014-11-06 12:46:00 Mem [facility] Respitory Rate 2014-11-06 12:46:00 [facility] Systolic (mm Hg) 2014-11-06 09:05:00 Al rial [facility] Diastolic (mm Hg) 2014-11-06 09:05:00 [facility] [address] Heart Rate 2014-11-06 09:05:00 [facility] Respitory Rate 2014-11-06 09:05:00 [facility] Temperature Oral (F) 2014-11-06 09:05:00 97.1 F [facility] Temperature Oral (F) 2014-11-06 04:38:00 98.6 F [facility] Heart Rate 2014-11-06 04:38:00 [facility] Respitory Rate 2014-11-06 04:38:00 [facility] [address] Systolic (mm Hg) 2014-11-06 04:38:00 Al [facility] Diastolic (mm Hg) 2014-11-06 04:38:00 [facility] [address] Height 2014-11-05 06:00:00 172.72 cm [facility] BMI Calculated 2014-11-05 06:00:00 Erlinda Rasmussen Weight 2014-11-05 06:00:00 [facility] [address] Weight 2014 23:31:00 [facility] Procedures Procedure Date / Time Performed Performing Clinician Jeannette wesley Cataract surgery 2013-03-27 00:00:00 [facility] 2009-03-27 00:00:00 [facility] gunter Hernia repair [facility] Rotator cuff repair<sup>1</sup> [facility] Plan of Care Planned Activity Planned Date Details Comments Source Instructions Urinary Tract Infection - [facility] Encounters Start Date/Time End Date/Time Encounter Type Admission Type Att[facility] Care Department Encounter ID Source 2019-11-30 17:53:00 2019-12-03 15:46:00 Discharged Inpatient (obs) AMBER GREY [facility] [id number] [facility] 2017-05-04 16:31:00 2017-05-05 23:59:59 Outpatient [facility] [id number] 2017-05-04 11:00:00 2017-05-04 11:00:00 Outpatient Willam Robledo [facility] [id number] 2017-05-04 11:00:00 2017-05-04 11:00:00 Outpatient Willam Robledo [facility] [id number] 2017-03-02 13:30:00 2017-03-02 23:59:59 Outpatient Willam Robledo [facility] [id number] 2016-12-08 11:55:00 2017-01-06 23:59:00 Outpatient [place] Robledo [id number] 2016-11-08 12:00:00 2016-12-07 23:59:00 Outpatient Montana Robledo [id number] 2016-10-05 12:50:00 2016-11-03 23:59:00 Outpatient Montana Robledo [id number] 2016-07-22 11:00:00 2016-08-20 23:59:00 Outpatient Montana Robledoao [id number] 2016-06-22 09:20:00 2016-07-21 23:59:00 Outpatient Montana Robledo ihao [id number] 2014 18:23:00 2014-11-06 11:40:00 Outpatient Gregg Kothari [facility] [id number] Results Test Description Test Time Test Comments Results Result Comments Source Serum or plasma sodium measurement (moles/volume) 2019-12-02 08:00:00 Test Item Sodium Level (test code = 2951-2) 137 136-145 [facility] potassium [facility] (moles/volume)2019-12-02 08:00:00* Test Item Value Reference Range Interpretation Comments Potassium Level (test code = 2823-3) 3.8 3.5-5.1 [facility] chloride measurement (moles/volume)2019-12-02 08:00:00* Test Item Value Reference Range Interpretation Comments Chloride Level (test code = 2075-0) 106 98-107 [facility] plasma carbon dioxide, total measurement (moles/volume)2019-12-02 08:00:00* Test Item Value Reference Range Interpretation Comments Carbon Dioxide Level (test code = 2028-9) 19 22-29 [facility] anion [id number] 08:00:00* Test Item Value Reference Range Interpretation Comments Anion Gap (test code = 69774-5) 15.8 8-16 [facility] urea nitrogen measurement (mass/volume)2019-12-02 08:00:00* Test Item Value Reference Range Interpretation Comments Blood Urea Nitrogen (test code = 3094-0) 13 7-26 [facility] plasma creatinine measurement (mass/volume)2019-12-02 08:00:00* Test Item Value Reference Range Interpretation Comments Creatinine (test code = 2160-0) 0.78 0.72-1.25 [facility] plasma urea nitrogen/creatinine mass [id number] 08:00:00* Test Item Value Reference Range Interpretation Comments BUN/Creatinine Ratio (test code = 3097-3) 17 6- [facility] glomerular filtration rate (GFR) [id number] 08:00:00* Test Item Value Reference Range Interpretation Comments Estimat Glomerular Filtration Rate (test code = 285882571) > 60 >60 Ranges were taken from the National Kidney Disease Education Program and the [facility] Foundation literature.Reference ranges:60 or greater: Vcsffb17-09 ( for 3 consecutive months): Chronic kidney disease 15 or less: Kidney failure[facility] SouthGlucose [id number] 08:00:00* Test Item Value Reference Range Interpretation Comments Glucose Level (test code = LZX7315) 74 74-118 [facility] plasma calcium measurement (mass/volume)2019-12-02 08:00:00* Test Item Value Reference Range Interpretation Comments Calcium Level (test code = 55672-8) 8.5 8.4-10.2 [facility] SouthProthrombin time (PT) in platelet poor plasma by coagulation [id number] 11:46:00* Test Item Value Reference Range Interpretation Comments Prothrombin Time (test code = 5902-2) 13.7 11.9-14.5 [facility]R in Platelet poor plasma by Coagulation [id number] 11:46:00* Test Item Value Reference Range Interpretation Comments Prothromb Time International Ratio (test code = 6301-6) 1.00 Oral Anticoagulant Therapy INR Values:1. Low Intensity Therapy 1.5 - 2.02 . Moderate Intensity Therapy 2.0 - 3.03. High Intensity Therapy(1) 2.5 - 3. 54. High Intensity Therapy(2) 3.0 - 4.05. Panic Value INR > 5.0 [facility] SouthActivated partial thromboplastin time (aPTT) in platelet poor plasma by coagulation [id number] 11:46:00* Test Item Value Reference Range Interpretation Comments Activated Partial Thromboplast Time (test code = 67524-0) 29.9 23.8-35.5 [facility] SouthUrine color [id number] 10:40:00* Test Item Value Reference Range Interpretation Comments Urine Color (test code = 5778-6) YELLOW YELLOW [facility] SouthUrine [id number] 10:40:00* Test Item Value Reference Range Interpretation Comments Urine Clarity (test code = 24455-9) SL CLOUDY CLEAR [facility] gravity of Urine by Test strip 2019-12-01 10:40:00* Test Item Value Reference Range Interpretation Comments Urine Specific [place] (test code = 5811-5) 1.020 1.010-1.02 5 [facility] pH measurement by automated test [id number] 10:40:00* Test Item Value Reference Range Interpretation Comments Urine pH (test code = 91046-1) 6.5 5-7 [facility] SouthUrine leukocyte esterase detection by [id number] 10:40:00* Test Item Value Reference Range Interpretation Comments Urine Leukocyte Esterase (test code = 5799-2) SMALL NEGATIVE [facility] SouthUrine nitrite [id number] 10:40:00* Test Item Value Reference Range Interpretation Comments Urine Nitrite (test code = 16780-0) NEGATIVE NEGATIVE [facility] South[facility] protein measurement by test strip (mass/volume)2019-12-01 10:40:00* Test Item Value Reference Range Interpretation Comments Urine Protein (test code = 5804-0) NEGATIVE NEGATIVE [facility] glucose [id number] 10:40:00* Test Item Value Reference Range Interpretation Comments Urine Glucose (UA) (test code = 2349-9) NEGATIVE NEGATIVE [facility] South[facility]rine ketones detection by automated test [id number] 10:40:00* Test Item Value Reference Range Interpretation Comments Urine Ketones (test code = 24850-0) NEGATIVE NEGATIVE [facility] South[facility]rine urobilinogen measurement by test strip (mass/volume)2019-12-01 10:40:00* Test Item Value Reference Range Interpretation Comments Urine Urobilinogen (test code = 10753-3) 2.0 0.2-1 [facility] total bilirubin measurement (mass/volume)2019-12-01 10:40:00* Test Item Value Reference Range Interpretation Comments Urine Bilirubin (test code = 1978-6) NEGATIVE NEGATIVE [facility] erythrocytes [id number] 10:40:00* Test Item Value Reference Range Interpretation Comments Urine Blood (test code = 39596-2) LARGE NEGATIVE [facility] SouthAutomated urine sediment leukocyte count by microscopy (number/high power field)2019-12-01 10:40:00* Test Item Value Reference Range Interpretation Comments Urine WBC (test code = 5821-4) >50 0-5 [facility] SouthErythrocytes detection in urine sediment by light [id number] 10:40:00* Test Item Value Reference Range Interpretation Comments Urine RBC (test code = 87440-4) 21-50 0-5 [facility] SouthBacteria detection in urine sediment by light [id number] 10:40:00* Test Item Value Reference Range Interpretation Comments Urine Bacteria (test code = 47236-3) RARE NONE [facility] SouthEpithelial cells detection in urine sediment by light [id number] 10:40:00* Test Item Value Reference Range Interpretation Comments Urine Epithelial Cells (test code = 37587-0) FEW NONE [facility] SouthBlood leukocytes automated count (number/volume)2019-12-01 06:34:00* Test Item Value Reference Range Interpretation Comments White Blood Count (test code = 6690-2) 8.61 4.8-10.8 [facility] erythrocytes automated count (number/volume)2019-12-01 06:34:00* Test Item Value Reference Range Interpretation Comments Red Blood Count (test code = 789-8) 3.54 4.3-5.7 [facility]Blood hemoglobin measurement (moles/volume)2019-12-01 06:34:00* Test Item Value Reference Range Interpretation Comments Hemoglobin (test code = 41310-1) 11.0 14.0-18.0 [facility] SouthAutomated blood hematocrit (volume fraction)2019-12-01 06:34:00* Test Item Value Reference Range Interpretation Comments Hematocrit (test code = 4544-3) 34.6 38.2-49.6 [facility] SouthAutomated erythrocyte mean corpuscular [id number] 06:34:00* Test Item Value Reference Range Interpretation Comments Mean Corpuscular Volume (test code = 787-2) 97.7 81-99 [facility] SouthAutomated erythrocyte mean corpuscular hemoglobin (mass per erythrocyte)2019-12-01 06:34:00* Test Item Value Reference Range Interpretation Comments Mean Corpuscular Hemoglobin (test code = 785-6) 31.1 28-32 [facility] SouthAutomated erythrocyte mean corpuscular hemoglobin concentration measurement (mass/volume)2019-12-01 06:34:00* Test Item Value Reference Range Interpretation Comments Mean Corpuscular Hemoglobin Concent (test code = 786-4) 31.8 31-35 [facility] SouthRDW [id number]-[id number] 06:34:00* Test Item Value Reference Range Interpretation Comments Red Cell Distribution Width (test code = 59039-0) 13.9 11.7 -14.4 [facility] SouthAutomated blood platelet count (count/volume)2019-12-01 06:34:00* Test Item Value Reference Range Interpretation Comments Platelet Count (test code = 777-3) 185 140-360 [facility] SouthAutomated blood segmented neutrophil count as percentage of total verjrhrgwk6541-96-76 06:34:00* Test Item Value Reference Range Interpretation Comments Neutrophils (%) (Auto) (test code = 36102-1) 75.2 38.7-80.0 [facility] SouthAutomated blood lymphocyte count as percentage ot total skyzjlljnj4022-06-37 06:34:00* Test Item Value Reference Range Interpretation Comments Lymphocytes (%) (Auto) (test code = 736-9) 14.9 18.0-39.1 [facility] SouthAutomated blood monocyte count as percentage of total [id number] 06:34:00* Test Item Value Reference Range Interpretation Comments Monocytes (%) (Auto) (test code = 5905-5) 8.5 4.4-11.3 [facility] SouthAutnovant [facility] blood eosinophil count as percentage of total ufnsxcdhhv6102-11-72 06:34:00* Test Item Value Reference Range Interpretation Comments Eosinophils (%) (Auto) (test code = 713-8) 1.0 0.0-6.0 [facility] basophil count as percentage of total voihrzowhy1045-70-93 06:34:00* Test Item Value Reference Range Interpretation Comments Basophils (%) (Auto) (test code = 706-2) 0.2 0.0-1.0 [facility] SouthFluoroscopic procedure less than one hour nfnvqyyb9082-19-42 06:34:00* Test Item Value Reference Range Interpretation Comments IM GRANULOCYTES % (test code = IM GRANULOCYTES %) 0.2 0.0- 1.0 [facility] SouthAutom[facility] blood neutrophil count 2019-12-01 06:34:00* Test Item Value Reference Range Interpretation Comments Neutrophils # (Auto) (test code = 751-8) 6.5 2.1-6.9 [facility] lymphocytes count (number/volume) 2019-12-01 06:34:00* Test Item Value Reference Range Interpretation Comments Lymphocytes # (Auto) (test code = 57156-7) 1.3 1.0-3.2 [facility] SouthBlood monocytes automated count (number/volume)2019-12-01 06:34:00* Test Item Value Reference Range Interpretation Comments Monocytes # (Auto) (test code = 742-7) 0.7 0.2-0.8 [facility] South[facility] blood eosinophil count 2019-12-01 06:34:00* Test Item Value Reference Range Interpretation Comments Eosinophils # (Auto) (test code = 711-2) 0.1 0.0-0.4 [facility] South[facility] blood basophil count (count/volume)2019-12-01 06:34:00* Test Item Value Reference Range Interpretation Comments Basophils # (Auto) (test code = 704-7) 0.0 0.0-0.1 [facility] SouthFluoroscopic procedure less than one hour smiaqgcv5510-96-78 06:34:00* Test Item Value Reference Range Interpretation Comments Absolute Immature Granulocyte (auto (angie t code = Absolute Immature Granulocyte (auto) 0.02 0-0.1 [facility] total bilirubin measurement (mass/volume)2019-12-01 06:34:00* Test Item Value Reference Range Interpretation Comments Total Bilirubin (test code = 1975-2) 0.5 0.2-1.2 [facility] SouthFluoroscopic procedure less than one hour miqrbmpk9352-81-58 06:34:00* Test Item Value Reference Range Interpretation Comments Aspartate Amino Transf (AST/SGOT) (test code = Aspartate Amino Transf (AST/SGOT)) 31 5-34 [facility]ere[facility] or plasma alanine aminotransferase measurement (enzymatic activity/volume)2019-12-01 06:34:00* Test Item Value Reference Range Interpretation Comments Alanine Aminotransferase (ALT/SGPT) (test code = 1742-6) 17 0-55 [facility]ere[facility] or plasma protein measurement (mass/volume)2019-12-01 06:34:00* Test Item Value Reference Range Interpretation Comments Total Protein (test code = 2885-2) 6.1 6.5-8.1 [facility]ere[facility] or plasma albumin measurement (mass/volume)2019-12-01 06:34:00* Test Item Value Reference Range Interpretation Comments Albumin (test code = 1751-7) 3.4 3.5-5.0 [facility] SouthPlasma globulin measurement (mass/volume) 2019-12-01 06:34:00* Test Item Value Reference Range Interpretation Comments Globulin (test code = 48399-7) 2.7 2.3-3.5 [facility]ererum or plasma albumin/globulin mass xtvlg1309-73-59 06:34:00* Test Item Value Reference Range Interpretation Comments Albumin/Globulin Ratio (test code = 1759-0) 1.3 0.8-2.0 [facility]ererum or plasma alkaline phosphatase measurement (enzymatic activity/volume)2019-12-01 06:34:00* Test Item Value Reference Range Interpretation Comments Alkaline Phosphatase (test code = 6768-6) 71 40-150 [facility] SouthBlood lvpokhx2468-53-04 17:03:00* Test Item Value Reference Range Interpretation Comments Blood Culture (test code = 72758374) NO GROWTH AFTER 48 HOURS [facility] SouthBacterial urine rlpvdwi1287-40-35 16:50:00* Test Item Value Reference Range Interpretation Comments Urine Culture (test code = 630-4) ESCHERICHIA COLI [facility] SouthCXR 1 VEW - RQXZ7094-42-26 16:39:00 [facility] [address] [address] Patient Name: KERLINE MORAN MR #: [id number] : 1945 Age/Sex: 74/M Req #: [id number] Adm Physician: Ordered by: AMBER GREY MD Report #: [id number] [facility] Room/Bed: Procedure: [id number] HOPD/CXR 1 VEW - [facility] Exam Date: 11/30/19 Exam Time: 1637 REPORT STATUS: Signed EXAMINATION: CXR 1 [facility] INDICATION: fever COMPARISON: None FINDINGS : AP view TUBES and LINES: None. . LUNGS/PLEURA: Lung s are well inflated. There is no evidence of pneumonia or pulmonary edema.. T here is no pleural effusion or pneumothorax. HEART AND MEDIASTINUM: The ca rdiomediastinal silhouette is unremarkable. BONES AND SOFT TISSUES: No acute osseous lesion. Soft tissues are unremarkable. UPPER ABDOMEN: No free air under the diaphragm. IMPRESSION: No acute thoracic abnormal ity. Signed by: Evgeny Avery MD on 11/30/2019 4:39 PM Dictate d By: EVGENY AVERY MD 1639 COPY TO: Balwinder GREY MD FXMLZK6559-45-72 13:15:32615Erbjwqor HermannSPECIAL CHEMISTRY 2014-11-06 13:15:005.8[facility] YuhpnajZOCMNBSXRUZU0696-46-52 08:55:0014.1 [facility] CcozmhhQEMTCMTZXVEB9086-31-76 08:55:001.1[facility] HermannELECTROLYTES 2014-11-06 08:55:0057[facility] TxbpzhtJZJCIUAUFQZO9220-51-94 08:55:0026[facility] XonillnFRPJHUCVPMMW3895-37-87 08:55:0055[facility] DzfpflrYYAUFHCWFEZB0605-90-58 08:55:004.0[facility] BnmdhpqCSCPKATQQJND8659-72-27 08:55:004.1[facility] IGTTIIVLWACL3591-34-30 08:55:008[facility] SkvawuaMUAIXWHHGQYY1742-14-20 08:55:00 104[facility] SykextsVCGKYBKNDLMN2104-16-26 08:55:42614Emhswrjm Sandeep AJTGCFLEPSVV1085-24-76 08:55:001.1[facility] CmkhzgqNBLGPYYRJWFP1151-58-21 08:55:001.2[facility] SrolhlrCRAJRRGSSMWX7260-22-97 08:55:007[facility] EJFVDOUGDXUV3161-62-31 08:55:003.2[facility] XxpgbqjCWWHCJNFAMUZ2834-01-36 08:55:0027[facility] PthecmpPGBEFQXFKOZG6598-34-64 08:55:10194Mobkpbsd Sandeep RZLBWCTZIKJK7304-15-66 08:55:007.2[facility] IfgzngfKWREMBFMRPIX8890-47-62 08:55:008.9[facility] YqxqphkTDIGSLPPMZXC7306-72-14 08:55:0068[facility] HermannCHEM LYDZS2653-08-88 08:17:0076[facility] HermannCHEM FHPPF7895-09-24 08:17:008.7 [facility] HermannCHEM QDZFJ9288-90-88 08:17:0020[facility] HermannCHEM PANEL 2014-11-05 08:17:0016.7[facility] HermannCHEM TYUKE8571-26-39 08:17:001.0[facility] HermannCHEM XUGXG8730-24-00 08:17:91979Zpuvpboa HermannCHEM GFIFW8439-90-62 08:17:006[facility] HermannCHEM KQDQL5463-73-08 08:17:007.6[facility] HermannCHEM NRSRW9559-73-62 08:17:004.1[facility] HermannCHEM CEKSP8295-89-48 08:17:85685 [facility] HermannCHEM KWZGR2195-73-09 08:17:006[facility] HermannCHEM PANEL 2014-11-05 08:17:003.7[facility] HermannCHEM NINYM2252-04-20 08:17:76652Dlridjia HermannCHEM PZNMP7738-35-27 08:17:0044[facility] HermannCHEM LMWQD2725-45-40 08:17:0053[facility] HermannCHEM YWORD9126-74-57 08:17:000.9[facility] HermannCHEM ZEFZX0925-09-49 08:17:0031[facility] HermannCHEM WSQJP0277-26-14 08:17:003.5 [facility] HermannCHEM VEWCA1217-82-70 08:17:001.2[facility] HermannCHEM PANEL 2014-11-05 08:17:000.2[facility] SjppjwaOVERQLZILF1813-92-12 08:17:001.83[facility] QslxpstORFEDXVRIL6893-46-80 08:17:00* Test Item Value Reference Range Interpretation Comments PT (test code = PT) 21.6 s 12.0-14.7 [facility] UugihrrOHECXNWJEW3178-66-03 08:17:00* Test Item Value Reference Range Interpretation Comments PTT (test code = PTT) 37.1 s 22.9-35.8 [facility] FykbvogXRRTZOYVJO7270-18-77 08:17:0042.6[facility] HermannHEMATOLOGY 2014-11-05 08:17:004.32[facility] BhjibwrIRBQPLGRCQ6529-07-47 08:17:0011.5[facility] WwmktabPYJFBAKDIG9907-74-40 08:17:0014.1[facility] YgiutklVTBNGWBMUN4131-67-70 08:17:0013.0[facility] KpmrlipXNLNDBPIXN9235-77-20 08:17:007.6[facility] SQQGUUVPET6382-87-33 08:17:49944Uxifhtfv SeeogdgRMTPJRCGKR1426-68-35 08:17:00 33.1[facility] XpqcaqjZPMYDCWNLD7202-63-19 08:17:00* Test Item Value Reference Range Interpretation Comments MCH (test code = MCH) 32.6 pg 27.0-31.0 [facility] QrmjxofLBYPGEGLOW6597-18-53 08:17:0098.6[facility] HermannHEMATOLOGY 2014-11-05 08:17:003[facility] AcifjnyFTXASTSXZI1021-00-01 08:17:001.1[facility] RlwyotuHYXSNOYNAN5215-09-97 08:17:001.3[facility] HmwemsqSJBCEKLCGG7794-88-91 08:17:009.1[facility] QjwqwspGUZQKLMSKT8358-07-10 08:17:0011.0[facility] VMLVTDLOWX6512-83-20 08:17:0079.2[facility] LosgnaeLIOQYHJUTP5009-30-97 08:17:00 0.2[facility] DjrspidCUASRZRFKP9201-61-32 08:17:000.3[facility] HermannHEMATOLOGY 2014-11-05 08:17:009.3[facility] AnkchbyHLEWGP8002-55-31 06:25:51805Azjpllfo FjgggxcTECTHW5614-87-10 06:25:0026[facility] XyngqxsROKIRB5032-44-72 06:25:0072 [facility] LzoplusHUZYSQ2910-48-11 06:25:002.85[facility] TvznwvdZSLXWN8757-07-00 06:25:16155Ddqizwuk ZekcdjkFYOLCW8876-09-83 06:25:65104Jrivzecr HermannDRUG ANOHSR8693-68-80 02:27:00Negative *NA*(11/04/14 9:27 PM)[facility] HermannDRUG RPFKUC9122-45-13 02:27:00Negative *NA*(11/04/14 9:27 PM)[facility] HermannDRUG BRYOPI7466-58-27 02:27:00Negative *NA*(11/04/14 9:27 PM)[facility] HermannDRUG WIFQAH5694-62-13 02:27:00See Note (11/04/14 9:27 PM)[facility] HermannDRUG SCREEN 2014-11-05 02:27:00Positive *ABN*(11/04/14 9:27 PM)[facility] HermannDRUG SCREEN 2014-11-05 02:27:00Negative *NA*(11/04/14 9:27 PM)[facility] HermannDRUG SCREEN 2014-11-05 02:27:00Negative *NA*(11/04/14 9:27 PM)[facility] HermannDRUG SCREEN 2014-11-05 02:27:00Negative *NA*(11/04/14 9:27 PM)[facility] HermannURINE AND STOOL 2014-11-05 02:27:000.2[facility] HermannURINE AND QOUOY7499-33-93 02:27:00Negative (11/04/14 9:27 PM)[facility]annURINE AND VHWOR4980-61-71 02:27:00Negative (11/04/14 9:27 PM)[facility]annURINE AND IEGWF9842-78-90 02:27:001[facility] HermannURINE AND CQSIC5612-20-30 02:27:00Yellow *NA*(11/04/14 9:27 PM)[facility]annURINE AND LTAUW7369-59-83 02:27:00* Test Item Value Reference Range Interpretation Comments UA pH (test code = UA pH) 6.0 1 5.0-8.0 [facility]annURINE AND VHLFX6031-53-37 02:27:00* Test Item Value Reference Range Interpretation Comments UA Spec Grav (test code = UA Spec Grav) 1.010 1 [facility]annUR[facility] AND APKGE7604-05-47 02:27:00Clear (11/04/14 9:27 PM) [facility]annUR[facility] AND YKUHE4430-48-06 02:27:00Negative *NA*(11/04/14 9:27 PM) [facility]annUR[facility] AND JNZOY4514-25-50 02:27:00Large *ABN*(11/04/14 9:27 PM) [facility] AND WUHLE1825-41-57 02:27:00Negative *NA*(11/04/14 9:27 PM) [facility]annUR[facility] AND IYEOC1829-42-55 02:27:00Negative (11/04/14 9:27 PM) [facility] HermannCHEM DFIRD9045-31-97 00:01:0076Mem[facility] HermannCHEM PANEL 2014-11-05 00:01:001.0[facility] HermannCARDIAC NGMIWLC8241-94-11 23:50:001.1 [facility] HermannCARDIAC CPHGHZC7081-00-71 23:50:003.2[facility] HermannCARDIAC CHRBLNG3577-25-74 23:50:18842Ppsosiea HermannCARDIAC IYGCMKC0266-18-69 23:50:00< 0.02[facility] IvjnkzuCKBBYOPOBADW5331-53-92 23:50:0022.1[facility] RILKQQIRLPMY4960-63-68 23:50:004.1[facility] HifqcghFPFUNXLMGNFW6341-10-60 23:50:009.2[facility] DsusenbDVNYGHMKHMNB6289-51-51 23:50:82814Fxnmcsks Banks QXZHFTLUGIPS8402-08-89 23:50:0016[facility] AifqmnmMKNIUQSMIMGG2473-35-21 23:50:00 207[facility] CzuxqnrHBSOBYIPIRQW5865-82-40 23:50:007[facility] HermannELECTROLYTES 2014 23:50:001.3[facility] DsuidgpGEVBBVHHNAIV9133-28-57 23:50:02508Zwzzkdpl SssvswvBEDYKZLEUZ5600-26-12 23:50:000.3[facility] YgkwajvQAICLGBALV9211-72-27 23:50:003.7[facility] MiqcsocPRGOBNYSEF4632-28-89 23:50:000.2[facility] FWIZFEKTDG2958-02-04 23:50:0012.5[facility] EokirazTARPUVXCPM0645-67-18 23:50:00 5.7[facility] YmdmkteIZXMCLEVNR1903-53-52 23:50:001+ *ABN*(11/04/14 6:50 PM) [facility] GocuelbNQRFHLUYDT7689-97-73 23:50:000.5[facility] HermannHEMATOLOGY 2014 23:50:000.8[facility] JoharjnKUWBAWAIOX4997-73-19 23:50:0090.1[facility] HtybeifTWFBWCOEZB4865-54-95 23:50:00* Test Item Value Reference Range Interpretation Comments PTT (test code = PTT) 23.5 s 22.9-35.8 [facility] AtdofczZQFXFORIYH4654-67-23 23:50:001.24[facility] HermannHEMATOLOGY 2014 23:50:00* Test Item Value Reference Range Interpretation Comments PT (test code = PT) 15.7 s 12.0-14.7 [facility] NnurcrwVNWQJJZSJJ1333-14-34 23:50:0043.1[facility] HermannHEMATOLOGY 2014 23:50:72711.2[facility] UahtvpwWTNINFIVGX1220-08-58 23:50:007.4[facility] NbsciuzQQZFFAMDBY4787-97-89 23:50:44242Ekwbyjfb GmycgcgAIZKWRDFVS1172-38-73 23:50:0013.9[facility] RpftlpiBYFKQSETFD2154-94-42 23:50:00* Test Item Value Reference Range Interpretation Comments MCH (test code = MCH) 32.8 pg 27.0-31.0 [facility] WoaszbrJVLSEAAYHT0217-22-63 23:50:0032.8[facility] HermannHEMATOLOGY 2014 23:50:0013.1[facility] IhdadtnOZBZYHFTTA3268-82-47 23:50:004.30[facility] RvsmpqpYNQZEPEOAL1675-95-63 23:50:0014.1[facility] Sandeep
--- NOTE | 2020-02-28 14:44 | Diagnostic Imaging Report ---
Examination: CT BRAIN WO History:Fall Comparison studies:None Technique: Axial images were obtained from the skull base to the vertex. Coronal and sagittal images reconstructed from the axial data. Dose modulation, iterative reconstruction, and/or weight based adjustment of the mA/kV was utilized to reduce the radiation dose to as low as reasonably achievable. Intravenous contrast: None Findings: Scalp: No abnormalities. Bones: No fractures, blastic or lytic lesions. Brain sulci: Generalized volume loss for age. Ventricles: No hydrocephalus. Extra-axial space: No abnormalities. Parenchyma: There are confluent (right worse on left) areas of hypoattenuation in the periventricular and subcortical white matter, nonspecific . Chronic lacunar infarcts are demonstrated in the anterior left thalamus, left putamen. There is an encephalomalacic cavity in the right subinsular region that could be from prior vascular insult and results in Wallerian degeneration of the right cerebral peduncle. No masses, hemorrhage, or acute or chronic cortical based vascular insults. Sellar/suprasellar region: No abnormalities. Craniocervical junction: Patent foramen magnum. No Chiari one malformation. Incidental findings: None. Impression: No acute intracranial abnormality. Chronic vascular insults/infarcts, as above. Chronic microvascular ischemic change. Generalized volume loss. Signed by: Dr. Marine Ring M.D. on 02/28/2020 2:40 PM
--- NOTE | 2020-02-28 14:45 | Diagnostic Imaging Report ---
Examination: CT Face without Contrast History:Face injury Comparison studies: None Technique: Axial images were obtained through the maxillofacial region. Coronal and sagittal reconstructions obtained from the axial data. Dose modulation, iterative reconstruction, and/or weight based adjustment of the mA/kV was utilized to reduce the radiation dose to as low as reasonably achievable. Intravenous contrast: None Findings: Soft tissues: No abnormalities. Bones: No fractures or bony abnormalities. Orbits: Globes: Intact. Bilateral slitlike orbital lenses Extra or intraconal abnormalities: None. Paranasal sinuses: Clear. IMPRESSION: No acute facial fracture. Signed by: Dr. Marine Ring M.D. on 02/28/2020 2:42 PM
--- NOTE | 2020-02-28 14:47 | Diagnostic Imaging Report ---
Exam: FOREARM LEFT 2 VIEW, WRIST COMPLETE LEFT History: Fall Comparison: None. Findings: Evaluation is partially limited by positioning, especially wrist evaluation. No acute displaced fracture visualized given exam limitations with marked flexion at the wrist and diffuse osseous demineralization. No gross joint dislocation. Degenerative arthrosis is mild at the radiocarpal joint and moderate at the triscaphe joint. Soft tissues are unremarkable. Impression: 1. No acute displaced fracture visualized given exam limitations with marked flexion of the wrist and diffuse osseous demineralization. 2. 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 Signed by: Dr. Ken Ocasio M.D. on 02/28/2020 2:44 PM
--- NOTE | 2020-02-28 14:48 | Diagnostic Imaging Report ---
Examination: CT CERVICAL SPINE WO HISTORY:Fall. COMPARISON:None. TECHNIQUE: Multidetector helical axial images were obtained without contrast from the foramen magnum to T1. Coronal and sagittal reformatted images were done. Bone and soft tissue windows were evaluated. Dose modulation, iterative reconstruction, and/or weight based adjustment of the mA/kV was utilized to reduce the radiation dose to as low as reasonably achievable. FINDINGS: Alignment:Normal alignment and lordosis. Vertebrae: Normal height and density. No acute fracture, infection or neoplasm. Disc space heights: Normal height. Caliber of spinal canal: Developmentally normal. Posterior fossa and craniocervical junction: Foramen magnum patent. No Chiari 1 malformation. Soft tissues: No abnormality. Degenerative changes: C2-C3: Bilateral uncovertebral and facet arthropathy result in mild bilateral neural foraminal narrowing. No canal stenosis. C3-C4: Asymmetric to the left disc osteophyte complex and bilateral uncovertebral and facet arthropathy result in mild right and severe left neural foraminal narrowing. No canal stenosis. C4-C5: Diffuse disc osteophyte complex and bilateral uncovertebral and facet arthropathy result in moderate bilateral neural foraminal narrowing. No canal stenosis. C5-C6: Diffuse disc osteophyte complex and bilateral uncovertebral and facet arthropathy result in mild bilateral neural foraminal narrowing. No canal stenosis. C6-C7: Diffuse disc osteophyte complex and bilateral uncovertebral arthropathy result in moderate bilateral neural foraminal narrowing. No canal stenosis. Visualized lung apices: No abnormalities. IMPRESSION: 1. No acute abnormality, specifically, no acute fracture. 2. Degenerative changes as above. Signed by: Dr. Marine Ring M.D. on 02/28/2020 2:45 PM
== END 2020-02-28 15:25 | disposition home or self-care (01) ==
LOC: ER 13:38
DX: S00.83XA Contusion of other part of head, initial encounter (principal); S63.502A Unspecified sprain of left wrist, initial encounter; W01.0XXA Fall on same level from slipping, tripping and stumbling without subsequent striking against object, initial encounter; Y93.01 Activity, walking, marching and hiking; I10 Essential (primary) hypertension; E78.5 Hyperlipidemia, unspecified; M10.9 Gout, unspecified; Z86.73 Personal history of transient ischemic attack (TIA), and cerebral infarction without residual deficits
CPT/HCPCS: 70450; 70486; 72125; 99284

== ENCOUNTER 2024-11-11 18:09 | Inpatient (IN) | payer MEDICARE ==
[~2024-11-11] VITALS: Ht 174 cm; Wt 68.0 kg
[2024-11-11 19:25] LABS: BASOPHILS % 0.2 % (0.0-1.0); EOSINOPHILS % 0.8 % (0.0-6.0); LYMPHOCYTES % 7.0 % (18.0-39.1); MONOCYTES % 7.7 % (4.4-11.3); NEUTROPHILS % 83.6 % (38.7-80.0); RED CELL DISTRIBUTION WIDTH 13.2 % (11.7-14.4)
[2024-11-11 19:44] LABS: EST GLOMERULAR FILTRATION RATE 67.0 ML/MIN (>=60)
[2024-11-11 20:36] LABS: LEUKOCYTE ESTERASE ,URINE LARGE (NEGATIVE); PROTEIN,URINE DIPSTICK 2+ (NEGATIVE); URINE UROBILINOGEN 0.2 mg/dL (0.2 - 1)
[2024-11-11 20:49] LABS: WBC,URINE (MAN) >50 /HPF (0-5)
[2024-11-11] MEDS ORDERED: ONDANSETRON HCL INJ 2MG/ML 2ML 2 MG/ML VIAL IV PRN (21:45)
[2024-11-11] MEDS ORDERED: ACETAMINOPHEN 325 MG TAB PO PRN (21:45)
[2024-11-11 22:15] VITALS: PULSE 68; RESP 16; TEMP 98.2; O2SAT 98
[2024-11-11] MEDS: SODIUM CHLORIDE 0.9% 1000ML 1,000 ML IV ONE (22:27)
[2024-11-11 23:00] VITALS: BP 109/59; PULSE 68; RESP 16; TEMP 98.2; O2SAT 98
[2024-11-11 23:25] VITALS: BP 109/67; PULSE 68; RESP 18; TEMP 98.3; O2SAT 96
[2024-11-11] MEDS ORDERED: FEROSUL325 MG PO (23:32)
[2024-11-11] MEDS ORDERED: NEURONTIN100 MG PO (23:32)
[2024-11-11] MEDS ORDERED: METFORMIN HCL500 M1 PO (23:32)
[2024-11-11] MEDS ORDERED: FOLIC ACID0.4 MG PO (23:32)
[2024-11-12] VITALS (7 sets, daily range): BP systolic 117–136; BP diastolic 61–74; PULSE 60–74; RESP 18–20; TEMP 97.5–98.6; O2SAT 96–100
[2024-11-12 06:32] LABS: BASOPHILS % 0.3 % (0.0-1.0); EOSINOPHILS % 0.9 % (0.0-6.0); LYMPHOCYTES % 9.1 % (18.0-39.1); MONOCYTES % 7.6 % (4.4-11.3); NEUTROPHILS % 81.1 % (38.7-80.0); RED CELL DISTRIBUTION WIDTH 13.2 % (11.7-14.4)
[2024-11-12 06:53] LABS: EST GLOMERULAR FILTRATION RATE 71.0 ML/MIN (>=60)
[2024-11-12] MEDS ORDERED: ALBUTEROL/IPRATROPIUM 3 ML NEB NEB PRN (09:45)
[2024-11-12] MEDS ORDERED: BENZONATATE 100 MG CAP PO PRN (09:45)
[2024-11-12] MEDS ORDERED: MELATONIN 5 MG TABLET PO PRN (09:45)
[2024-11-12] MEDS ORDERED: DIPHENHYDRAMINE HCL 25 MG CAP PO PRN (09:45)
[2024-11-12] MEDS ORDERED: LIDOCAINE 4% PATCH TP PRN (09:45)
[2024-11-12] MEDS ORDERED: DEXTROSE 50% SYRINGE 50 ML IV PRN ×2 (09:45)
[2024-11-12] MEDS ORDERED: DOCUSATE SODIUM 100 MG CAP PO PRN (09:45)
[2024-11-12] MEDS ORDERED: HYDRALAZINE HCL 20 MG/ML VIAL IV PRN (09:45)
[2024-11-12] MEDS: SODIUM CHLORIDE 0.9% 1000ML 1,000 ML IV SCH (10:50)
[2024-11-12] MEDS: INSULIN LISPRO 100 UNIT/1 ML 3ML VIAL SQ SCH (11:57)
[2024-11-12] MEDS: ENOXAPARIN SOD INJ 40 MG/0.4 ML SYR SC SCH (16:33)
[2024-11-12] MEDS: BACLOFEN 10 MG TAB PO SCH (16:33)
[2024-11-12] MEDS: ATORVASTATIN 40 MG TAB PO SCH (21:09)
[2024-11-12] MEDS: ALLOPURINOL 300 MG TAB PO SCH (21:09)
[2024-11-13] VITALS (8 sets, daily range): BP systolic 103–145; BP diastolic 58–75; PULSE 52–68; RESP 16–18; TEMP 97.2–98.2; O2SAT 98–100
[2024-11-13] MEDS: ACETAMINOPHEN 325 MG TAB PO PRN (06:01)
[2024-11-13 06:07] LABS: BASOPHILS % 0.4 % (0.0-1.0); EOSINOPHILS % 1.9 % (0.0-6.0); LYMPHOCYTES % 15.5 % (18.0-39.1); MONOCYTES % 6.8 % (4.4-11.3); NEUTROPHILS % 74.6 % (38.7-80.0); RED CELL DISTRIBUTION WIDTH 13.2 % (11.7-14.4)
[2024-11-13 06:47] LABS: EST GLOMERULAR FILTRATION RATE 88.0 ML/MIN (>=60); PHOSPHORUS 2.8 MG/DL (2.3-4.7)
[2024-11-13] MEDS: PANTOPRAZOLE SOD 40 MG TABEC PO SCH (08:54)
[2024-11-13] MEDS: DONEPEZIL HCL 5 MG TAB PO SCH (08:54)
[2024-11-13] MEDS: ASPIRIN 81 MG CHEW TAB PO SCH (08:55)
[2024-11-13] MEDS: FLUOXETINE HCL 20 MG CAP PO SCH (08:55)
[2024-11-14] VITALS (11 sets, daily range): BP systolic 133–146; BP diastolic 55–74; PULSE 51–74; RESP 16–19; TEMP 97–97.7; O2SAT 92–100
[2024-11-15] VITALS (11 sets, daily range): BP systolic 123–152; BP diastolic 56–72; PULSE 55–65; RESP 16–20; TEMP 97.5–98.2; O2SAT 95–100
[2024-11-15 06:31] LABS: BASOPHILS % 0.3 % (0.0-1.0); EOSINOPHILS % 2.2 % (0.0-6.0); LYMPHOCYTES % 19.2 % (18.0-39.1); MONOCYTES % 5.2 % (4.4-11.3); NEUTROPHILS % 72.7 % (38.7-80.0); RED CELL DISTRIBUTION WIDTH 13.1 % (11.7-14.4)
[2024-11-15 07:02] LABS: EST GLOMERULAR FILTRATION RATE 90.0 ML/MIN (>=60)
[2024-11-15] MEDS: POTASSIUM CHLORIDE 20 MEQ TAB CR PO PRN (10:22)
[2024-11-16] VITALS (11 sets, daily range): BP systolic 124–148; BP diastolic 61–79; PULSE 60–74; RESP 16–21; TEMP 97.4–98.6; O2SAT 95–100
[2024-11-17] VITALS (9 sets, daily range): BP systolic 112–147; BP diastolic 59–74; PULSE 58–85; RESP 17–20; TEMP 97.4–97.8; O2SAT 95–100
[2024-11-17 05:54] LABS: BASOPHILS % 0.3 % (0.0-1.0); EOSINOPHILS % 2.3 % (0.0-6.0); LYMPHOCYTES % 21.5 % (18.0-39.1); MONOCYTES % 5.7 % (4.4-11.3); NEUTROPHILS % 69.5 % (38.7-80.0); RED CELL DISTRIBUTION WIDTH 12.9 % (11.7-14.4)
[2024-11-17 06:15] LABS: EST GLOMERULAR FILTRATION RATE 90.0 ML/MIN (>=60)
[2024-11-18] VITALS: BP 130/64; PULSE 62; RESP 18; TEMP 97.7; O2SAT 98
[2024-11-18 04:00] VITALS: BP 128/75; PULSE 61; RESP 18; TEMP 97.6; O2SAT 98
[2024-11-18 07:25] VITALS: PULSE 69; RESP 20; O2SAT 97
[2024-11-18 08:00] VITALS: BP 121/69; PULSE 59; RESP 19; TEMP 97.5; O2SAT 97
[2024-11-18 09:18] VITALS: BP 121/69; PULSE 59; RESP 19; TEMP 97.5; O2SAT 97
[2024-11-18 12:00] VITALS: BP 103/61; PULSE 79; RESP 20; TEMP 97.7; O2SAT 99
[2024-11-18] MEDS ORDERED: ONDANSETRON HCL 4 MG ORAL DISINTEGRATING TAB PO PRN (14:15)
== END 2024-11-18 14:34 | DRG 689 ==
LOC: ER 19:16 → ERHOLD 21:43 → MED/SURG3 23:21
PROVIDERS: ADMIT Internal Medicine; ATTEND Internal Medicine
DX: N39.0 Urinary tract infection, site not specified (principal); G93.41 Metabolic encephalopathy; I69.354 Hemiplegia and hemiparesis following cerebral infarction affecting left non-dominant side; E11.9 Type 2 diabetes mellitus without complications; B96.20 Unspecified Escherichia coli [E. coli] as the cause of diseases classified elsewhere; E78.00 Pure hypercholesterolemia, unspecified; E86.0 Dehydration; I10 Essential (primary) hypertension; R00.1 Bradycardia, unspecified; M10.9 Gout, unspecified; F03.90 Unspecified dementia, unspecified severity, without behavioral disturbance, psychotic disturbance, mood disturbance, and anxiety; Z11.52 Encounter for screening for COVID-19; Z79.82 Long term (current) use of aspirin; Z79.84 Long term (current) use of oral hypoglycemic drugs
CPT/HCPCS: 36415; 70450; 70551; 71045; 80048; 80053; 81001; 82948; 83518; 83735; 84100; 84443; 84484; 85025; 87040; 87070; 87086; 87186; 93005; 93306; 93880; 94799; 99252; 99284; J0696; J1650; J2470; J7030